=== PATIENT | male | born 1945 | race Caucasian/White ===

== ENCOUNTER 2016-10-13 22:45 | Inpatient (IN) ==
[2016-10-14 00:15] LABS: MANUAL DIFF NEEDED? NO
[2016-10-14 00:16] LABS: URINE CULTURE NEEDED? NO; URINE MICRO REVIEW NEEDED? NO; URINE SOURCE CLEAN CATCH
[2016-10-14 00:25] LABS: BASO% 0.2 % (0.0-0.8); EOS# 0.21 X1000 (0.0-0.7); EOS% 2.4 % (0.0-10.0); HEMOGLOBIN 15.1 g/dL (14.0-18.0); LYMPH# 1.58 X1000 (1.2-3.4); LYMPH% 18.4 % (20.5-51.1); MCHC 33.6 g/dL (33-37); MCV 89.3 FL (81-99); MONO# 0.81 X1000 (0.11-0.59); MONO% 9.4 % (1.7-9.3); MPV 11.3 FL (7.4-10.4); NEUT% 69.6 % (42.2-75.2); PLT 187 X1000 (130-400); RBC 5.04 XMIL (4.7-6.1)
[2016-10-14 00:26] LABS: BILIRUBIN URINE NEGATIVE (NEGATIVE); BLOOD URINE NEGATIVE (NEGATIVE); COLOR YELLOW; GLUCOSE URINE >1000 mg/dL (NEGATIVE); LEUKOCYTES URINE NEGATIVE (NEGATIVE); NITRITE URINE NEGATIVE (NEGATIVE); PROTEIN URINE NEGATIVE (NEGATIVE); SP GRAVITY URINE 1.018; TURBIDITY URINE CLEAR (CLEAR); UROBILINOGEN URINE NORMAL (NORMAL)
[2016-10-14 00:27] LABS: UR EPITHELIAL CELLS <10 /HPF (<10); URINE BACTERIA NEGATIVE /HPF; URINE RBC <10 /HPF (<10); URINE WBC <10 /HPF (<10)
[2016-10-14] MEDS ORDERED: ZOFRAN ONE (01:00)
[2016-10-14] MEDS ORDERED: DILAUDID ONE (01:01)
[2016-10-14 02:58] LABS: ALBUMIN 4.5 g/dL (3.5-5.0); CALCIUM 9.8 mg/dL (8.8-10.2); POTASSIUM 5.2 mmol/L (3.5-5.1); TOTAL BILIRUBIN 0.78 mg/dL (0.20-1.00); TOTAL PROTEIN 7.5 g/dL (6.3-8.3)
[2016-10-14] MEDS ORDERED: DILAUDID IV ONE ×4 (03:04→08:37)
[2016-10-14] MEDS ORDERED: ZOFRAN IV ONE (03:04)
--- NOTE | 2016-10-14 04:26 | PROVIDER DOCUMENTATION ---
This chart was entered by Jessa Lopez Scribe, acting as scribe for Jam Sykes MD. HPI-Abdominal Pain/GI Problem - General Chief Complaint: Abdominal Pain Stated Complaint: NAUSEA/ABD PAIN/DIARRHEA Time Seen by Provider: 10/13/16 23:43 Source: patient Allergies/Adverse Reactions: Patient Allergies Allergy/AdvReac Type Severity Reaction Status Date / Time No Known Allergies Allergy Verified 09/10/15 04:57 Home Medications: Home Medication List Medication Instructions Recorded Confirmed Last Taken Type Aspirin [Aspirin EC] 81 mg PO DAILY 10/13/16 10/13/16 10/13/16 09:00 History Canagliflozin [Invokana] 300 mg PO QAM 10/13/16 10/13/16 Unknown History Carvedilol [Coreg] 6.25 mg PO BID 10/13/16 10/13/16 Unknown History Cetirizine HCl [Zyrtec] 10 mg PO DAILY 10/13/16 10/13/16 Unknown History Dulaglutide [Trulicity] 1 each SUBQ DIRECTED 10/13/16 10/13/16 Unknown History Furosemide [Lasix] 20 mg PO QAM 10/13/16 10/13/16 Unknown History Furosemide [Lasix] 40 mg PO QPM 10/13/16 10/13/16 Unknown History Gemfibrozil 600 mg PO BID 10/13/16 10/13/16 Unknown History Glipizide 10 mg PO BID 10/13/16 10/13/16 Unknown History Losartan Potassium [Cozaar] 100 mg PO QAM 10/13/16 10/13/16 Unknown History Metformin [Glucophage] 1,000 mg PO BID 10/13/16 10/13/16 Unknown History Omeprazole [Prilosec] 1 each PO DAILY 10/13/16 10/13/16 Unknown History Rivaroxaban [Xarelto] 20 mg PO QHS 10/13/16 10/13/16 Unknown History Roflumilast [Daliresp] 1 each INH DIRECTED 10/13/16 10/13/16 Unknown History Rosuvastatin Calcium [Crestor] 40 mg PO QHS 10/13/16 10/13/16 Unknown History Salmeterol Xinafoate Inhaler 1 each INH QHS 10/13/16 10/13/16 Unknown History [Serevent Diskus] Tiotropium [place] Inhaler 1 each PO QHS 10/13/16 10/13/16 Unknown History [Spiriva] - History of Present Illness-ABD Nature of Presenting Problems: 71 Y/O M presents to ED with ABD pain. Pt states onset yesterday but has a hx of ABD complications. Pt has a hx of diverticulitis, colostomy, colostomy reversal.. Pt c/o N with watery D, no V. Abdominal Pain Onset Location: reports: suprapubic Pain Radiation: reports: no radiation Quality of Pain: reports: aching Severity in ED: reports: moderate Onset/Duration: reports: 24 hours ago Timing: reports: still present Activities at Onset: reports: none Associated Symptoms: reports: diarrhea, nausea. denies: vomiting Review of Systems - Adult - REVIEW OF SYSTEMS - ADULT Constitutional: denies: chills, fever Eyes: reports: no symptoms reported Ears, Nose, Mouth & Throat: reports: no symptoms reported Cardiovascular: reports: no symptoms reported Respiratory: reports: no symptoms reported Gastrointestinal: reports: abdominal pain, diarrhea, nausea. denies: vomiting Genitourinary: reports: no symptoms reported Musculoskeletal: reports: no symptoms reported Integumentary: reports: no symptoms reported Neurological: reports: no symptoms reported Psychiatric: reports: no symptoms reported Endocrine: reports: no symptoms reported Hematologic/Lymphatic: reports: no symptoms reported Allergic/Immunologic: reports: no symptoms reported All Other Systems: Reviewed and Negative Past History - Adult - PAST MEDICAL HISTORY-ADULT Review of Records: reports: Old Records Reviewed, Nursing Assessment Review, Medications Reviewed, Social history reviewed & non-contributory. Physical Exam-General - PHYSICAL EXAM-ADULT Initial Vital Signs Reviewed: Yes - CONSTITUTIONAL General Appearance: appears well, alert, no apparent distress - EYES Eyes: PERRL/EOMI, pink conjunctivae - HEAD, EARS, NOSE, MOUTH & THROAT HENMT: normocephalic/atraumatic, moist mucous membranes, normal ENT inspection, TMs normal, pharynx normal - NECK Neck: non-tender, full range of motion, supple, normal inspection - RESPIRATORY Respiratory: chest non-tender, lungs clear, normal breath sounds - CARDIOVASCULAR Cardiovascular: normal peripheral pulses, regular rate, rhythm - GASTROINTESTINAL (ABDOMEN) Abdominal Exam: tenderness - LYMPHATIC Lymphatic: no adenopathy - MUSCULOSKELETAL Back Exam: normal inspection Extremity: normal range of motion - SKIN Integumentary: normal color, normal turgor, warm/dry - NEUROLOGIC Neurologic: program support assistant II-XII nml as tested - PSYCHIATRIC Psych/Mental Status: normal mood/affect, normal thought content, normal thought process, oriented x 3 Progress - PLAN OF CARE/RESULTS Progress/Plan/Lab Results: Vital Signs - 8 hr 10/13/16 23:01 Temperature 97.6 F Pulse Rate 91 H Respiratory Rate 18 Blood Pressure 115/65 O2 Sat by Pulse Oximetry 98 Orders Category Date Time Status NPO Diet 10/13/16 23:03 Active flat [FLAT/UPRIGHT ABD/1 VIEW CHEST] [RAD] Stat Exams 10/13/16 23:04 Taken AMYLASE [CHEM] Stat Lab 10/13/16 23:43 Ordered CBC WITH ELECTRONIC DIFF [HEME] Stat Lab 10/13/16 23:43 Ordered COMPREHENSIVE METABOLIC PANEL [CHEM] Stat Lab 10/13/16 23:43 Ordered LIPASE [CHEM] Stat Lab 10/13/16 23:43 Ordered URINALYSIS W/POSS RFLX CULT-1 [URINALYSIS] Stat Lab 10/13/16 23:46 Ordered Result Diagrams: 10/13/16 00:00 10/13/16 00:00 - CT/MRI 1 CT Study: Abdomen, Pelvis CT Results: small bowel obstruction - CONSULTS/PCP/HOSPITALIST Notification #1 *Consult/PCP/Hospitalist*: Joey(surgeon) will consult and see patient in hospital [id number] Consult Disposition: Admit #2 Consult: Hospitalist to admit patient Time Discussed: 04:23 Departure - Departure Time of Disposition Decision: 04:25 DIAGNOSIS: Abdominal pain, Small bowel obstruction Disposition: ADMITTED INPATIENT 09 Certified Medical Emergency: Emergent Condition: Stable Referrals and Follow-Ups: Ashvin Law MD [Primary Care Provider] - - Critical Care Note This patient required my direct & personal management of CC.: Yes This chart was documented by the indicated scribe, (Jessa Lopez Scribe) and accurately reflects the services I performed and decisions made by me, Jam Sykes MD, as attested by the provider's signature.
--- NOTE | 2016-10-14 05:33 | HISTORY AND PHYSICAL ---
CHIEF COMPLAINT: Abdominal pain. PRIMARY CARE PHYSICIAN: Dr. Law. HISTORY OF PRESENTING ILLNESS: A 71-year-old male with a history of diabetes mellitus type 2, coronary artery disease, hypertension, and COPD, had presented to the emergency department with a 2 day history of having abdominal pain. He states that it was more sharp and he had some nausea symptoms. He previously had similar symptoms like this. He had a CAT scan done which did show a small bowel obstruction. Due to these presenting symptoms, it was thought that he would need hospitalization for further management. At the time of my examination, he denied any headache, vision changes, fevers, chills, chest pain, shortness of breath, hemoptysis, or any weight changes but complained of having nausea and abdominal pain. PAST MEDICAL HISTORY: Includes diabetes mellitus type 2, coronary artery disease, hypertension, hyperlipidemia, COPD. PAST SURGICAL HISTORY: Coronary stent, colon surgery, cholecystectomy. ALLERGIES: No known drug allergies. CURRENT MEDICATIONS: As listed in the MAR. SOCIAL HISTORY: He is a former smoker. He denies any history of alcohol or illicit drug use. FAMILY HISTORY: Positive for coronary artery disease in mother. REVIEW OF SYSTEMS: Twelve point review of systems listed as in the HPI. Other systems negative. PHYSICAL EXAMINATION: GENERAL: Cooperative, friendly male. He is resting comfortably now. VITAL SIGNS: Temperature 97.6 degrees, pulse 91, respirations 18, blood pressure 115/65, he is saturating 98%. HEENT: Atraumatic, normocephalic. Extraocular movements intact. PERRLA. NECK: Supple. CHEST: Clear to auscultation. CARDIOVASCULAR: Regular rate and rhythm. ABDOMEN: Soft. Some mild tenderness. Hypoactive sounds. EXTREMITIES: No edema. NEUROLOGIC: He is awake, alert, oriented x3. : No bladder distention. SKIN: Warm. LABORATORIES AND STUDIES: WBCs 8.61, hemoglobin 15.1, hematocrit 45, platelets are 187,000. Sodium 138, potassium 5.2, chloride 99, CO2 is 21, BUN is 36, creatinine is 1.6, glucose is 134. ASSESSMENT: A 71-year-old male with a history of diabetes mellitus type 2, coronary artery disease, hypertension, and chronic obstructive pulmonary disease who had presented to the emergency department with a several day history of having abdominal pain. He was found to have a small bowel obstruction on imaging. Due to his presenting symptoms, he will need hospitalization for further management. 1. Small bowel obstruction. 2. Diabetes mellitus type 2. 3. Hypertension. 4. Chronic obstructive pulmonary disease. PLAN: 1. We will admit patient to medical floor with telemetry. 2. We will keep patient NPO and give him adequate IV fluids, antiemetics, and adequate pain control. 3. We will consult general surgery. 4. We will monitor blood glucose closely and put patient on sliding scale insulin regimen. 5. We will monitor blood pressure and resume antihypertensive agents. 6. We will put the patient on DuoNebs. 7. We will continue patient on Xarelto for DVT prophylaxis. 8. We will continue to follow and reassess. cc: Matthew Lynn MD
[2016-10-14] MEDS ORDERED: NS 1,000 ML IV SCH (06:12)
[2016-10-14] MEDS ORDERED: DUONEB (A & A) INH SCH (07:30)
--- NOTE | 2016-10-14 07:46 | Diag Imaging Result Document ---
PROCEDURE NAME: CT ABD/PELVIS W/ IV CONT ONLY - 10/14/2016 CT ABDOMEN AND PELVIS WITH INTRAVENOUS CONTRAST: TECHNIQUE: Dose reduction protocol. COMPARISON: 09/16/2015. FINDINGS: The gallbladder has been removed. There are scattered splenic granuloma. The spleen is not enlarged. Normal pancreas and adrenal glands. Tiny hypodense hepatic lesion, believed to be a cyst. There is mild fatty infiltration of the liver. There are multiple bilateral renal cysts measuring up to 4.7 cm on the right and 4.0 cm on the left. No renal stones. No hydronephrosis. Small distal abdominal aortic aneurysm measuring 3.0 cm with prominent atherosclerosis and at least mild narrowing to the take off of the celiac artery , SMA, and each renal artery. There are multiple distended proximal and mid small bowel loops. The distal small bowel loops are not distended. No inflammation about the appendix. No abscess. The urinary bladder is only mildly distended. The prostate is not enlarged. IMPRESSION: 1. Mid to distal small bowel obstruction. 2. Cholecystectomy. 3. Fatty infiltration of the liver. 4. Renal cysts. 5. Small abdominal aortic aneurysm with prominent atherosclerosis. A preliminary report was given at the time of the exam. [facility]
[2016-10-14] MEDS: HUMULIN R SUBQ SCH ×5 (08:10→16:10)
[2016-10-14] MEDS: ALBUTEROL NEB INH SCH ×3 (09:00→20:16)
[2016-10-14] MEDS: ZOFRAN IV PRN ×3 (09:05→20:44)
--- NOTE | 2016-10-14 09:16 | Diag Imaging Result Document ---
PROCEDURE NAME: FLAT/UPRIGHT ABD/1 VIEW CHEST - 10/13/2016 PLAIN RADIOGRAPH OF THE CHEST AND ABDOMEN, 4 VIEWS: COMPARISON: Chest radiograph dated 09/19/2015 and chest and abdominal radiograph dated 09/17/2015. FINDINGS: There is mild gaseous distention of several loops of bowel. This appears to be predominantly colonic. It is fairly similar to the previous study. There is no evidence of large- volume free abdominal gas. Otherwise, the abdomen is grossly stable. The lungs are clear. Cardiac silhouette is unremarkable. IMPRESSION: Nonspecific mild gaseous distention of several loops of bowel.
--- NOTE | 2016-10-14 09:40 | CONSULTATION ---
DATE OF CONSULTATION: 10/14/2016 HISTORY OF PRESENT ILLNESS: This is a 71-year-old male with diabetes, coronary disease, hypertension, and chronic obstructive pulmonary disease, who has had multiple abdominal operation complications associated with diverticulitis, including Mark's reversal with leak, open cholecystectomy with a small bowel injury in the past by Dr. Li. He has had multiple recurrent bowel obstructions, last several which have been treated with bowel rest and no NG tube as he refuses these. States that over the last 24 hours he developed lack of flatus and increased abdominal distention and some colicky pain, nausea, but no vomiting, consistent with his previous episodes of bowel obstruction. He presented to the emergency department where CT scan was obtained that confirmed this. Showed no compromised bowel on his labs or CT. MEDICAL HISTORY: Diabetes, coronary disease with stents placed at least 7 years ago, hypertension, hyperlipidemia, and chronic obstructive pulmonary disease. SURGICAL HISTORY: He has had a Mark's for perforated diverticulitis with abscess and peritonitis. Subsequent colostomy reversal that leak it sounds like. He has had an attempt at a laparoscopic cholecystectomy with small-bowel injury that required repair and conversion to open cholecystectomy. MEDICATIONS: Per the MAR, but he does take some anticoagulant he does not recall. SOCIAL HISTORY: History of smoking. Denies alcohol or drugs. FAMILY HISTORY: Coronary disease. REVIEW OF SYSTEMS: Ten point negative, except for what is mentioned history of present illness. PHYSICAL EXAMINATION: Vital Signs: Temperature is 98 degrees, pulse 71, blood pressure 120/71, O2 saturation 98% on room air. General: He is alert, in no acute distress. HEENT: Has no scleral icterus. No cervical lymphadenopathy or masses. Cardiovascular: Normal rate, regular rhythm. Pulmonary: No increased work of breathing. He is on room air. Abdomen: Multiple scars. I do not feel any hernias. He is distended but nontender. There is no peritonitis. He is slightly tympanic. Integument: Otherwise warm and dry. There is no lower extremity edema. Extremities/Neurological: Muscle mass is normal throughout with normal tone and range of motion grossly. LABS: White count is 8, hematocrit 45, platelets are 187. Sodium is 138, potassium a little high at 5.2. Creatinine is 1.6. Glucose 134. LFTs and lipase are normal. Urinalysis greater than 1000 glucose, but otherwise normal. CT scan shows a bowel obstruction with dilation proximally and some relative decompression distally in the mid-small bowel, a cholecystectomy, fatty infiltration of liver, and renal cyst. He has a small abdominal aortic aneurysm at 3 cm. ASSESSMENT: This is a 71-year-old male with recurrent bowel obstruction related to multiple abdominal operations in the past. He has resolved several of these non- operatively. I have recommended NG tube placement but he refuses this, as his last several have resolved without NG tube placement. Colonoscopies within the last year that have shown polyps per the patient. I do not have these reports. Will admit him to the medicine service. We will continue serial exams and labs, IV hydration, and strict NPO. I have recommended NG tube placement for bowel decompression. Discussed risks of not doing this and he refuses, understanding the risk, but states the last several have resolved without this after a couple days of bowel rest. This is not unreasonable, but will need to monitor him closely. No plans for surgical intervention at this time. We will continue follow along. cc: MD Ashvin Rizvi MD MTDD
[2016-10-14] MEDS: PROTONIX IV SCH (09:50)
[2016-10-14] MEDS: DULCOLAX PR SCH (09:52)
[2016-10-14] MEDS: COREG PO SCH ×2 (10:05→20:44)
[2016-10-14] MEDS: COZAAR PO SCH (10:06)
[2016-10-14] MEDS: DILAUDID IV PRN ×2 (16:09→20:49)
--- NOTE | 2016-10-14 17:12 | PROGRESS NOTE ---
DATE: 10/14/2016 SUBJECTIVE: Patient is stable. Still has bloated abdomen and some abdominal distention. Noted to be SBO per CT scan abdomen and pelvis earlier today. OBJECTIVE: Labs acceptable. CV: RRR. Lungs: CTA. Abdomen: No significant bowel sounds. Moderate abdominal distention and soft. Extremities: No edema. Neuro: Nonfocal. Pain medicine on board. ASSESSMENT: 1. SBO. 2. COPD. 3. Type 2 diabetes mellitus. 4. CAD. PLAN: Continue conservative approach with Dulcolax suppositories being given x1. IVF and bowel rest in place. Dr. Kieran Cook is following with us in case surgical means are required to remedy the situation. In the past he has responded to conservative measures. Symptoms thought likely related to adhesions. cc: Ashvin Law MD
[2016-10-14] MEDS: SPIRIVA INH SCH (20:16)
[2016-10-14] MEDS: SEREVENT DISKUS INH SCH (20:16)
[2016-10-14] MEDS: NS 1,000 ML IV SCH ×2 (20:40)
[2016-10-14] MEDS ORDERED: D50W SYRINGE IV ONE (20:41)
[2016-10-14] MEDS: XARELTO PO SCH (20:44)
[2016-10-15] MEDS: ZOFRAN IV PRN ×4 (00:28→14:59)
[2016-10-15] MEDS: DILAUDID IV PRN ×6 (00:28→20:41)
[2016-10-15] MEDS: HUMULIN R SUBQ SCH ×5 (00:33→21:34)
[2016-10-15] MEDS: ALBUTEROL NEB INH SCH ×4 (03:35→20:17)
[2016-10-15] MEDS: NS 1,000 ML IV SCH ×3 (05:55→13:38)
[2016-10-15 06:56] LABS: MANUAL DIFF NEEDED? NO
[2016-10-15 07:04] LABS: BASO% 0.1 % (0.0-0.8); EOS# 0.25 X1000 (0.0-0.7); HEMATOCRIT 41.8 % (42.0-52.0); HEMOGLOBIN 13.8 g/dL (14.0-18.0); IMM GRAN# 0.02 X1000 (0.0-0.04); IMM GRAN% 0.2 % (0.0-0.5); LYMPH# 1.12 X1000 (1.2-3.4); LYMPH% 13.2 % (20.5-51.1); MCH 29.9 PG (27-31); MCV 90.5 FL (81-99); MONO# 0.67 X1000 (0.11-0.59); MONO% 7.9 % (1.7-9.3); MPV 10.9 FL (7.4-10.4); NEUT% 75.6 % (42.2-75.2); PLT 155 X1000 (130-400); RBC 4.62 XMIL (4.7-6.1)
--- NOTE | 2016-10-15 08:10 | PROGRESS NOTE ---
DATE: 10/15/2016 SUBJECTIVE: No abdominal pain. He started passing gas this morning. No nausea, vomiting overnight. OBJECTIVE: Vital Signs: Temperature is 99, pulse 89, blood pressure 139/80. Oxygen saturation 95% on room air. General: He is alert, in no acute distress. HEENT: No scleral icterus. Cardiovascular: Normal rate, regular rhythm. Pulmonary: He is on room air with no increased work of breathing. Abdomen: Soft, much less distended, nontender. Integument: Warm, dry. No lower extremity edema. LABS: White count is 8, hematocrit 41, platelets are 155. Glucose 85. Abdominal x-ray this morning shows air throughout the colon. No significant small bowel loop dilation. ASSESSMENT AND PLAN: A 71-year-old male with history of recurrent bowel obstruction, multiple abdominal operations. He has resolved this nonoperatively. This morning will give him clear liquids. Plan to advance the diet to soft tomorrow, and maybe home tomorrow. He is on IV fluids. Dr. Law is following to manage his medical issues. cc: MD Ashvin Rizvi MD
[2016-10-15] MEDS: SODIUM CHLORIDE 0.9% INJ SCH (08:16)
[2016-10-15] MEDS: PROTONIX IV SCH (08:16)
[2016-10-15] MEDS: COZAAR PO SCH (08:18)
[2016-10-15] MEDS: COREG PO SCH ×2 (08:18→21:33)
[2016-10-15] MEDS: DULCOLAX PR SCH (08:19)
[2016-10-15 08:30] LABS: CALCIUM 9.4 mg/dL (8.8-10.2); POTASSIUM 4.7 mmol/L (3.5-5.1)
--- NOTE | 2016-10-15 08:48 | Diag Imaging Result Document ---
PROCEDURE NAME: ABDOMEN FLAT/UPRIGHT - 10/15/2016 FLAT AND UPRIGHT RADIOGRAPH OF THE ABDOMEN, 4 VIEWS: COMPARISON: 10/13/2016. FINDINGS: There has been interval improvement of the mildly gas distended loops of bowel seen on the previous study. There is now patchy bowel gas and stool with only very mild distention of a few loops. There is no evidence of large-volume free abdominal gas. There is no definite organomegaly. IMPRESSION: Interval improvement of gaseous distention of bowel.
--- NOTE | 2016-10-15 13:28 | PROGRESS NOTE ---
DATE: 10/15/2016 SUBJECTIVE: Patient overall feeling some better. Less abdominal pain. He was sleeping. A little bit difficult to wake up but not bad. OBJECTIVE: Vital signs: Afebrile, pulse 89, respirations 16, blood pressure 139/80, O2 saturation on room air 94 to 96%. General: Patient is now aroused, awake and alert. Answers questions appropriately. He is smiling. He says his belly is less distended. Cardiovascular: RRR. Lungs: CTA. Abdomen: Soft. Active bowel sounds. Decreased distention is noted. Still mild distention. Extremities: No edema. IMAGING: X-rays done this morning on the abdomen reveal improved small bowel obstruction. LABS: White count 8, hemoglobin 13.8, platelets 155,000. BMP shows 39 BUN, creatinine 1.6, potassium 4.7, sodium 137. ASSESSMENT: 1. Small bowel obstruction. Improving with conservative measures. 2. Chronic obstructive pulmonary disease. 3. Type 2 diabetes mellitus. 4. Coronary artery disease. PLAN: Continue IVF and daily Dulcolax suppositories. We will reduce his Dilaudid dose. Continue sliding scale insulin and COPD medications. He is now up to clear liquids per Dr. Cook, the surgeon. Repeat x-ray in the morning. cc: Ashvin Law MD
[2016-10-15] MEDS: SPIRIVA INH SCH (20:17)
[2016-10-15] MEDS: SEREVENT DISKUS INH SCH (20:18)
[2016-10-15] MEDS: XARELTO PO SCH (20:41)
[2016-10-16] MEDS: DILAUDID IV PRN (00:17)
[2016-10-16] MEDS: ALBUTEROL NEB INH SCH ×4 (03:23→20:08)
[2016-10-16 06:44] LABS: MANUAL DIFF NEEDED? NO
[2016-10-16 06:49] LABS: BASO% 0.2 % (0.0-0.8); EOS# 0.25 X1000 (0.0-0.7); EOS% 5.4 % (0.0-10.0); LYMPH# 1.41 X1000 (1.2-3.4); LYMPH% 30.3 % (20.5-51.1); MCH 30.1 PG (27-31); MCHC 33.3 g/dL (33-37); MCV 90.2 FL (81-99); MONO# 0.53 X1000 (0.11-0.59); MONO% 11.4 % (1.7-9.3); MPV 10.3 FL (7.4-10.4); NEUT% 52.7 % (42.2-75.2); PLT 114 X1000 (130-400); RBC 3.99 XMIL (4.7-6.1)
[2016-10-16 07:13] LABS: CALCIUM 8.9 mg/dL (8.8-10.2)
--- NOTE | 2016-10-16 09:06 | PROGRESS NOTE ---
DATE: 10/16/2016 SUBJECTIVE: Patient overall doing well, is passing gas readily, no stool. No significant abdominal pain. OBJECTIVE: Vital signs: Afebrile. Pulse 69, respirations 18, blood pressure 148/74, O2 sat on room air 95%. CV: RRR. Lungs: CTA. Abdomen: Protuberant, active bowel sounds noted in all 4 quadrants. No pinpoint tenderness. Mild distension. Extremities: No calf tenderness, cord, or edema. LABS: White count 4.66, hemoglobin 12, platelets 114. Sodium 140, potassium 4.0, BUN 31, creatinine 1.3, CO2 of 22, glucose 112. ASSESSMENT: 1. Small bowel obstruction, improving. 2. Chronic obstructive pulmonary disease. 3. Type 2 diabetes mellitus. 4. Coronary artery disease. 5. Leukopenia/thrombocytopenia. PLAN: At this time, continue daily Dulcolax suppositories. Will advance his diet to GI soft diet. Continue to monitor blood sugars and give SSI as required. He has just had a KUB this morning, and will review that. Will ambulate the patient, recheck later today. cc: Ashvin Law MD
[2016-10-16] MEDS: PROTONIX IV SCH (09:44)
[2016-10-16] MEDS: SODIUM CHLORIDE 0.9% INJ SCH (09:44)
[2016-10-16] MEDS: COZAAR PO SCH (09:44)
[2016-10-16] MEDS: COREG PO SCH ×2 (09:45→21:07)
[2016-10-16] MEDS: DULCOLAX PR SCH (09:45)
--- NOTE | 2016-10-16 10:12 | Diag Imaging Result Document ---
PROCEDURE NAME: CASEY ABDOMEN - 10/16/2016 ABDOMEN TWO VIEWS: FINDINGS: No free air beneath the diaphragm. There is a surgical clip in the right upper quadrant likely from cholecystectomy. No bowel obstruction. No organomegaly. Mild degenerative spine changes. IMPRESSION: No definite obstruction on the current exam.
[2016-10-16] MEDS: HUMULIN R SUBQ SCH ×4 (11:43→21:08)
--- NOTE | 2016-10-16 13:43 | PROGRESS NOTE ---
DATE: 10/16/2016 SUBJECTIVE: Feels better. Continues to pass gas. No nausea, vomiting. Tolerating oral intake. OBJECTIVE: Vital signs: No fevers. Pulse 69, blood pressure 148/74. Abdomen: Soft, much less distended, nontender. Integument: Warm ,dry. HEENT: No scleral icterus. Cardiovascular: Normal rate, regular rhythm. LABS: White count down to 4, hematocrit 36, creatinine is 1.3, glucose 112. ASSESSMENT/PLAN: This is a 71-year-old male with multiple abdominal operations who presents with a episode of bowel obstruction that resolved nonoperatively. Will advance the diet to soft today. If he tolerates this be okay for him to go home. He can follow up with me as needed in the future, will not schedule appointment but I have given my contact information. He can call if he has any issues. cc: MD Ashvin Rizvi MD
[2016-10-16] MEDS: NS 1,000 ML IV SCH (14:27)
[2016-10-16] MEDS: PROTONIX PO SCH (14:38)
[2016-10-16] MEDS: SPIRIVA INH SCH (20:08)
[2016-10-16] MEDS: SEREVENT DISKUS INH SCH (20:08)
[2016-10-16] MEDS: XARELTO PO SCH (21:07)
[2016-10-16] MEDS ORDERED: TYLENOL PO PRN (21:21)
[2016-10-17] MEDS: ALBUTEROL NEB INH SCH ×2 (03:41→08:07)
[2016-10-17] MEDS: HUMULIN R SUBQ SCH (06:34)
[2016-10-17 07:03] LABS: MANUAL DIFF NEEDED? NO
[2016-10-17 07:07] LABS: BASO% 0.2 % (0.0-0.8); EOS# 0.31 X1000 (0.0-0.7); EOS% 6.3 % (0.0-10.0); HEMATOCRIT 37.5 % (42.0-52.0); HEMOGLOBIN 12.7 g/dL (14.0-18.0); LYMPH# 1.33 X1000 (1.2-3.4); LYMPH% 27.2 % (20.5-51.1); MCH 30.2 PG (27-31); MCHC 33.9 g/dL (33-37); MCV 89.3 FL (81-99); MONO# 0.52 X1000 (0.11-0.59); MONO% 10.6 % (1.7-9.3); MPV 10.9 FL (7.4-10.4); NEUT% 55.7 % (42.2-75.2); PLT 131 X1000 (130-400)
--- NOTE | 2016-10-17 07:14 | PROGRESS NOTE ---
DATE: 10/17/2016 SUBJECTIVE: Patient doing well. Tolerating a GI soft diet. Having a bowel movement. No nausea, no vomiting. OBJECTIVE: Vital Signs: Patient is currently afebrile. His vital signs have been stable. General: No acute distress. HEENT: Normocephalic atraumatic. Pupils equal, round, reactive to light. Mucous membranes moist. Oropharynx benign. Neck: Supple. Trachea midline. Cardiovascular: Regular rate and rhythm. Lungs: Grossly clear. Abdomen: Soft. Nontender. Positive bowel sounds. LABORATORY: From yesterday reviewed, essentially within normal limits. ASSESSMENT AND PLAN: A 71-year-old, male with a small-bowel obstruction after multiple surgical interventions. Small-bowel obstruction: The patient resolved clinically. From a surgical point of view he could be discharged home. cc: MD Ashvin Osullivan MD
[2016-10-17] MEDS: DULCOLAX PR SCH ×2 (07:30→08:06)
[2016-10-17] MEDS: COZAAR PO SCH ×2 (07:30→08:06)
[2016-10-17] MEDS: PROTONIX PO SCH ×2 (07:31→08:06)
[2016-10-17] MEDS: COREG PO SCH ×2 (07:31→08:06)
[2016-10-17 07:43] VITALS: BP 127/97
[2016-10-17 07:43] LABS: AGAP 14; BUN 22 mg/dL (8-22); CALCIUM 9.4 mg/dL (8.8-10.2); CHLORIDE 106 mmol/L (98-107); COSMO 291; POTASSIUM 4.4 mmol/L (3.5-5.1); SODIUM 143 mmol/L (136-145); TCO2 23 mmol/L (25-35)
--- NOTE | 2016-10-17 09:02 | PROGRESS NOTE ---
DATE: 10/17/2016 SUBJECTIVE: Mr. Cherry is doing better. The patient is passing flatus. He had a bowel movement. No abdominal pain. No nausea or vomiting. His x-ray done yesterday did show resolution of his obstruction. The patient evaluated by surgeon who also cleared him to be discharged from surgical point of view. No typical chest pain, palpitations. No fever or chills. The patient is ambulating well. Patient is not requiring any injectable pain medication. Patient admitted with small bowel obstruction. Known case of NIDDM, coronary artery disease, COPD, recurrent small- bowel obstruction. OBJECTIVE: Vital signs: Noted, which is stable. Lungs: Bilateral good air entry present. CVS: S1 and S2 heard. Abdomen: Soft, globular. Bowel sounds present. Mild distention. Extremities: No cyanosis, clubbing. No acute DVT. SECURITY DEVELOPER: Alert, awake. Able to move all 4 limbs. LAB DATA: Done today, WBC count 4.89, hemoglobin 12.7, hematocrit 37.5, platelet count 131. Electrolytes fairly benign. BUN was 22, creatinine 1.1. Blood sugar was 138. Patient is eager to go home. PLAN: As per PMD recommendation, I am going to discharge patient home. X-ray also showed improvement. CONSIDERATION/ASSESSMENT: 1. Small bowel obstruction. 2. Noninsulin-dependent diabetes mellitus. 3. Coronary artery disease. No chest pain. 4. Chronic obstructive pulmonary disease. Advised patient to stay on full liquid to GI soft diet. Take medicine regularly. Follow up with Dr. Law as scheduled in case of unusual abdominal pain, nausea, vomiting, constipation come to the emergency room. Overall discharge condition satisfactory. cc: MD Ashvin Vizcarra MD
--- NOTE | 2016-11-30 05:16 | DISCHARGE SUMMARY ---
ADMISSION DATE: 10/14/2016 DISCHARGE DATE: 10/17/2016 DIAGNOSES: 1. Small bowel obstruction responsive to conservative measures. 2. Type 2 diabetes mellitus. 3. Coronary artery disease. 4. Hypertension. 5. Chronic obstructive pulmonary disease. 6. Dyslipidemia. 7. Leukopenia/thrombocytopenia mild. 8. 3.0 cm abdominal aortic aneurysm. 9. Fatty liver. 10. Mild dehydration resolved. 11. PAF on chronic Xarelto. CONSULTANTS: Dr. Kieran Cook M.D. General Surgery. PROCEDURES: CT scan of abdomen and pelvis with IV contrast done 10/14/2016 revealing mid to distal small bowel obstruction. Prior cholecystectomy. Fatty liver. Renal cyst. Small AAA with prominent atherosclerosis. REASON FOR ADMISSION AND HOSPITAL COURSE: The patient is a 71-year-old white male followed in my medical practice who presented to the emergency room with a sharp abdominal pain for 2 days prior to admission and nausea. Similar symptoms for what he has had was SBO in the past. CT scan of the abdomen did confirm SBO. The patient was admitted and given IV hydration, given antiemetics. He refused NG-tube but fortunately responded to Dulcolax suppositories and antiemetics. The SBO resolved gradually over the next few days. Dr. Kieran Cook assisted in his care and in surgical consultation. LABORATORY DATA: On admission, white count 8.61, at discharge 4.89. Hemoglobin 15.1 and 12.7, platelets normal. Severo at 114, discharge 131. CMP was notable for a potassium of 5.2 and creatinine 1.6 on admission. Amylase, lipase and LFTs normal by discharge, and hydration discharge creatinine was 1.1 and potassium 4.4. Flat and upright of the abdomens were repeated and showed resolution of the SBO and the patient began to tolerate liquids and then GI soft diet. By 10/17/2016, it was thought he could be discharged home to follow up in my office in a week. DISCHARGE MEDICATIONS: 1. Lasix 60 mg p.o. every morning. 2. Zyrtec 10 mg p.o. daily. 3. Spiriva 1 inhalation daily. 4. Serevent 1 puff daily. 5. Trulicity 1.5 mg subcutaneously 1 time per week. 6. Glipizide 10 mg p.o. b.i.d. 7. Invokana 300 mg p.o. every morning. 8. Crestor 40 mg p.o. at bedtime. 9. Metformin 1000 mg p.o. b.i.d. 10. Xarelto 20 mg p.o. at bedtime. 11. Coreg 6.25 mg p.o. b.i.d. 12. Cozaar 100 mg p.o. daily. 13. Aspirin 81 mg p.o. daily. 14. Omeprazole 20 mg p.o. daily. 15. Daliresp 500 mcg p.o. daily. 16. Lopid 600 mg p.o. b.i.d. cc: Ashvin Law MD
--- NOTE | 2016-12-29 08:25 | CONSULTATION ---
DATE OF CONSULTATION: 12/28/2016 HISTORY OF PRESENT ILLNESS: This is a 71-year-old male, known to me, who is patient of Dr. Schneider, who has a history of chronic recurring small bowel obstruction after multiple abdominal operation, most of which were performed by Dr. Li. He usually resolves these within a short interval after bowel rest. He refused NG tube and for the most part manages these bowel obstructions himself and seems to do okay with this. He states that after a large meal of fresh vegetables, corn, turnip greens, okra he developed acute onset of abdominal distention, colicky pain with severe vomiting. He continued to pass gas through this, but would vomit bilious emesis throughout, prompting his emergency room presentation. He was given fluids, antiemetics, and some pain medicine and he feels much better. He showered this morning. He said he continues to pass gas and his distention is much improved during his brief admission. PAST MEDICAL HISTORY: Diabetes, coronary disease with stents, hypertension, hyperlipidemia, COPD, atrial fibrillation on anticoagulation. PAST SURGICAL HISTORY: He has had a Mark's procedure for perforated diverticulitis complicated by an abscess and peritonitis. He had a subsequent colostomy reversal which apparently leaked. He had laparoscopic converted open cholecystectomy with a small bowel injury. SOCIAL HISTORY: History of smoking but denies any current use, including alcohol or drugs. FAMILY HISTORY: Coronary disease. REVIEW OF SYSTEMS: Ten point otherwise negative except was is mentioned in the HPI. PHYSICAL EXAMINATION: Vital Signs: Temperature is 97.8 degrees, pulse 70, blood pressure 147/74, oxygen saturation is 98% on room air. General: He is alert, no acute distress. Neck: There are no cervical masses. HEENT: No scleral icterus. Cardiovascular: Normal rate. Regular rhythm. Pulmonary: No increased work of breathing. Abdomen: Soft, nontender, nondistended, non- tympanic. Integumentary: Otherwise warm, dry. I do not see any lower extremity edema. LABS: White count when he came in it was 16, down to 8. Hematocrit was 43, down to 42. Platelets of 166,000. Creatinine was 1.4 when he came in, down to 1.3. Glucose 138. CT scan of the abdomen and pelvis shows at least partial mid small bowel obstruction. There appears to be a transition point in the anterior abdomen. I do see any free fluid or free air or evidence of bowel compromise. ASSESSMENT AND PLAN: This is a 71-year-old male with recurrent bowel obstruction related to multiple abdominal operations. I think an exploratory laparotomy would be wrought with complication, be very difficult, most definitely result in worse scar tissue, and unlikely to benefit him from this standpoint. He also seems to be resolving this obstruction. I think this is most likely secondary to a high residual diet that he had this weekend, full of fresh vegetables that have likely caused somewhat of a phytobezoar type picture, but he seems to be getting over this quickly. There was similar story just a couple months ago when he was here. We will continue to treat him nonoperatively. Will hold off on NG tube now which the patient is refusing, but will manage him NPO with IV fluids for now and gradually begin advancing his diet over the next 24 hours. I talked about the plan with Dr. Law. Will continue to follow along. cc: MD Ashvin Rizvi MD
== END 2016-10-17 08:56 | disposition home or self-care (01) ==
LOC: ED 22:45 → EDIPHOLD 10-14 04:59 → SUATTDRO 10-14 04:59 → 3N 10-14 15:31 → DIRADM 10-15 14:03 → EDIPHOLD 10-15 14:04 → 3N 10-15 14:15 → EDIPHOLD 10-15 14:17 → 3N 10-15 14:26
PROVIDERS: ADMIT Family Medicine; ATTEND Family Medicine

== ENCOUNTER 2016-12-27 18:27 | Inpatient (IN) ==
[2016-12-27] MEDS ORDERED: ZOFRAN IV ONE (18:50)
[2016-12-27] MEDS ORDERED: NS 1,000 ML IV ONE (18:50)
--- NOTE | 2016-12-27 19:08 | Diag Imaging Result Doc PS360 ---
EXAM: FLAT/UPRIGHT ABD/1 VIEW CHEST HISTORY: recurrent SBO TECHNIQUE: Three views COMPARISON: 10/16/2016 FINDINGS: The lungs are well expanded. No cardiomegaly. No pneumonia. No free air beneath the diaphragm. There are air distended loops of bowel in the midabdomen. No organomegaly. There is a surgical clip in the right upper quadrant possibly from cholecystectomy. IMPRESSION: Small bowel obstruction. Electronically signed by Donnie Hunter 12/27/2016 7:06 PM
[2016-12-27 19:45] LABS: BASO% 0.2 % (0.0-0.8); EOS# 0.27 X1000 (0.0-0.7); EOS% 1.6 % (0.0-10.0); HEMATOCRIT 43.8 % (42.0-52.0); HEMOGLOBIN 14.7 g/dL (14.0-18.0); IMM GRAN# 0.02 X1000 (0.0-0.04); IMM GRAN% 0.1 % (0.0-0.5); LYMPH# 1.08 X1000 (1.2-3.4); LYMPH% 6.4 % (20.5-51.1); MANUAL DIFF NEEDED? NO; MCH 29.6 PG (27-31); MCHC 33.6 g/dL (33-37); MCV 88.1 FL (81-99); MONO# 0.93 X1000 (0.11-0.59); MONO% 5.5 % (1.7-9.3); MPV 11.5 FL (7.4-10.4); NEUT% 86.2 % (42.2-75.2); PLT 202 X1000 (130-400); RBC 4.97 XMIL (4.7-6.1)
[2016-12-27] MEDS ORDERED: DILAUDID IV ONE ×2 (19:48→23:12)
[2016-12-27 20:08] LABS: ALBUMIN 4.3 g/dL (3.5-5.0); CALCIUM 10.2 mg/dL (8.8-10.2); POTASSIUM 5.1 mmol/L (3.5-5.1); TOTAL BILIRUBIN 0.38 mg/dL (0.20-1.00); TOTAL PROTEIN 7.9 g/dL (6.3-8.3)
[2016-12-27 21:07] LABS: URINE CULTURE NEEDED? NO; URINE MICRO REVIEW NEEDED? NO; URINE SOURCE CLEAN CATCH
[2016-12-27 21:09] LABS: BILIRUBIN URINE NEGATIVE (NEGATIVE); BLOOD URINE NEGATIVE (NEGATIVE); COLOR YELLOW; GLUCOSE URINE >1000 mg/dL (NEGATIVE); LEUKOCYTES URINE NEGATIVE (NEGATIVE); NITRITE URINE NEGATIVE (NEGATIVE); PROTEIN URINE NEGATIVE (NEGATIVE); SP GRAVITY URINE 1.016; TURBIDITY URINE CLEAR (CLEAR); UROBILINOGEN URINE NORMAL (NORMAL)
[2016-12-27 21:10] LABS: UR EPITHELIAL CELLS <10 /HPF (<10); URINE BACTERIA NEGATIVE /HPF; URINE RBC <10 /HPF (<10); URINE WBC <10 /HPF (<10)
[2016-12-27] MEDS ORDERED: ZOFRAN IV PRN (22:05)
[2016-12-27] MEDS ORDERED: MORPHINE IV PRN (22:05)
[2016-12-27] MEDS ORDERED: SODIUM CHLORIDE 0.9% INJ SCH (22:05)
[2016-12-27] MEDS ORDERED: MORPHINE ONE (22:09)
--- NOTE | 2016-12-27 22:12 | Diag Imaging Result Doc PS360 ---
EXAM: ABDOMEN/PELVIS W/O CONTRAST HISTORY: sbo TECHNIQUE: COMPARISON: 10/14/2016 FINDINGS: The gallbladder has been removed. Spleen is not enlarged. There are scattered splenic granuloma. Normal adrenal glands. Normal noncontrasted liver although there may be mild fatty infiltration. There are scattered hypodense renal lesions likely representing cysts. No renal stones. No hydronephrosis. Prominent atherosclerosis. Small abdominal aortic aneurysm measuring 3.1 cm. There are multiple distended small bowel loops filled with air and debris. Debris is also within a nondistended colon. The distal small bowel loops are normal. The urinary bladder is moderately distended and appears normal. The prostate is not enlarged. Normal appendix. IMPRESSION: 1.There is at least a partial mid small bowel obstruction 2.Cholecystectomy 3.Small abdominal aortic aneurysm with prominent atherosclerosis 4.Renal cysts. Electronically signed by Donnie Hunter 12/27/2016 10:09 PM
[2016-12-27] MEDS: PROTONIX IV SCH (23:25)
[2016-12-28] MEDS: NS 1,000 ML IV SCH ×2 (00:27→15:48)
[2016-12-28] MEDS: PROTONIX IV SCH ×2 (00:28→21:18)
[2016-12-28] MEDS: ZOSYN 3.375 GM/NS 3.375 GM/50 ML IVPB IV SCH ×4 (00:28→18:36)
[2016-12-28] MEDS: DILAUDID IV PRN ×6 (02:09→22:30)
--- NOTE | 2016-12-28 04:45 | HISTORY AND PHYSICAL ---
PRIMARY CARE PROVIDER: Dr. Tacho Law. CHIEF COMPLAINT: Abdominal pain with nausea, vomiting. HISTORY OF PRESENT ILLNESS: Mr. Chiu is a 71-year-old male with a past medical history most notable for diabetes mellitus type 2, coronary artery disease, hypertension, hyperlipidemia, COPD, congestive heart failure, atrial fibrillation, and previous colon surgery secondary to bowel perforation, as well as a previous small bowel obstruction. [facility] with complaints of abdominal pain with nausea and vomiting that started at approximately 4 p.m. earlier that day. The patient reports that he has had a small bowel obstruction before and his pain was just like what he had previously. The patient states that he vomited approximately 5-6 times prior to arrival to the ER, and after the arrival though since being given antiemetics, he has not vomited since. He reports that he is having mid lower abdominal pain just inferior to his umbilicus. He states his pain is constant and sharp in nature, though pain medicine and movement does help improve his pain at times. He denies any diarrhea. He does report that his last bowel movement was just earlier in the day prior to him arriving to the ER. States it was normal. He denied any hematochezia or melena. He also denied any hematemesis. He denies any fever or body aches but has reported that he has had chills. He denies any headache, dizziness, lightheadedness, chest pain, shortness of breath or cough. He denies any dysuria or urinary frequency. He also denies any pain, numbness tingling or swelling in extremities. Upon evaluation in the ER, patient did have an abdomen flat and upright with 1 view of chest which showed small bowel obstruction. The patient does have some leukocytosis with a white blood cell count of 16.82. We did do a CT abdomen and pelvis which showed a partial mid small-bowel obstruction. The patient does have some abdominal distention noted, though since being given some antiemetics, he has not vomited since and his pain is controlled at this time. I did discuss with the patient that he may need an NG tube, and the patient expressed that he did not want to have an NG tube placed at this time unless it was absolutely necessary. Given that the patient is not actively vomiting at this time and that his pain has improved, we will hold off on this at this time and await Surgery's evaluation and recommendations. REVIEW OF SYSTEMS: A 12 point review of systems was conducted with the patient. All were negative except for pertinent positives mentioned above HPI. PAST MEDICAL HISTORY: 1. Diabetes mellitus type 2. 2. Coronary artery disease. 3. Hypertension. 4. Hyperlipidemia. 5. COPD. 6. Atrial fibrillation, currently on Xarelto. 7. Congestive heart failure. PAST SURGICAL HISTORY: 1. Coronary stent placement x3. 2. Colon surgery secondary to bowel perforation. 3. Cholecystectomy. SOCIAL HISTORY: The patient is a former smoker. He reports that he smoked 2-3 packs of cigarettes per day for approximately 43 years. He quit smoking 5 years ago. He denies any alcohol or illicit drug use. He currently lives at home with his who was present at the bedside during our examination. FAMILY HISTORY: Positive for coronary artery disease in his mother. ALLERGIES: Patient reports no known allergies, though does state that he would not like to receive any Phenergan if possible. HOME MEDICATIONS: 1. Amlodipine 5 mg p.o. daily. 2. Aspirin 81 mg p.o. daily. 3. Invokana 300 mg p.o. q.a.m. 4. Coreg 6.25 mg p.o. b.i.d. 5. Zyrtec 10 mg p.o. daily. 6. Trulicity 1 each subcutaneous as directed. 7. Lasix as directed. The patient alternates 20 mg and 40 mg on separate days as directed. 8. Gemfibrozil 600 mg p.o. b.i.d. 9. Glipizide 10 mg p.o. b.i.d. 10. Cozaar 100 mg p.o. q.a.m. 11. Metformin 1000 mg p.o. b.i.d. 12. Omeprazole 20 mg p.o. daily. 13. Xarelto 20 mg p.o. at bedtime. 14. Daliresp 500 mcg p.o. daily. 15. Crestor 40 mg p.o. at bedtime. 16. Serevent Diskus 1 puff inhaled daily. 17. Spiriva 1 puff inhaled daily. DIAGNOSTIC DATA/LABORATORY RESULTS: White blood cell count 16.82, hemoglobin 14.7, hematocrit 43.8, platelet count is 202,000. Sodium 140, potassium 5.1, chloride 101, bicarb 23, BUN 33, creatinine 1.4. GFR 50. Glucose is 210, calcium 10.2, liver function tests within normal limits. Urinalysis was obtained via clean catch, was positive for greater than 1000 glucose. Otherwise within normal limits. Abdomen flat and upright with one view of chest showed a small bowel obstruction. Per radiology, CT abdomen and pelvis without contrast showed a partial mid small-bowel obstruction. There is also noted a small abdominal aortic aneurysm with prominent atherosclerosis and a renal cyst. This was per Radiology. PHYSICAL EXAMINATION: VITAL SIGNS: Temperature 97.6 degrees, heart rate 76, respirations 18, blood pressure 128/73, oxygen saturation is 96% on room air. GENERAL: Mr. Chiu is a pleasant, 71-year-old male who is resting comfortably on the ER stretcher. He is in no acute distress. He was awake, alert and able to answer all questions appropriately. HEENT: Head is atraumatic, normocephalic. Pupils are equal, round, reactive to light, were 3 mm bilaterally and brisk. Oral mucosa is moist. NECK: Supple. Trachea midline. CARDIOVASCULAR: Patient has normal S1, S2. No murmurs, gallops, rubs appreciated with a regular rate and rhythm. PULMONARY: Patient has symmetrical chest expansion bilaterally. Lung sounds clear to auscultation bilateral, full kang. ABDOMEN: Soft though is distended. He does have tenderness noted in mid lower abdomen just inferior to his umbilicus, but there is no rebound tenderness noted. Bowel sounds were present in all 4 quadrants and are hyperactive. EXTREMITIES: No cyanosis, clubbing, or edema noted. Pulse, motor and sensory are intact in all extremities. Pedal pulses are 3+ bilaterally. Capillary refill is less than 3. INTEGUMENTARY: The patient's skin is pink, warm, dry, and intact. No lesions or sores noted. NEUROLOGICAL: Patient is alert and oriented x 4. Cranial nerves 2-12 are grossly. ASSESSMENT AND PLAN: 1. Small-bowel obstruction. CT abdomen and pelvis did note a partial mid small- bowel obstruction. We will place the patient NPO. He will be on bowel rest. The patient has expressed that he does not want an NG tube at this time unless absolutely necessary. Pain at this time is controlled and he has not had any further nausea or vomiting. We will hold off on this for now though continue to monitor. The patient did have an elevated white blood cell count 16.82. He has had nausea and vomiting. This could be reactive from his nausea/ vomiting, though the patient denies fever he has reported chills. We did go ahead and cover him with Zosyn 3.375 g IV q.[address] a surgical consult with Dr. Cook per the patient's request and will await his evaluation and further recommendations. 2. Nausea and vomiting. At this time the patient's nausea and vomiting has subsided and he has p.r.n. orders for Zofran as needed. 3. Diabetes mellitus type 2. We have held the patient's oral diabetic medications at this time and have placed him on a sliding scale moderate dose lispro insulin so that we can better control his glucose levels and also since the patient's creatinine is slightly elevated at this time. We will continue to monitor closely. 4. Hypertension. We will continue the patient's home medications for this. 5. History of atrial fibrillation, currently on Xarelto. The patient is in sinus rhythm with occasional PVCs. His rate is controlled in the 80s. We will continue to monitor with telemetry closely. 6. Chronic obstructive pulmonary disease. We will continue the patient's Spiriva and Serevent Diskus. The patient's BUN and creatinine were slightly elevated. He did receive a 1 L normal saline bolus in the ER. We will continue very gentle fluid resuscitation at 75 mL/h. We will recheck a BMP in the morning. We will monitor him closely for any issues with fluid overload. The patient does have a history of congestive heart failure as well. He was placed on the medical floor with telemetry. He will have vital signs q.6 hours. We will do strict intake and output. DVT prophylaxis at this time will be provided with SCDs. The patient is also on Xarelto. Further orders and recommendations pending hospital course, diagnostic studies, and physician evaluation. Dictated by ALLIE Baker for [place] MD cc: MD Ashvin Holden MD [facility]
[2016-12-28] MEDS: HUMALOG SUBQ SCH ×4 (06:20→21:13)
[2016-12-28 06:26] LABS: MANUAL DIFF NEEDED? NO
[2016-12-28 06:30] LABS: BASO% 0.2 % (0.0-0.8); EOS# 0.16 X1000 (0.0-0.7); EOS% 1.9 % (0.0-10.0); HEMATOCRIT 42.5 % (42.0-52.0); LYMPH# 0.93 X1000 (1.2-3.4); LYMPH% 11.2 % (20.5-51.1); MCH 29.5 PG (27-31); MCHC 32.9 g/dL (33-37); MCV 89.7 FL (81-99); MONO# 0.82 X1000 (0.11-0.59); MONO% 9.8 % (1.7-9.3); MPV 11.3 FL (7.4-10.4); NEUT% 76.9 % (42.2-75.2); PLT 166 X1000 (130-400); RBC 4.74 XMIL (4.7-6.1)
[2016-12-28 06:59] LABS: CALCIUM 9.1 mg/dL (8.8-10.2); POTASSIUM 4.7 mmol/L (3.5-5.1)
[2016-12-28] MEDS: COREG PO SCH ×2 (18:16→21:18)
[2016-12-28] MEDS: SEREVENT DISKUS INH SCH (21:00)
[2016-12-28] MEDS: SPIRIVA INH SCH (21:00)
[2016-12-28] MEDS: XARELTO PO SCH (21:18)
[2016-12-29] MEDS: ZOSYN 3.375 GM/NS 3.375 GM/50 ML IVPB IV SCH ×5 (00:08→22:00)
[2016-12-29] MEDS: DILAUDID IV PRN ×7 (01:40→21:59)
[2016-12-29] MEDS: NS 1,000 ML IV SCH ×2 (04:56→18:42)
[2016-12-29] MEDS: HUMALOG SUBQ SCH ×4 (06:18→22:05)
--- NOTE | 2016-12-29 07:56 | Diag Imaging Result Doc PS360 ---
EXAM: KUB ABDOMEN HISTORY: sbo TECHNIQUE: KUB COMMENT: There is solid stool in the rectosigmoid. There are distended gas-filled small bowel loops in the upper abdomen. The configuration of the bowel loops is similar to that on 12/27/2016. IMPRESSION: Partial small bowel obstruction versus ileus. Constipation. Electronically signed by Clarence Melgar 12/29/2016 7:54 AM
[2016-12-29] MEDS: COREG PO SCH ×2 (08:25→22:09)
[2016-12-29] MEDS: DULCOLAX PR SCH (09:25)
--- NOTE | 2016-12-29 16:04 | PROGRESS NOTE ---
DATE: 12/29/2016 SUBJECTIVE: Feels well. Continues to pass gas. No nausea, vomiting, occasional lower abdominal colicky type pain, that is very intermittent. PHYSICAL EXAM: No fevers, no tachycardia. Blood pressure 124/67. Abdomen is soft, non tender. Mildly distended, but not really tympanic. Integument is warm, dry. Cardiovascular normal rate, regular rhythm. 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 He has resolved this quickly with non operative management. Dr. Law has given him suppository. I agree with this. I think it will be okay to give him clear liquids today, soft diet in the morning. If he tolerates that, go home. Will continue to follow along in the meantime. cc: MD Ashvin Rizvi MD
[2016-12-29] MEDS: SEREVENT DISKUS INH SCH ×2 (20:03)
[2016-12-29] MEDS: SPIRIVA INH SCH (20:04)
--- NOTE | 2016-12-29 21:34 | PROGRESS NOTE ---
DATE: 12/29/2016 SUBJECTIVE: Patient continues to pass gas. Having some more lower abdominal pain today than he did yesterday. OBJECTIVE: Vital signs: Afebrile. Vital signs stable. CV: RR. Lungs: CTA. Abdomen: Soft, active bowel sounds. Minimal distention. Extremities: No calf tenderness, cords or edema. DATA: KUB still shows SBO. ASSESSMENT: 1. Small-bowel obstruction recurrent likely secondary to adhesions. 2. Type 2 diabetes mellitus. 3. Hypertension. 4. Paroxysmal atrial fibrillation on Xarelto. 5. Chronic obstructive pulmonary disease. PLAN: Continue IV hydration. Will give him a Dulcolax suppository see if that will help improve peristalsis. Will continue to support the patient in regard SBO. He has not required surgical treatment in the past. We are optimistic he will clear conservatively. cc: Ashvin Law MD
[2016-12-29] MEDS: XARELTO PO SCH (22:00)
[2016-12-29] MEDS: PROTONIX IV SCH (22:05)
[2016-12-30] MEDS: ZOSYN 3.375 GM/NS 3.375 GM/50 ML IVPB IV SCH ×3 (01:18→10:30)
[2016-12-30] MEDS: DILAUDID IV PRN ×2 (01:21→04:46)
[2016-12-30] MEDS: NS 1,000 ML IV SCH ×3 (04:48→11:52)
[2016-12-30] MEDS: HUMALOG SUBQ SCH ×2 (06:37→12:01)
[2016-12-30 08:24] VITALS: BP 130/66
--- NOTE | 2016-12-30 10:01 | Diag Imaging Result Doc PS360 ---
EXAM: KUB ABDOMEN HISTORY: sbo TECHNIQUE: KUB COMMENT: There is solid stool in the rectosigmoid colon. There is gas elsewhere in the colon without evidence of significant dilatation. The stomach is not distended. There is still some gas distended small bowel loops in the midabdomen however this has diminished since the previous study of 12/29/2016. IMPRESSION: Improved small bowel obstruction. Mild constipation. Electronically signed by Clarence Melgar 12/30/2016 9:58 AM
[2016-12-30] MEDS: DULCOLAX PR SCH (10:22)
[2016-12-30] MEDS: COREG PO SCH (10:22)
--- NOTE | 2016-12-30 11:57 | PROGRESS NOTE ---
DATE: 12/30/2016 SUBJECTIVE: Patient has had 3 small bowel movements and is passing gas with no significant abdominal pain. No nausea or vomiting. He wants to advance his diet. He is on clear liquids. He is tolerating them well at this point. Complains of some left lateral epicondyle pain he has been having over the past few days. Nonexertional. OBJECTIVE: Afebrile, pulse 66, respirations 21, blood pressure 130/66, O2 saturation 99%.CV: RRR. Lungs: CTA. Abdomen: Soft. Active bowel sounds. No pinpoint tenderness. Extremities: No edema. There is tenderness of the left lateral epicondyle. ASSESSMENT: 1. SBO seems to be improving clinically. 2. Type 2 diabetes mellitus. 3. Hypertension. 4. PAF on Xarelto. 5. Chronic obstructive pulmonary disease. 6. Left lateral epicondylitis. PLAN: Try tennis elbow strap to the lateral when he gets out of the hospital. Avoid NSAIDs due to his GI difficulties currently. Consider steroid injection and recheck in 10 days when he follows up. We will check repeat KUB. Advance him to a diabetic diet and if he does well will discharge him home later at lunch or supper this evening. cc: Ashvin Lwa MD
--- NOTE | 2016-12-30 14:32 | PROGRESS NOTE ---
DATE: 12/30/2016 SUBJECTIVE: Feels well. He is tolerating a soft diet this morning and passing gas. No abdominal pain. No nausea, vomiting. OBJECTIVE: No fevers. No tachycardia. Blood pressure 130/66, oxygen saturation 99% on room air.General: He is alert. Cardiovascular: Normal rate, regular rhythm. Abdomen: Soft, mildly protuberant but nondistended, non tympanic, with no tenderness. X-RAY: Shows improving with small bowel dilation. He had a bowel movement with a suppository yesterday. He does still have some air in his colon noted on his x-ray. ASSESSMENT AND PLAN: This is a 71-year-old male with recurrent low-grade bowel obstruction. I think this one is most likely related to a high residual diet with following a large meal of fresh vegetables and he has recovered rapidly without even NG tube management. We will advance the diet to soft today. I think he is okay to go home from this standpoint. I have discussed a soft GI low residual diet for the next couple months. Will continue to monitor him. cc: MD Ashvin Rizvi MD
--- NOTE | 2017-01-13 19:59 | PROVIDER DOCUMENTATION ---
This chart was entered by Oracio Conklin Scribe, acting as scribe for Hamilton Ponce MD. HPI-Abdominal Pain/GI Problem - General Chief Complaint: Abdominal Pain Stated Complaint: NAUSEA, ABD PAIN, VOMITING,"THINKING A BOWEL OBST" Time Seen by Provider: 12/27/16 18:35 Source: patient, family Allergies/Adverse Reactions: Patient Allergies Allergy/AdvReac Type Severity Reaction Status Date / Time No Known Allergies Allergy Verified 09/10/15 04:57 Home Medications: Home Medication List Medication Instructions Recorded Confirmed Last Taken Type Aspirin [Aspirin EC] 81 mg PO DAILY 10/13/16 12/27/16 12/27/16 09:00 History Canagliflozin [Invokana] 300 mg PO QAM 10/13/16 12/27/16 12/27/16 09:00 History Carvedilol [Coreg] 6.25 mg PO BID 10/13/16 12/27/16 12/27/16 09:00 History Cetirizine HCl [Zyrtec] 10 mg PO DAILY 10/13/16 12/27/16 12/26/16 20:00 History Dulaglutide [Trulicity] 1 each SUBQ DIRECTED 10/13/16 12/27/16 12/27/16 09: 00 History Furosemide [Lasix] 20 mg PO QAM 10/13/16 12/27/16 12/25/16 09:00 History Furosemide [Lasix] 40 mg PO QAM 10/13/16 12/28/16 12/27/16 09:00 History Gemfibrozil 600 mg PO BID 10/13/16 12/27/16 12/27/16 09:00 History Glipizide 10 mg PO BID 10/13/16 12/27/16 12/27/16 09:00 History Losartan Potassium [Cozaar] 100 mg PO QAM 10/13/16 12/27/16 12/27/16 09:00 History Metformin [Glucophage] 1,000 mg PO BID 10/13/16 12/27/16 12/27/16 09:00 History Omeprazole [Prilosec] 1 each PO DAILY 10/13/16 12/27/16 12/26/16 20:00 History Rivaroxaban [Xarelto] 20 mg PO QHS 10/13/16 12/27/1612/26/17 20:00 History Roflumilast [Daliresp] 1 each PO DIRECTED 10/13/16 12/27/16 12/26/16 20:00 History Rosuvastatin Calcium [Crestor] 40 mg PO QHS 10/13/16 12/27/16 12/26/16 20:00 History Salmeterol Xinafoate Inhaler 1 each INH QHS 10/13/16 12/27/16 12/26/16 20:00 History [Serevent Diskus] Tiotropium [place] Inhaler 1 each PO QHS 10/13/16 12/27/16 12/26/16 20:00 History [Spiriva] Amlodipine Besylate 5 mg PO DAILY 12/27/16 12/27/16 12/27/16 09:00 History Amlodipine Besylate [Norvasc] 5 mg PO DAILY 12/27/16 12/27/16 12/27/16 09:00 History Bisacodyl [Dulcolax] 10 mg [place] DAILY #3 supp 12/30/16 Unknown Rx Polyethylene Glycol 3350 [Miralax] 17 gm PO DAILY #30 powd.pack 12/30/16 Unknown Rx - History of Present Illness-ABD Nature of Presenting Problems: Pt is a 71 yowm who presents to ER with CC of epigastric abdominal pain with emesis that started yesterday. Pt reports hx of small bowel obstruction. Pt reports that he has been drinking fluids and not eating, hoping that his pain would resolve on its own. No further complaints at this time. Abdominal Pain Onset Location: reports: epigastric Pain Radiation: reports: no radiation Quality of Pain: reports: aching, cramping, sharp Severity in ED: reports: moderate, severe Onset/Duration: reports: 24 hours ago Timing: reports: still present Associated Symptoms: reports: loss of appetite, nausea, vomiting. denies: anxiety, arm pain, back/neck pain, chest pain, constipation, diaphoresis, diarrhea, fever/chills, muscle aches, shortness of breath, syncope, weakness, trouble walking Last BM: unsure Emesis Description: reports: other (food particles) Review of Systems - Adult - REVIEW OF SYSTEMS - ADULT Constitutional: denies: chills, fever, fatique, night sweats, weight gain, weight loss Eyes: reports: no symptoms reported Ears, Nose, Mouth & Throat: reports: no symptoms reported Cardiovascular: reports: no symptoms reported Respiratory: reports: no symptoms reported Gastrointestinal: reports: abdominal pain (epigastric), nausea, poor appetite, vomiting. denies: hematemesis, constipation, diarrhea, difficulty swallowing, frequent heartburn, rectal bleeding Genitourinary: reports: no symptoms reported Musculoskeletal: reports: no symptoms reported Integumentary: reports: no symptoms reported Neurological: reports: no symptoms reported Psychiatric: reports: no symptoms reported Endocrine: reports: no symptoms reported Hematologic/Lymphatic: reports: no symptoms reported Allergic/Immunologic: reports: no symptoms reported All Other Systems: Reviewed and Negative Past History - Adult - PAST MEDICAL HISTORY-ADULT Review of Records: reports: Nursing Assessment Review, Medications Reviewed Respiratory: reports: COPD - PRIOR SURGERIES/PROCEDURES Surgical/Procedure History: reports: cholecystectomy, cardiac stent (3), hernia repair, bowel surgery (Small bowel obstruction) - IMMUNIZATION STATUS Childhood Immunizations: See Nurse Assessment Flu Vaccine: See Nurse Assessment - SOCIAL HISTORY Smoking: quit greater than 1 year, cigarettes Physical Exam-General - PHYSICAL EXAM-ADULT Initial Vital Signs Reviewed: Yes - CONSTITUTIONAL General Appearance: appears well, alert, moderate distress, severe distress - NECK Neck: non-tender, full range of motion, other (skin tinting) - RESPIRATORY Respiratory: chest non-tender, lungs clear, normal breath sounds, no pleuratic chest pain, no respiratory distress, no accessory muscle use. negative: respiratory distress, decreased breath sounds, accessory muscle use, wheezing - CARDIOVASCULAR Cardiovascular: normal peripheral pulses, bradycardia. negative: regular rate, rhythm, tachycardia, irregularly irregular - GASTROINTESTINAL (ABDOMEN) Abdominal Exam: normal bowel sounds, soft, no organomegaly, no pulsatile mass, distended (mildly), tenderness (epigastric). negative: non tender - PSYCHIATRIC Psych/Mental Status: normal mood/affect, normal thought content, normal thought process, oriented x 3, anxious (mildly) Progress - PLAN OF CARE/RESULTS Progress/Plan/Lab Results: Vital Signs - 8 hr 12/27/16 18:32 12/27/16 18:47 Temperature 97.8 F Pulse Rate 68 Respiratory Rate 20 Blood Pressure 121/67 O2 Sat by Pulse Oximetry 98 Orders Category Date Time Status FLAT/UPRIGHT ABD/1 VIEW CHEST [RAD] Stat Exams 12/27/16 18:48 Completed CBC WITH ELECTRONIC DIFF [HEME] Stat Lab 12/27/16 18:47 Uncollected COMPREHENSIVE METABOLIC PANEL [CHEM] Stat Lab 12/27/16 18:47 Uncollected UA NIMS W/REFLEX CULT [URINALYSIS] Stat Lab 12/27/16 18:47 Uncollected 0.9% Sodium Chloride Inj [Ns] 1,000 ml Med 12/27/16 18:50 Active IV 999 mls/hr Ondansetron [Zofran] Med 12/27/16 18:50 Discontinued 8 mg IV NOW ONE Pt refuses NG tube Result Diagrams: 12/28/16 06:12 12/28/16 06:12 - EKG 1 Time of EKG reading by physician:: 19:22 EKG Read and Signed by:: Hamilton Ponce EKG Interpretation (*Must complete 3 of following elements*): Abnormal ( Nonspecific ST abnormality) Rate: 75 Rhythm: Sinsu rhythm with occasional PVC - XRAY 1 XRAY: Bilateral XRAY Study: Chest Impression: See EMR Report XRAY Interpretation: No acute abnormality - Dr. Ponce 2 XRAY: Bilateral XRAY Study: Abdomen Impression: See EMR Report XRAY Interpretation: Small bowel obstruction - Dr. Hunter (Radiologist) - CONSULTS/PCP/HOSPITALIST Notification #1 *Consult/PCP/Hospitalist*: Dr. Acosta (Hospitlaist) Time Discussed: 20:58 Consult Disposition: Admit Departure - Departure Date of Disposition Decision: 12/27/16 Time of Disposition Decision: 20:58 DIAGNOSIS: Small bowel obstruction Disposition: ADMITTED INPATIENT 09 Certified Medical Emergency: Emergent Condition: Stable - Critical Care Note This patient required my direct & personal management of CC.: No Attestation - Physician/ OFELIA Attestation The physician spent face to face time with patient:: Yes Advanced Practice Provider documentation review:: Supervising physician onsite and consulted in the evaluation and care of this patient. The physician did have a face to face encounter with the patient. This chart was documented by the indicated scribe, (Oracio Conklin Scribe) and accurately reflects the services I performed and decisions made by me, Hamilton Ponce MD, as attested by the provider's signature.
--- NOTE | 2017-01-19 07:59 | DISCHARGE SUMMARY ---
ADMISSION DATE: 12/27/2016 DISCHARGE DATE: 12/30/2016 DIAGNOSES: 1. Small bowel obstruction resolved with conservative treatment. 2. Hypertension. 3. Chronic obstructive pulmonary disease. 4. Paroxysmal atrial fibrillation on chronic Xarelto. 5. Type 2 diabetes mellitus. 6. Hypertension. 7. Left lateral epicondylitis. 8. Small abdominal aortic aneurysm. 9. Renal cysts. Consultants Dr. Kieran Cook M.D., General Surgery. PROCEDURES: 1. Abdominal x-ray showed small bowel obstruction on admission. 2. CT scan abdomen and pelvis on admission without contrast reveal at least partial mid small bowel obstruction, prior cholecystectomy, small abdominal aortic aneurysm with prominent atherosclerosis and renal cysts. REASON FOR ADMISSION AND HOSPITAL COURSE: The patient is a 71-year-old, white male, who has had prior abdominal surgeries and recurrent SBOs which have always responded to conservative treatment. The patient came in with development of nausea and vomiting and was found with x-ray to have a small bowel obstruction confirmed by CT scan. He refused NGT placement but received some Dulcolax suppositories and bowel rest. He was treated with IV fluids and Dr. Cook followed with us, and fortunately his SBO resolved with conservative measures and he was able to start eating some by discharge and ambulating without difficulty. Blood sugars remained in check. LAB DATA: Showed white count 16.8 on admission. It dropped to 8.33 the next day after admission. Hemoglobin was 14, platelets 166,000. Blood sugars remained in the 80s to low 200s during the hospitalization. Sodium was 144, potassium 4.7, chloride 102, CO2 24, BUN 32, creatinine 1.3, calcium 9.2. Liver function tests were normal. Urinalysis is normal. At discharge he was eating and ambulating well, having no abdominal pain. His x-rays showed improvement and he was passing gas and stool. DISCHARGE MEDICATIONS: 1. Dulcolax 1 MD daily. 2. MiraLAX 17 g in 8 ounces of water daily. 3. Zyrtec 10 mg p.o. daily. 4. Spiriva 1 inhalation daily. 5. Serevent 1 puff at bedtime. 6. Trulicity 1.5 mg subcutaneous daily. 7. Glipizide 10 mg p.o. b.i.d. 8. Invokana 300 mg p.o. q.a.m. 9. Crestor 40 mg p.o. at bedtime . 10. Metformin 1000 mg p.o. b.i.d. 11. Xarelto 20 mg p.o. daily. 12. Coreg 6.25 mg p.o. b.i.d. 13. Cozaar 100 mg p.o. daily. 14. Aspirin 81 mg p.o. daily. 15. Prilosec 20 mg p.o. daily. 16. Lasix 40 mg p.o. q.a.m. 17. Continue 500 mcg p.o. daily. 18. Lopid 600 mg p.o. b.i.d. 19. Norvasc at 5 mg p.o. daily. cc: Ashvin Law MD
== END 2016-12-30 14:15 | disposition home or self-care (01) ==
LOC: ED 18:27 → SUATTDRO 22:20 → 3N 22:20
PROVIDERS: ADMIT Family Medicine; ATTEND Family Medicine

== ENCOUNTER 2019-02-13 12:58 | Inpatient (IN) ==
[2019-02-13] MEDS ORDERED: NS 1,000 ML IV ONE ×2 (13:19→20:36)
[2019-02-13] MEDS ORDERED: MORPHINE IV ONE ×2 (13:19→18:20)
[2019-02-13] MEDS ORDERED: ZOFRAN IV ONE (13:19)
[2019-02-13 13:47] LABS: BASO# 0.03 X1000 (0.0-0.2); BASO% 0.3 % (0.0-0.8); EOS# 0.25 X1000 (0.0-0.7); EOS% 2.8 % (0.0-10.0); HEMATOCRIT 43.3 % (42.0-52.0); HEMOGLOBIN 13.8 g/dL (14.0-18.0); LYMPH# 1.23 X1000 (1.2-3.4); LYMPH% 13.7 % (20.5-51.1); MCH 26.6 PG (27-31); MCHC 31.9 g/dL (33-37); MCV 83.4 FL (81-99); MONO# 0.58 X1000 (0.11-0.59); MONO% 6.4 % (1.7-9.3); NEUT# 6.92 X1000 (1.4-6.5); NEUT% 76.8 % (42.2-75.2); PLT 180 X1000 (130-400); RBC 5.19 XMIL (4.7-6.1); RDW 15.2 % (11.5-14.5); WBC 9.01 X1000 (4.8-10.8)
[2019-02-13 14:31] LABS: ALB/GLOB RATIO 1.4; ALBUMIN 4.8 g/dL (3.5-5.0); CALCIUM 10.1 mg/dL (8.8-10.2); CREATININE 1.3 mg/dL (0.7-1.2); TOTAL BILIRUBIN 0.43 mg/dL (0.20-1.00); TOTAL PROTEIN 8.3 g/dL (6.3-8.3)
[2019-02-13 14:36] LABS: POTASSIUM 5.8 mmol/L (3.5-5.1)
[2019-02-13] MEDS ORDERED: NS 500 ML IV ONE (14:50)
--- NOTE | 2019-02-13 17:21 | Diag Imaging Result Doc PS360 ---
EXAM: CT ABD/PELVIS W/IV CONT ONLY INDICATION: SBO TECHNIQUE: This exam was performed using automated exposure control, adjustment of mA or kV according to patient size, and/or use of iterative reconstruction technique. COMPARISON: 12/27/2016 FINDINGS: There has been a prior cholecystectomy. There are a couple of tiny hypodense foci involving the liver, nonspecific but likely represent tiny cysts. The spleen, pancreas, and adrenal glands are unremarkable. There are several stable renal cysts bilaterally. The kidneys are unremarkable, otherwise. The urinary bladder is largely nondistended and is essentially unremarkable, otherwise. There are multiple distended loops of small bowel containing feculent material and air-fluid levels indicating small bowel obstruction. The transition point appears to be at the mid abdomen. The distal small bowel is collapsed. The remainder of the GI tract is essentially unremarkable. There is mild mesenteric stranding in the mid the dilated loops of small bowel. No free abdominal gas or free fluid is identified. IMPRESSION: 1.High-grade small bowel obstruction as described. 2.Other incidental/nonacute findings detailed above. Electronically signed by Ludwin Pacheco 02/13/2019 5:19 PM
--- NOTE | 2019-02-13 18:06 | PROVIDER DOCUMENTATION ---
This chart was entered by Darrian Jerome Scribe, acting as scribe for Rony Ledesma MD. HPI-Abdominal Pain/GI Problem - General Chief Complaint: Abdominal Pain Stated Complaint: "BOWEL BLOCKAGE" Time Seen by Provider: 02/13/19 13:07 Source: patient, family Allergies/Adverse Reactions: Patient Allergies Allergy/AdvReac Type Severity Reaction Status Date / Time No Known Allergies Allergy Verified 02/13/19 13:10 Home Medications: Home Medication List Medication Instructions Recorded Confirmed Last Taken Type Aspirin [Aspirin EC] 81 mg PO DAILY 10/13/16 04/26/18 04/25/18 08:00 History Canagliflozin [Invokana] 300 mg PO QAM 10/13/16 04/26/18 04/25/18 08:00 History Carvedilol [Coreg] 6.25 mg PO BID 10/13/16 04/26/18 04/25/18 20:00 History Cetirizine HCl [Zyrtec] 10 mg PO DAILY 10/13/16 04/26/18 04/25/18 08:00 History Dulaglutide [Trulicity] 1 each SUBQ DIRECTED 10/13/16 04/26/18 04/11/17 08:00 History Furosemide [Lasix] 20 mg PO QAM 10/13/16 04/26/18 04/24/18 08:00 History Furosemide [Lasix] 40 mg PO QAM 10/13/16 04/26/18 04/25/18 08:00 History Gemfibrozil 600 mg PO BID 10/13/16 04/26/18 04/25/18 20:00 History Losartan Potassium [Cozaar] 100 mg PO QAM 10/13/16 04/26/18 04/25/18 08:00 History Metformin [Glucophage] 1,000 mg PO BID 10/13/16 04/26/18 04/25/18 20:00 History Omeprazole [Prilosec] 1 each PO DAILY 10/13/16 04/26/18 04/25/18 08:00 History Rivaroxaban [Xarelto] 20 mg PO QHS 10/13/16 04/26/18 04/25/18 20:00 History Roflumilast [Daliresp] 1 each PO DIRECTED 05/07/3104/26/18 04/25/18 08:00 History Rosuvastatin Calcium [Crestor] 40 mg PO QHS 10/13/16 04/26/18 04/25/18 20:00 History Salmeterol Xinafoate Inhaler 1 each INH QHS 10/13/16 04/26/18 04/25/18 20:00 History [Serevent Diskus] Tiotropium [place] Inhaler 1 each PO QHS 10/13/16 04/26/18 04/25/18 20:00 History [Spiriva] Amlodipine Besylate 5 mg PO DAILY 12/27/16 04/26/18 04/25/18 08:00 History Glucagon,Human Recombinant 1 mg IJ PRN PRN #1 kit 04/17/17 04/26/18 Unknown Rx [Glucagon Emergency Kit] Psyllium [Metamucil Powder Packet] 4 each PO DAILY 04/17/17 04/26/18 04/25/18 08:00 History Glipizide [Glipizide ER] 5 mg PO BID #20 tab.er.24 05/02/18 Unknown Rx Polyethylene Glycol 3350 [Miralax] 17 gm PO DAILY #30 powd.pack 05/02/18 Unknown Rx - History of Present Illness-ABD Nature of Presenting Problems: Pt is a 73 yom who presents to the ED with a CC of abdominal pain. Pt reports he began having abdominal pain this morning and describes his pain as a sharp pain. Pt reports a hx of diverticulitis and a low intestinal bowel blockage. Pt r eports his last BM was this morning at 0700 and reports it was normal. Pt reports a hx of COPD, diabetes, and states he is a former smoker. Pt's reports the pt has a GI appointment next week. Upon examination the pt had epigastric tenderness and decreased bowel sounds. Pt denies having a fever, headache, chest pain, or SOB. Abdominal Pain Onset Location: reports: epigastric Quality of Pain: reports: sharp Severity in ED: reports: mild Onset/Duration: reports: 1-3 hours ago Timing: reports: still present Associated Symptoms: reports: constipation, nausea, vomiting Last BM: this morning Bruising or Bleeding Gums?: No Similar Symptoms Previously?: Yes Recently seen or treated by another doctor?: Yes Review of Systems - Adult - REVIEW OF SYSTEMS - ADULT Constitutional: reports: see HPI Eyes: reports: no symptoms reported Ears, Nose, Mouth & Throat: reports: no symptoms reported Cardiovascular: reports: no symptoms reported Respiratory: reports: no symptoms reported Gastrointestinal: reports: see HPI, abdominal pain, nausea, vomiting Genitourinary: reports: no symptoms reported Musculoskeletal: reports: no symptoms reported Integumentary: reports: no symptoms reported Neurological: reports: no symptoms reported Psychiatric: reports: no symptoms reported Endocrine: reports: no symptoms reported Hematologic/Lymphatic: reports: no symptoms reported Allergic/Immunologic: reports: no symptoms reported All Other Systems: Reviewed and Negative Past History - Adult - PAST MEDICAL HISTORY-ADULT Review of Records: reports: Medications Reviewed Major Childhood Illnesses: reports: denies history Cardiovascular: reports: denies history Respiratory: reports: COPD Gastrointestinal: reports: obstruction, other (diverticulitis) Musculoskeletal: reports: denies history Neurological: reports: denies history Psychiatric: reports: denies history Endocrine/Immune: reports: denies history - PRIOR SURGERIES/PROCEDURES Surgical/Procedure History: reports: cholecystectomy, cardiac stent (3), hernia repair, bowel surgery (Small bowel obstruction) - IMMUNIZATION STATUS Childhood Immunizations: See Nurse Assessment Flu Vaccine: See Nurse Assessment - SOCIAL HISTORY Smoking: non-smoker, quit greater than 1 year Substance Use: none/never, denies Physical Exam-General - CONSTITUTIONAL General Appearance: alert, mild distress - EYES Eyes: PERRL/EOMI, pink conjunctivae - HEAD, EARS, NOSE, MOUTH & THROAT HENMT: moist mucous membranes - NECK Neck: non-tender, full range of motion - RESPIRATORY Respiratory: chest non-tender, lungs clear, normal breath sounds, no pleuratic chest pain, no respiratory distress, no accessory muscle use - CARDIOVASCULAR Cardiovascular: normal peripheral pulses, regular rate, rhythm, no edema, no gallop, no JVD - GASTROINTESTINAL (ABDOMEN) Abdominal Exam: tenderness (Epigastric), other (Decreased bowel sounds) - MUSCULOSKELETAL Extremity: normal range of motion, non-tender - SKIN Integumentary: normal color, warm/dry - NEUROLOGIC Neurologic: grossly normal, no motor/sensory deficits - PSYCHIATRIC Psych/Mental Status: normal mood/affect, normal thought content, normal thought process, oriented x 3 Progress - PLAN OF CARE/RESULTS Progress/Plan/Lab Results: Vital Signs - 8 hr 02/13/19 13:03 Temperature 97.3 F L Pulse Rate 61 Respiratory Rate 16 Blood Pressure 123/74 O2 Sat by Pulse Oximetry 98 Result Diagrams: 02/13/19 13:25 02/13/19 13:25 - CT/MRI 1 CT Study: Abdomen, Pelvis Impression: Abnormal (EXAM: CT ABD/PELVIS W/IV CONT ONLY INDICATION: SBO TECHNIQUE: This exam was performed using automated exposure control, adjustment of mA or kV according to patient size, and/or use of iterative reconstruction technique. COMPARISON: 12/27/2016 FINDINGS: There has been a prior cholecystectomy. There are a couple of tiny hypodense foci involving the liver, nonspecific but likely represent tiny cysts. The spleen, pancreas, and adrenal glands are unremarkable. There are several stable renal cysts bilaterally. The kidneys are unremarkable, otherwise. The urinary bladder is largely nondistended and is essentially unremarkable, otherwise. There are multiple distended loops of small bowel containing feculent material and air-fluid levels indicating small bowel obstruction. The transition point appears to be at the mid abdomen. The distal small bowel is collapsed. The remainder of the GI tract is essentially unremarkable. There is mild mesenteric stranding in the mid the dilated loops of small bowel. No free abdominal gas or free fluid is identified. IMPRESSION: 1.High-grade small bowel obstruction as described. 2.Other incidental/nonacute findings detailed above. Electronically signed by Ludwin Pacheco 02/13/2019 5:19 PM 02/13/19 1719 Interpreting Physician: Ludwin Pacheco MD Dictated Date/Time: 02/13/19 171 cc: Rony Ledesma MD; Ashvin Law MD) - CONSULTS/PCP/HOSPITALIST Notification #1 *Consult/PCP/Hospitalist*: Dr. Metcalf Time Discussed: 18:00 Reason/Comments: Made aware of pt and accepts admission Consult Disposition: Admit Departure - Departure Date of Disposition Decision: 02/13/19 Time of Disposition Decision: 18:05 DIAGNOSIS: SBO (small bowel obstruction) Disposition: ADMITTED INPATIENT 09 Certified Medical Emergency: Emergent Condition: Stable Referrals and Follow-Ups: Ashvin Law MD [Primary Care Provider] - - Critical Care Note This patient required my direct & personal management of CC.: No Attestation - Physician/ OFELIA Attestation Patient care was provided by Advanced Practice Provider:: No The physician spent face to face time with patient:: Yes Advanced Practice Provider documentation review:: Supervising physician onsite and consulted in the evaluation and care of this patient. The physician did have a face to face encounter with the patient. This chart was documented by the indicated scribe, (Darrian Jerome, [place]) and accurately reflects the services I performed and decisions made by me, Rony Leedsma MD, as attested by the provider's signature.
--- NOTE | 2019-02-13 19:39 | HISTORY AND PHYSICAL ---
HISTORY OF PRESENT ILLNESS: A 73-year-old, white gentleman, a patient of Dr. Law, came to hospital for evaluation of abdominal pain, nausea, and vomiting. The patient claimed he had history of small-bowel obstruction in the past, and he was feeling the same way. The pain started this morning. The patient vomited 3 times. There was no hematemesis or fresh blood in the vomitus. The pain in his abdomen was cramping in nature. He did have some bloating and abdominal distention. The patient did have one bowel movement in the emergency room which was normal. There was no blood or melenic stool. The patient evaluated by ER physician. The patient had CT scan of the abdomen and pelvis done, which revealed high-grade small-bowel obstruction. The patient had diverticulitis and diverticular abscess and also cholecystectomy. The patient told to have significant scar tissue causing [place]'s and obstruction. The patient did have multiple hospitalizations for the same. He denied any typical chest pain, palpitation, orthopnea or PND. No unusual cough, expectoration, or hemoptysis. The patient does have urinary frequency, urgency, and at times hesitancy. Known case of BPH. No gross hematuria. Unquantified weight loss which the patient claimed voluntary. The patient is scheduled to have upper and lower GI endoscopy on February 22 for anemia. Arthritic pain in the knee. The patient does have neuropathic pain in the feet secondary to his diabetes. No heat or cold intolerance. No focal weakness. No further history available at this time. ALLERGIES: No known drug allergy. PAST MEDICAL HISTORY: Significant for diabetes mellitus. Coronary artery disease status post stent placement. Hypertension. Hyperlipidemia. History of diverticulitis and diverticular abscess requiring surgery. COPD. Mild ischemic cardiomyopathy. Frequent small bowel obstructions. Abdominal aortic aneurysm. Paroxysmal atrial fibrillation. PAST SURGICAL HISTORY: Patient had a colostomy and reversal due to diverticulitis and complication. Testicular abscess drained in 1996. Incarcerated hernia. Cholecystectomy. Perforation of the colon. SOCIAL HISTORY: The patient is . He quit smoking about 7 years ago. Denied alcohol or substance abuse. Fairly independent in activities of daily living. FAMILY HISTORY: Significant for coronary artery disease in mother. Strong family history of coronary artery disease in the family. Diabetes mellitus in grandmother and brother. Grandfather with pancreatic cancer. Colon cancer in grandmother and stroke in his aunt. REVIEW OF SYSTEMS: As per HPI. Otherwise unobtainable. CURRENT MEDICATIONS: Includes the patient is on Novolin 70/30, Norvasc, aspirin, Coreg, Zyrtec, Lasix, Lopid, glucagon, Avapro, multivitamin, Prilosec, Metamucil, Xarelto, Daliresp, Crestor, Serevent discus, Flomax, and Spiriva. PHYSICAL EXAMINATION: GENERAL: Elderly white gentleman lying in the bed in mild distress. VITAL SIGNS: Blood pressure 123/74, pulse 61, respirations 16, temperature 97.3 degrees. SKIN: Normal turgor. No rash or petechiae. HEENT: Head atraumatic, normocephalic. [place] conjunctivae. Anicteric sclerae. Extraocular muscle movement normal. Fundus cannot be penetrated. Good oral hygiene. No tonsillopharyngeal congestion or exudate. Ears and nose benign. NECK: Supple. No JVD, thyromegaly or lymphadenopathy. CHEST: Bilateral good air entry present. No rales. CARDIOVASCULAR: S1 and S2 heard with a 2/6 systolic murmur at the apex. ABDOMEN: Soft. Mild distention. Tenderness in the mid abdomen. No guarding or rigidity. Bowel sounds hypoactive. Patient does have multiple scars of previous surgeries. RECTAL: Exam deferred. EXTREMITIES: No cyanosis, clubbing. No acute DVT. Peripheral pulsation intact. SEAM TAPER MACHINE: Alert, awake. Able to move all 4 limbs. Answering questions fairly well. No acute vascular compromise. DIAGNOSTIC DATA: The patient's CT scan results reviewed. LABORATORY DATA: WBC count 9.01, hemoglobin 13.8, hematocrit 43.3, platelet count 180,000. His potassium was 5.8, BUN 40, creatinine 1.3. ASSESSMENT: The patient admitted with small-bowel obstruction. We will keep patient n.p.o. Offered him NG tube. Patient was reluctant and refusing. Importance of NG tube and risk of not having it done explained to the patient. The patient understood but so far declining. His other problem includes diabetes mellitus, hypertension, paroxysmal atrial fibrillation, coronary artery disease, mild hyperkalemia, acute kidney injury, hyperlipidemia. PLAN: Admit the patient. IV fluid. GI and DVT prophylaxis. Surgical consultation. Dr. Law will follow patient from tomorrow. Overall plan discussed at length with the patient and , and they are in agreement. cc: Zeus Quigley MD
--- NOTE | 2019-02-13 19:49 | GENERAL SURGERY CONSULTATION ---
DATE: 02/13/2019 ADMITTING DIAGNOSIS: Small-bowel obstruction. REQUESTING PHYSICIAN: Dr. Ledesma in the Emergency Department. REASON FOR CONSULTATION: Bowel obstruction. HISTORY OF PRESENT ILLNESS: A 73-year-old gentleman who has got a history of bowel obstruction presenting with abdominal pain starting this morning described as sharp pain. He says it is similar to his previous episodes of small bowel obstruction. He mostly reported epigastric pain. He was seen in emergency department, had a CT scan that showed a bowel obstruction. I was asked to weigh an opinion. He is currently being admitted by Dr. Quigley for Dr. Law. He is currently feeling a little bit better right now. PAST MEDICAL HISTORY: Includes 1. Coronary artery disease. 2. Hypertension. 3. Hypercholesterolemia. 4. History of diverticulosis. 5. Type 2 diabetes. 6. COPD. 7. Mild ischemic cardiomyopathy. 8. Frequent small-bowel obstruction. 9. History of AAA measuring 3.4 cm. 10. Proximal atrial fibrillation. PAST SURGICAL HISTORY: 1. Includes previous colectomy with colostomy secondary to diverticulitis. 2. Incisional hernia repair. 3. Open cholecystectomy. 4. Testicular abscess and drainage. 5. Adhesiolysis. 6. History of perforated colon. HOME MEDICATIONS: Reviewed. The patient has extensive list. Of note he is on Xarelto. ALLERGIES: None. FAMILY HISTORY: Reviewed patient, positive for coronary artery disease, [place]. SOCIAL HISTORY: . Former smoker. REVIEW OF SYSTEMS: A full 14 systems reviewed and negative as specified in HPI. PHYSICAL EXAMINATION: Vital Signs: Patient is currently afebrile. His vital signs are stable. General: No acute distress. Alert, interactive male looks stated age. HEENT: Normocephalic, atraumatic. Pupils equal, round, reactive to light. Mucous membranes moist. Oropharynx benign. Neck: Supple. Trachea midline. Cardiovascular: Regular rate and rhythm. Lungs: Grossly clear. Abdomen: Distended. Multiple surgical scars noted. No real tenderness to palpation on examination right now. No peritoneal signs. Extremities: Moves all extremities. Neurologic: Grossly intact. Skin: No signs of jaundice. Vascular: All extremities perfused. LABORATORY: White blood count is normal, hematocrit is normal, platelet count is normal. Potassium is 5.8, creatinine is 1.3. CT scan independently reviewed and radiology report reviewed looks like the bowel obstruction. ASSESSMENT AND PLAN: A 73-year-old with recurrent small-bowel obstruction. 1. Recurrent small bowel obstruction. This time like to manage him nonoperatively with conservative management. Will keep him NPO, may consider small bowel series in the near future given the fact he has had multiple bowel obstructions and it looks like he has fecalization in small bowel which may suggest a chronic stricture but will do that once he seems to improve his status overall. 2. Multiple medical comorbidities currently being managed by the hospitalist service. cc: Narendra Bey MD
[2019-02-13] MEDS ORDERED: ZOFRAN PO PRN (20:36)
[2019-02-13] MEDS: PROTONIX IV SCH (22:19)
[2019-02-13] MEDS: MORPHINE IV PRN (22:19)
[2019-02-13] MEDS: SODIUM CHLORIDE 0.9% INJ SCH (22:19)
[2019-02-14] MEDS: MORPHINE IV PRN ×2 (00:58→03:32)
[2019-02-14 06:29] LABS: BASO# 0.02 X1000 (0.0-0.2); BASO% 0.2 % (0.0-0.8); EOS# 0.16 X1000 (0.0-0.7); EOS% 1.7 % (0.0-10.0); HEMATOCRIT 40.8 % (42.0-52.0); HEMOGLOBIN 12.8 g/dL (14.0-18.0); IMM GRAN# 0.02 X1000 (0.0-0.04); IMM GRAN% 0.2 % (0.0-0.5); LYMPH# 0.79 X1000 (1.2-3.4); LYMPH% 8.5 % (20.5-51.1); MCH 26.7 PG (27-31); MCHC 31.4 g/dL (33-37); MCV 85.2 FL (81-99); MONO# 0.65 X1000 (0.11-0.59); MPV 11.6 FL (7.4-10.4); NEUT% 82.4 % (42.2-75.2); PLT 160 X1000 (130-400); RBC 4.79 XMIL (4.7-6.1); RDW 15.3 % (11.5-14.5); WBC 9.34 X1000 (4.8-10.8)
--- NOTE | 2019-02-14 06:34 | GENERAL SURGERY PROGRESS NOTE ---
DATE: 02/14/2019 SUBJECTIVE: Patient had a rough night with abdominal pain. OBJECTIVE: Vital Signs: Patient is currently afebrile. His vital signs are stable. General: No acute distress. HEENT: Normocephalic, atraumatic. Pupils equal, round, reactive to light. Mucous membranes moist. Oropharynx benign. Neck: Supple. Trachea midline. Cardiovascular: Regular rate and rhythm. Lungs: Grossly clear. Abdomen: Soft. No real tenderness but distended right now. Incisions noted. Extremities: Moves all extremities. Neurologic: Grossly intact. Skin: No signs of jaundice. Vascular: All extremities perfused. LABORATORY: Pending for this morning. IMAGING: Abdominal film pending for this morning. ASSESSMENT AND PLAN: A 73-year-old with recurrent partial small-bowel obstruction. Recurrent partial small bowel obstruction. At this time, we will continue to try to do nonoperative management. Ideally, the patient will allow us to place an NG tube, but he has refused previously. We will continue to monitor him and await return of bowel function. We will probably consider small bowel follow-through in the near future to see if there actually is a stricture because it looks like there potentially could be. Will change around his nausea medicine and his pain medicine. cc: MD Nelson Osullivan MD
[2019-02-14] MEDS: DILAUDID IV PRN ×3 (06:42→21:46)
[2019-02-14] MEDS: ZOFRAN IV PRN ×2 (06:42→13:54)
[2019-02-14 06:49] LABS: ALB/GLOB RATIO 1.4; ALBUMIN 4.2 g/dL (3.5-5.0); CALCIUM 9.2 mg/dL (8.8-10.2); CREATININE 1.3 mg/dL (0.7-1.2); MAGNESIUM 1.6 mg/dL (1.5-2.7); POTASSIUM 4.8 mmol/L (3.5-5.1); TOTAL BILIRUBIN 0.33 mg/dL (0.20-1.00); TOTAL PROTEIN 7.2 g/dL (6.3-8.3)
--- NOTE | 2019-02-14 08:30 | Diag Imaging Result Doc PS360 ---
EXAM: ABDOMEN FLAT/UPRIGHT 02/14/2019 HISTORY: sbo TECHNIQUE: Flat and upright abdomen three views COMMENT: There is stool in the rectosigmoid colon. The stomach is slightly distended with gas. There is a loop of apparent small bowel which is markedly distended in the left abdomen. This is worse than on 05/01/2018. IMPRESSION: Small bowel obstruction. Electronically signed by Clarence Melgar 02/14/2019 8:28 AM
--- NOTE | 2019-02-14 09:12 | PROGRESS NOTE ---
DATE: 02/14/2019 SUBJECTIVE: The patient had significant pain overnight, improved with Dilaudid, not responsive to morphine. He has had no flatus. OBJECTIVE: Vital signs: Afebrile, pulse 77, respirations 21, blood pressure 149/71, O2 saturation on room air 93%. Cardiovascular: Regular rate and rhythm with rare ectopy. Lungs: Clear. Abdomen: Very protuberant. Moderate distention. No bowel sounds. Tympanitic. Extremities: No calf tenderness, cords or edema. Neurologic: Nonfocal. LABORATORY DATA: White count 9.3, hemoglobin 12.8, platelets 160,000. Sodium 141, potassium 4.8, chloride 106, CO2 22, BUN 37, creatinine 1.3, glucose 223, calcium 9.2. LFTs normal. IMAGING: Flat and upright of the abdomen this morning reveals no change. There is stool in the rectosigmoid colon. The stomach is slightly distended with gas. A loop of small bowel markedly distended in the left abdomen. ASSESSMENT: 1. Small-bowel obstruction, recurrent. 2. Insulin-dependent diabetes mellitus. 3. Coronary artery disease. 4. Hypertension. 5. Hyperlipidemia. 6. Remote history of diverticulitis. 7. Chronic obstructive pulmonary disease. 8. Ischemic cardiomyopathy, mild. 9. Abdominal aortic aneurysm. 10. Paroxysmal atrial fibrillation. PLAN: Resume low-dose IV fluids. Continue bowel rest. The patient has been held on his home medications of Xarelto. We will monitor his heart rate. He is off his Coreg presently and we will give him medications for blood pressure as required IV. Otherwise, keep him n.p.o. He is declining NG tube again as he has done in the past. Surgery is following the patient. Keep him at bowel rest. cc: MD Nelson Kaur MD
[2019-02-14] MEDS: PROTONIX IV SCH (10:19)
[2019-02-14] MEDS: POTASSIUM CHLORIDE 10 MEQ in NS 1,000 ML IV SCH (10:19)
[2019-02-14] MEDS: HUMULIN R SUBQ SCH ×3 (11:36→21:55)
[2019-02-14] MEDS ORDERED: SODIUM CHLORIDE 0.9% INJ PRN (15:26)
[2019-02-14] MEDS: PHENERGAN IV PRN ×2 (15:41→21:46)
--- NOTE | 2019-02-14 19:25 | Diag Imaging Result Doc PS360 ---
CHEST/ABD TUBE PLACEMENT - 02/14/2019 6:43 PM INDICATION: ng tube placement COMPARISON: 7:32 AM FINDINGS: There is a new nasogastric tube in good position in the fundus of the stomach. IMPRESSION: Nasogastric tube in good position in the stomach. Electronically signed by Earnest Montero 02/14/2019 7:23 PM
[2019-02-15] MEDS: DILAUDID IV PRN ×2 (01:03→04:08)
[2019-02-15] MEDS: POTASSIUM CHLORIDE 10 MEQ in NS 1,000 ML IV SCH ×2 (06:49→08:50)
[2019-02-15] MEDS: HUMULIN R SUBQ SCH ×4 (07:12→21:41)
--- NOTE | 2019-02-15 07:23 | GENERAL SURGERY PROGRESS NOTE ---
DATE: 02/15/2019 SUBJECTIVE: Patient agreed to have an NG tube placed. They have a significant amount of output, at least 3 canisters now. He is feeling better. He has passed a little bit of gas. OBJECTIVE: Vital Signs: Patient is currently afebrile. His vital signs stable. General: No acute distress. HEENT: Normocephalic, atraumatic. Pupils equal, round, reactive to light. Mucous membranes moist. Oropharynx benign. Neck: Supple. Trachea midline. Cardiovascular: Regular rate and rhythm. Lungs: Grossly clear. Abdomen: Soft. Decreased distention. No tenderness at this time. Extremities: Moves all extremities. Neurologic: Grossly intact. Skin: No signs of jaundice. Vascular: All extremities perfused. LABORATORY: None this morning as of yet. ASSESSMENT AND PLAN: A 73-year-old gentleman with recurrent small-bowel obstruction. Recurrent small-bowel obstruction. At this time, he is showing some improvement. He did get an NG tube placed and I think this is going to help a lot. Would like to keep the NG tube in place for at least another 24 hours to see if we can continue to decompress him, but otherwise continue to monitor him closely. cc: MD Nelson Osullivan MD
[2019-02-15] MEDS: SODIUM CHLORIDE 0.9% INJ SCH (08:50)
[2019-02-15] MEDS: PROTONIX IV SCH (08:50)
[2019-02-15] MEDS: LOVENOX SUBQ SCH (08:51)
--- NOTE | 2019-02-15 20:04 | PROGRESS NOTE ---
DATE: 02/15/2019 SUBJECTIVE: Patient had more vomiting yesterday evening and did allow the NG tube placement, which was noted to be in good position by x-ray. He has tolerated that well and has had about 3 canisters full of output from the NG tube. He notes he has had some flatus and abdomen seems a little softer. He is sitting up in the chair. OBJECTIVE: Vital Signs: Temperature max 101.4 degrees. Temperature current 98 degrees. Pulse 64, respirations 20, blood pressure 124/60, O2 saturation room air 96%. NG tube in place. CV: Regular rate and rhythm. Lungs: Clear. Abdomen: Protuberant. Moderate distention. Mildly active bowel sounds. Extremities: No edema. Neurologic: Nonfocal. LABORATORY DATA: Reviewed from yesterday. ASSESSMENT: 1. Small bowel obstruction, recurring. 2. Insulin dependent diabetes mellitus. 3. Coronary artery disease. 4. Hypertension. 5. Hyperlipidemia. 6. Remote history of diverticulitis. 7. Chronic obstructive pulmonary disease. 8. Mild ischemic cardiomyopathy. 9. Abdominal aortic aneurysm. 10. Paroxysmal atrial fibrillation. PLAN: 1. We are holding his Xarelto and oral medications. 2. Continue the nasogastric tube. 3. Continue low dose intravenous fluids. Blood pressures and heart rate are good at this point. 4. We will continue prophylactic doses of Lovenox. 5. Repeat labs in the morning. Flat and upright of the abdomen seems to have seen some improvement since nasogastric tube placement. 6. If he spikes a fever, would consider antibiotic addition. For now, hold that. cc: MD Nelson Kaur MD
[2019-02-15] MEDS: PHENERGAN IV PRN (21:39)
[2019-02-16] MEDS: DILAUDID IV PRN (01:38)
[2019-02-16] MEDS: POTASSIUM CHLORIDE 10 MEQ in NS 1,000 ML IV SCH (06:37)
[2019-02-16] MEDS: HUMULIN R SUBQ SCH ×4 (06:37→21:36)
--- NOTE | 2019-02-16 07:03 | GENERAL SURGERY PROGRESS NOTE ---
DATE: 02/16/2019 SUBJECTIVE: Patient accidentally had his NG tube dislodged today, but he is passing gas. He is feeling better. OBJECTIVE: Vital Signs: Patient is currently afebrile. His vital signs are stable. General: No acute distress. HEENT: Normocephalic, atraumatic. Pupils equal, round, reactive to light. Mucous membranes moist. Oropharynx benign. Neck: Supple. Trachea midline. Cardiovascular: Regular rate and rhythm. Lungs: Grossly clear. Abdomen: Soft. Less distended, nontender. Bowel sounds auscultated. Extremities: Moves all extremities. Neurologic: Grossly intact. Skin: No signs of jaundice. Vascular: All extremities perfused. LABORATORY: None this morning as of yet. ASSESSMENT AND PLAN: A 73-year-old gentleman with resolving partial small bowel obstruction. Resolving partial small bowel obstruction. At this time, will start him on clear liquid diet. If he continues to improve, may consider small bowel series to see if there is actually a stricture causing chronic obstruction, but in the meantime will just continue current treatment. cc: MD Nelson Osullivan MD
[2019-02-16 07:45] LABS: BASO# 0.02 X1000 (0.0-0.2); BASO% 0.4 % (0.0-0.8); EOS# 0.23 X1000 (0.0-0.7); EOS% 4.8 % (0.0-10.0); HEMATOCRIT 37.8 % (42.0-52.0); HEMOGLOBIN 11.8 g/dL (14.0-18.0); LYMPH# 0.74 X1000 (1.2-3.4); LYMPH% 15.3 % (20.5-51.1); MCH 26.8 PG (27-31); MCHC 31.2 g/dL (33-37); MCV 85.9 FL (81-99); MONO% 14.5 % (1.7-9.3); MPV 11.5 FL (7.4-10.4); NEUT# 3.14 X1000 (1.4-6.5); PLT 138 X1000 (130-400); RDW 14.9 % (11.5-14.5); WBC 4.83 X1000 (4.8-10.8)
[2019-02-16 08:09] LABS: CREATININE 1.3 mg/dL (0.7-1.2); POTASSIUM 4.4 mmol/L (3.5-5.1)
--- NOTE | 2019-02-16 08:40 | Diag Imaging Result Doc PS360 ---
EXAM: ABDOMEN FLAT/UPRIGHT INDICATION: sbo TECHNIQUE: 3 views COMPARISON: 02/14/2019 FINDINGS: The NG tube has been removed during the interval. There is less distention of the stomach as compared to the previous study. The gas distended loop of bowel on the left side of the abdomen is again identified but is less distended. No large volume free abdominal gas is appreciated. IMPRESSION: Some interval improvement of gaseous distention of small bowel on the left side of the abdomen. Electronically signed by Ludwin Pacheco 02/16/2019 8:37 AM
[2019-02-16] MEDS: LOVENOX SUBQ SCH (09:31)
[2019-02-16] MEDS: PROTONIX IV SCH (09:31)
[2019-02-16] MEDS: SODIUM CHLORIDE 0.9% INJ SCH (09:31)
[2019-02-16] MEDS: PHENERGAN IV PRN (21:36)
--- NOTE | 2019-02-16 21:45 | PROGRESS NOTE ---
DATE: 02/16/2019 SUBJECTIVE: The patient is sitting up in a chair today. He is feeling better. He accidentally pulled out the NG tube earlier this morning, and Dr. Bey is okay with him leaving that out. He has had no nausea now. He has passed flatus, but he has had no bowel movement. Abdominal pain has improved. OBJECTIVE: Afebrile. Pulse 63, respirations 20, blood pressure 144/74, O2 saturation on room air 100%. CV: RRR. Lungs clear. Abdomen: Moderate distention but somewhat less than previous and it is softer. Active bowel sounds are noted.Extremities: No calf tenderness, cords or edema. Neurologic: Nonfocal. Cranial nerves intact. LABORATORY DATA: White count 4.8, hemoglobin 11.8, platelets 138,000. Sodium 142, potassium 4.4, chloride 104, CO2 is 24, BUN 41, creatinine 1.3, calcium 9.0. DIAGNOSTIC DATA: Flat and upright of the abdomen reveals improvement in gaseous distention of the small bowel on the left side of the abdomen. PLAN: He has been advanced to a clear liquid diet per Dr. Bey. Continue supportive care and leave the NG tube out. Reassess tomorrow. cc: MD Nelson Kaur MD
[2019-02-17] MEDS: HUMULIN R SUBQ SCH ×2 (06:14→11:34)
--- NOTE | 2019-02-17 09:10 | Diag Imaging Result Doc PS360 ---
ABDOMEN FLAT/UPRIGHT - 02/17/2019 INDICATION: sbo COMPARISON: 02/16/2019 FINDINGS: There are several scattered abnormally gas-distended loops of small bowel, slightly more extensive than on the prior exam. No significant colon or rectal gas. No free air. IMPRESSION: Slight worsening small bowel gas pattern suggesting small bowel obstruction. Electronically signed by Earnest Montero 02/17/2019 9:07 AM
[2019-02-17] MEDS: LOVENOX SUBQ SCH (09:50)
[2019-02-17 11:30] VITALS: BP 154/65
--- NOTE | 2019-02-17 13:31 | GENERAL SURGERY PROGRESS NOTE ---
DATE: 02/17/2019 SUBJECTIVE: Patient tolerated his clear liquids. He is having bowel movements. He seems to be doing okay. OBJECTIVE: Vital Signs: Patient is currently afebrile. His vital signs stable. General Exam: No acute distress. HEENT: Normocephalic, atraumatic. Pupils equal, round, reactive to light. Mucous membranes moist. Oropharynx benign. Neck: Supple. Trachea midline. Cardiovascular: Regular rate and rhythm. Lungs: Grossly clear. Abdomen: Soft, less distended, nontender. Extremities: Moves all extremities. Neurologic: Grossly intact. Skin: No signs of jaundice. Vascular: All extremities perfused. LABORATORY: None this morning as of yet. ASSESSMENT AND PLAN: A 73-year-old with resolving recurrence partial small bowel obstruction. Resolving partial small bowel obstruction. At this time, we will advance him to a full liquid diet. He seems to be doing okay. I would recommend likely getting a small-bowel follow-through as an outpatient to see if there is any actual stricture, but otherwise if he seems to do okay, I am okay with discharge later today but will defer to his primary care physician. cc: MD Nelson Osullivan MD
--- NOTE | 2019-02-17 19:59 | PROGRESS NOTE ---
DATE: 02/17/2019 SUBJECTIVE: Patient has done well during the day. He has had about 4 slightly loose bowel movements during the night. He has had no nausea or vomiting. No abdominal pain, feeling much better. He has been passing gas. He has been tolerating the regular diet he had for lunch. OBJECTIVE: Vital Signs: Afebrile. Vital signs stable. O2 saturation 98% room air. Cardiovascular: Regular rate and rhythm. Lungs: Clear. Abdomen: Less distended. Active bowel sounds. Extremities: No calf tenderness, cords or edema. Neurologic: Cranial nerves intact. IMAGING STUDIES: Flat and upright of the abdomen continues to show some evidence of small bowel obstruction. Read by radiologist as possibly being slightly worse than yesterday, which is converse to what we would think from his clinical picture. ASSESSMENT: 1. Small bowel obstruction, much improved, especially clinically. 2. Insulin-dependent diabetes mellitus. 3. Coronary artery disease. 4. Hypertension. 5. Hyperlipidemia. 6. Remote history of diverticulitis. 7. Chronic obstructive pulmonary disease. 8. Mild ischemic cardiomyopathy. 9. Abdominal aortic aneurysm. 10. Paroxysmal atrial fibrillation. PLAN: I spoke with Dr. Bey in great detail and he is in agreement. He thinks the patient can be discharged home to follow up in my office in 5 to 6 days. We will plan upper GI with small-bowel follow-through at that time. He has EGD and colonoscopy also scheduled with Dr. Edwards in the next two weeks. He will resume his home medications and he knows to come back to the ER should he worsen again. cc: MD Nelson Kaur MD
--- NOTE | 2019-03-21 09:12 | DISCHARGE SUMMARY ---
ADMISSION DATE: 02/13/2019 DISCHARGE DATE: 02/17/2019 DIAGNOSES: 1. Small bowel obstruction improving conservatively with NG tube and bowel rest. 2. Insulin-dependent diabetes mellitus. 3. Coronary artery disease. 4. Hypertension. 5. Hyperlipidemia. 6. Remote history of diverticulitis. 7. Chronic obstructive pulmonary disease. 8. Mild ischemic cardiomyopathy. 9. AAA. 10. Paroxysmal atrial fibrillation. PHOTO PRODUCER: 1. Dr. Narendra Bey. 2. General surgery. PROCEDURES: 1. CT scan abdomen and pelvis done on admission 02/13/2019 revealing high-grade small bowel obstruction. Abdominal x-ray done 02/14/2019 3 revealed small bowel obstruction. NG tube placement with confirmation of good position in the stomach on 02/14/2019. 2. Flat and upright of the abdomen done 02/16/2019 showed interval improvement in gaseous distention of small bowel. Flat and upright abdomen done 02/17/2019 revealing slight worsening small-bowel gas pattern suggesting small bowel obstruction. REASON FOR ADMISSION AND HOSPITAL COURSE: The patient is a 73-year-old white male followed in my medical practice. He has had small-bowel obstruction several occasions over the last few years. He has had multiple abdominal surgeries primarily related to diverticulitis remotely. Patient came in with small bowel obstruction. He was kept at bowel rest. NG tube was ultimately placed on 02/14 after patient initially refused it. He was covered with antibiotics intraorally off. He did not require antibiotics. He was kept off his Xarelto but placed on prophylactic doses of Lovenox for DVT prophylaxis. Dr. Bey saw the patient and recommended certain conservative measures. The patient defervesced over the next few days and by 02/17/2019 although his x-rays were showing some improvement he clinically was doing remarkably well, was eating and stooling well. By that time, it was felt he could be discharged home. He will need small bowel follow- through as an outpatient when he sees me in a week. He will follow up with Dr. Bey as well. DISCHARGE MEDICATIONS: 1. Lasix 20 mg p.o. b.i.d. 2. Zyrtec 10 mg p.o. daily. 3. Spiriva [place]-Hal[place] 1 puff daily. 4. Serevent Diskus 1 inhalation b.i.d. 5. Crestor 40 mg p.o. at bedtime. 6. Xarelto 20 mg p.o. at bedtime. 7. Coreg 6.25 mg p.o. b.i.d. 8. Aspirin 81 mg daily p.o.. 9. Omeprazole 20 mg p.o. daily. 10. Daliresp 500 mg p.o. daily. 11. Lopid 600 mg p.o. b.i.d. 12. Norvasc 5 mg p.o. daily. 13. Metamucil b.i.d. 14. Novolin 70/30 insulin 48 units subcutaneous q.a.m., 28 units subcutaneous q.p.m. 15. Avapro 300 mg p.o. daily. 16. Multivitamin 1 p.o. daily. 17. Flomax 0.4 mg p.o. at bedtime. LABS: During the hospitalization showed white count that was normal. Hemoglobin 11.8 at discharge, 13.8 on admission. Platelets normal. CMP was unremarkable except on admission. Potassium was high at 5.8 by discharge it was 4.4. Creatinine stable at 1.3. cc: MD Nelson Kaur MD Matthew L. Figh, MD
== END 2019-02-17 16:53 | disposition home or self-care (01) | DRG 390 ==
LOC: ED 12:58 → 3N 20:07
PROVIDERS: ADMIT Internal Medicine; ATTEND Family Medicine

== ENCOUNTER 2019-07-15 17:32 | Inpatient (IN) ==
[2019-07-15] MEDS ORDERED: NS 1,000 ML IV ONE ×2 (18:19→20:14)
[2019-07-15] MEDS ORDERED: ZOFRAN IV ONE (18:19)
[2019-07-15] MEDS ORDERED: DILAUDID IV ONE (18:19)
--- NOTE | 2019-07-15 18:28 | PROVIDER DOCUMENTATION ---
This chart was entered by Azra Rosario Scribe, acting as scribe for Freddie Musa MD. HPI-Abdominal Pain/GI Problem - General Source: patient - History of Present Illness-ABD Nature of Presenting Problems: pt is a 73 yr old male presenting with complaint of diffuse abdominal pain, bloating, nausea/vomiting and watery diarrhea. pt reports hx of small bowel obstruction x 5/6 with multiple abdominal surgeries including colostomy and reversal and ruptured diverticulum. pt admits concern for another obstruction. on exam pt refused a NG tube. Abdominal Pain Onset Location: reports: generalized abdomen Pain Radiation: reports: no radiation Quality of Pain: reports: fullness, pressure Severity in ED: reports: moderate Onset/Duration: reports: this morning Timing: reports: getting worse Activities at Onset: reports: light activity Exposure to sick contacts?: No Modifying Factors: improves with: nothing Associated Symptoms: reports: diarrhea (watery), nausea, vomiting. denies: chest pain, fever/chills, genitourinary problems, shortness of breath Last BM: this evening Dark Stools Present?: reports: none noticed Rectal Bleeding: reports: none # of Diarrhea Episodes: 3 Rectal Pain: reports: none # of Vomiting Episodes: 6 Emesis Description: reports: clear Bruising or Bleeding Gums?: No Similar Symptoms Previously?: Yes Recently seen or treated by another doctor?: No <Freddie Musa - Last Filed: 07/15/19 18:27> - History of Present Illness-ABD Nature of Presenting Problems: Patient is a 73 year old white male with history of divertulitis requiring surgery with subsequent recurrent bowel obstructions who presents with diffuse abdominal pain, abdominal distention, nausea, and vomting since 0930 today. Patient has received 5 abdominal/pelvic CTs in past year. patient seen initially by Dr. Musa who ordered Dilaudid and CT of abdomen with contrast. CT canceled . patient has elevated creatinine at this time. <Roc Garza - Last Filed: 07/15/19 19:52> - General Chief Complaint: N/V/D Stated Complaint: VOMITING,DIARRHEA Time Seen by Provider: 07/15/19 18:00 Allergies/Adverse Reactions: Patient Allergies Allergy/AdvReac Type Severity Reaction Status Date / Time No Known Allergies Allergy Verified 07/15/19 18:48 Home Medications: Home Medication List Medication Instructions Recorded Confirmed Last Taken Type Aspirin [Aspirin EC] 81 mg PO DAILY 10/13/16 07/15/19 07/15/19 History Carvedilol [Coreg] 6.25 mg PO BID 10/13/16 07/15/19 07/15/19 History Furosemide [Lasix] 20 mg PO BID 10/13/16 07/15/19 07/15/19 History Gemfibrozil 600 mg PO BID 10/13/16 07/15/19 07/15/19 History Rivaroxaban [Xarelto] 20 mg PO QHS 10/13/16 07/15/19 07/14/19 History Tiotropium [place] Inhaler 1 puff INH QHS 10/13/16 07/15/19 07/14/19 History [Spiriva] Irbesartan 300 mg PO QA 02/13/19 07/15/19 07/15/19 History Tamsulosin HCl 0.4 mg PO QHS 02/13/19 07/15/19 07/14/19 History Psyllium Husk [Metamucil] 0.4 gm PO BID 03/01/19 07/15/19 07/15/19 History Amlodipine Besylate [Norvasc] 5 mg PO DAILY 07/15/19 07/15/19 07/15/19 History Cetirizine HCl [Zyrtec] 10 mg PO DAILY 07/15/19 07/15/19 07/15/19 History Insulin NPH Hum/Reg Insulin Hm 48 units SQ HS 07/15/19 07/15/19 07/14/19 History [Novolin 70-30 100 Unit/ml Vial] Methocarbamol [Robaxin-750] 750 mg PO DAILY 07/15/19 07/15/19 07/15/19 History Multivitamin [Multivitamins] 1 ea PO DAILY 07/15/19 07/15/19 07/15/19 History Omeprazole [Prilosec] 20 mg PO DAILY 07/15/19 07/15/19 07/15/19 History Roflumilast [Daliresp] 500 mcg PO HS 07/15/19 07/15/19 07/14/19 History Rosuvastatin Calcium [Crestor] 40 mg PO HS 07/15/19 07/15/19 07/14/19 History Review of Systems - Adult - REVIEW OF SYSTEMS - ADULT Constitutional: denies: chills, fever Eyes: reports: no symptoms reported Ears, Nose, Mouth & Throat: reports: no symptoms reported Cardiovascular: denies: chest pain, palpitations, syncope Respiratory: denies: dyspnea on exertion, shortness of breath Gastrointestinal: reports: abdominal pain, diarrhea (watery stool), nausea, vomiting, other (flatulence) Genitourinary: reports: no symptoms reported Musculoskeletal: reports: no symptoms reported Integumentary: reports: no symptoms reported Neurological: denies: dizziness/vertigo, headache/migraines Psychiatric: reports: no symptoms reported Endocrine: reports: no symptoms reported Hematologic/Lymphatic: reports: no symptoms reported Allergic/Immunologic: reports: no symptoms reported All Other Systems: Reviewed and Negative <Freddie Musa - Last Filed: 07/15/19 18:27> Past History - Adult - PAST MEDICAL HISTORY-ADULT Review of Records: reports: Old Records Reviewed, Nursing Assessment Review, Medications Reviewed, Social history reviewed & non-contributory. Major Childhood Illnesses: reports: denies history Cardiovascular: reports: denies history Respiratory: reports: COPD Gastrointestinal: reports: obstruction (multiple small bowel obstructions(5-6)), other (diverticulitis) Obstetrical/Gynecological: reports: denies history Genitourinary: reports: denies history Musculoskeletal: reports: denies history Neurological: reports: denies history Psychiatric: reports: denies history Endocrine/Immune: reports: denies history Other Conditions: reports: denies history - PRIOR SURGERIES/PROCEDURES Surgical/Procedure History: reports: cholecystectomy, cardiac stent (3), hernia repair, bowel surgery (Small bowel obstruction) - IMMUNIZATION STATUS Childhood Immunizations: See Nurse Assessment Flu Vaccine: See Nurse Assessment - FAMILY HISTORY Family History: reviewed, not pertinent - SOCIAL HISTORY Smoking: quit greater than 1 year Substance Use: denies Living Situation: family <Freddie Musa - Last Filed: 07/15/19 18:27> Physical Exam-General - PHYSICAL EXAM-ADULT Initial Vital Signs Reviewed: Yes - CONSTITUTIONAL General Appearance: appears well, alert, no apparent distress, obese - EYES Eyes: PERRL/EOMI - HEAD, EARS, NOSE, MOUTH & THROAT HENMT: normocephalic/atraumatic, other (dry oral mucosa) - NECK Neck: non-tender, full range of motion, supple, normal inspection - RESPIRATORY Respiratory: chest non-tender, lungs clear, normal breath sounds, no respiratory distress, no accessory muscle use - CARDIOVASCULAR Cardiovascular: normal peripheral pulses, regular rate, rhythm, no edema - GASTROINTESTINAL (ABDOMEN) Abdominal Exam: abnormal bowel sounds (hypoactive), distended, tenderness (generalized tenderness), other - LYMPHATIC Lymphatic: no adenopathy - MUSCULOSKELETAL Back Exam: normal inspection, no CVA tenderness, no vertebral tenderness Extremity: normal range of motion, non-tender, normal gait, normal inspection - SKIN Integumentary: normal color, normal turgor, warm/dry - NEUROLOGIC Neurologic: grossly normal, no motor/sensory deficits - PSYCHIATRIC Psych/Mental Status: normal mood/affect <Freddie Musa - Last Filed: 07/15/19 18:27> Progress - PLAN OF CARE/RESULTS Progress/Plan/Lab Results: Vital Signs - 8 hr 07/15/19 17:44 07/15/19 17:56 Temperature 96 F L Pulse Rate 60 Respiratory Rate 20 Blood Pressure 111/59 O2 Sat by Pulse Oximetry 95 - CHANGE OF SHIFT REPORT (ED Provider) 1 Report Given and Care Transferred to:: Dr Garza Time of Transfer: 19:00 Items Pending: Labs, XRAY Results, CT/MRI Results <Freddie Musa - Last Filed: 07/15/19 18:27> - PLAN OF CARE/RESULTS Progress/Plan/Lab Results: Vital Signs - 8 hr 07/15/19 17:44 07/15/19 17:56 Temperature 96 F L Pulse Rate 60 Respiratory Rate 20 Blood Pressure 111/59 O2 Sat by Pulse Oximetry 95 Laboratory Results - last 24 hr 07/15/19 07/15/19 07/15/19 18:00 18:00 18:00 WBC 13.90 H RBC 5.47 Hgb 14.6 Hct 45.9 MCV 83.9 MCH 26.7 L MCHC 31.8 L RDW Std Deviation 14.7 H Plt Count 270 MPV 12.0 H Immature Gran % (Auto) 0.1 Neut % (Auto) 81.9 H Lymph % (Auto) 8.8 L Knox % (Auto) 8.0 Eos % (Auto) 0.8 Baso % (Auto) 0.4 Immature Gran # (Auto) 0.02 Neut # (Auto) 11.38 H Lymph # (Auto) 1.23 Knox # (Auto) 1.11 H Eos # (Auto) 0.11 Baso # (Auto) 0.05 Sodium 137 Potassium 5.5 H Chloride 95 L Carbon Dioxide 25 Anion Gap 17 BUN 47 H Creatinine 2.5 H Estimated GFR/1.73 m2 26 BUN/Creatinine Ratio 19 Glucose 261 H Calculated Osmolality 295 Calcium 10.8 H Total Bilirubin 0.47 AST 18 ALT 14 Alkaline Phosphatase 91 Total Protein 8.6 H Albumin 4.5 Globulin 4.1 Albumin/Globulin Ratio 1.1 Amylase Lipase 36 Plasma Lactate 2.4 H 07/15/19 18:00 WBC RBC Hgb Hct MCV MCH MCHC RDW Std Deviation Plt Count MPV Immature Gran % (Auto) Neut % (Auto) Lymph % (Auto) Knox % (Auto) Eos % (Auto) Baso % (Auto) Immature Gran # (Auto) Neut # (Auto) Lymph # (Auto) Knox # (Auto) Eos # (Auto) Baso # (Auto) Sodium Potassium Chloride Carbon Dioxide Anion Gap BUN Creatinine Estimated GFR/1.73 m2 BUN/Creatinine Ratio Glucose Calculated Osmolality Calcium Total Bilirubin AST ALT Alkaline Phosphatase Total Protein Albumin Globulin Albumin/Globulin Ratio Amylase 76 Lipase Plasma Lactate Orders Category Date Time Status Saline Loc DIRECTED Care 07/15/19 18:13 Active NPO Diet 07/15/19 18:13 Active ABDOMEN FLAT/UPRIGHT [RAD] Stat Exams 07/15/19 19:24 Ordered AMYLASE [CHEM] Stat Lab 07/15/19 18:00 Completed BLOOD CULTURE [BLDCUL] Stat Lab 07/15/19 18:00 Results CBC WITH ELECTRONIC DIFF [HEME] Stat Lab 07/15/19 18:00 Completed COMPREHENSIVE METABOLIC PANEL [CHEM] Stat Lab 07/15/19 18:00 Completed LACTATE, PLASMA [CHEM] Stat Lab 07/15/19 18:00 Completed LIPASE [CHEM] Stat Lab 07/15/19 18:00 Completed URINALYSIS W/POSS RFLX CULT [URINALYSIS] Stat Lab 07/15/19 18:13 Uncollected 0.9% Sodium Chloride Inj [Ns] 1,000 ml Med 07/15/19 18:19 Discontinued IV 999 mls/hr Hydromorphone [Dilaudid] Med 07/15/19 18:19 Discontinued 0.5 mg IV NOW ONE Ondansetron [Zofran] Med 07/15/19 18:19 Discontinued 4 mg IV NOW ONE EKG [EKG] Stat Ther 07/15/19 18:42 Ordered Result Diagrams: 07/15/19 18:00 07/15/19 18:00 - XRAY 1 XRAY Study: Abdomen, Pelvis XRAY Interpretation: small bowel obstruction - CONSULTS/PCP/HOSPITALIST Notification #1 *Consult/PCP/Hospitalist*: Dr. Lynn, hospitalist Time Discussed: 19:50 Consult Disposition: Admit <Roc Garza - Last Filed: 07/15/19 19:52> Departure <Freddie Musa - Last Filed: 07/15/19 18:27> - Departure Date of Disposition Decision: 07/15/19 Time of Disposition Decision: 19:51 Certified Medical Emergency: Emergent - Critical Care Note This patient required my direct & personal management of CC.: No <Roc Garza - Last Filed: 07/15/19 19:52> - Departure DIAGNOSIS: Small bowel obstruction Disposition: ADMITTED INPATIENT 09 Condition: Stable Referrals and Follow-Ups: Ashvin Law MD [Primary Care Provider] - Attestation - Physician/ OFELIA Attestation Patient care was provided by Advanced Practice Provider:: No The physician spent face to face time with patient:: Yes Advanced Practice Provider documentation review:: Supervising physician onsite and consulted in the evaluation and care of this patient. The physician did have a face to face encounter with the patient. <Roc Garza - Last Filed: 07/15/19 19:52> This chart was documented by the indicated scribe, (Azra Rosario Scribe) and accurately reflects the services I performed and decisions made by me, Freddie Musa MD, as attested by the provider's signature.
[2019-07-15 18:31] LABS: BASO# 0.05 X1000 (0.0-0.2); BASO% 0.4 % (0.0-0.8); EOS# 0.11 X1000 (0.0-0.7); EOS% 0.8 % (0.0-10.0); HEMATOCRIT 45.9 % (42.0-52.0); HEMOGLOBIN 14.6 g/dL (14.0-18.0); IMM GRAN# 0.02 X1000 (0.0-0.04); IMM GRAN% 0.1 % (0.0-0.5); LYMPH# 1.23 X1000 (1.2-3.4); LYMPH% 8.8 % (20.5-51.1); MCH 26.7 PG (27-31); MCHC 31.8 g/dL (33-37); MCV 83.9 FL (81-99); MONO# 1.11 X1000 (0.11-0.59); NEUT# 11.38 X1000 (1.4-6.5); NEUT% 81.9 % (42.2-75.2); PLT 270 X1000 (130-400); RBC 5.47 XMIL (4.7-6.1); RDW 14.7 % (11.5-14.5)
[2019-07-15 18:57] LABS: ALB/GLOB RATIO 1.1; ALBUMIN 4.5 g/dL (3.5-5.0); CALCIUM 10.8 mg/dL (8.8-10.2); CREATININE 2.5 mg/dL (0.7-1.2); POTASSIUM 5.5 mmol/L (3.5-5.1); TOTAL BILIRUBIN 0.47 mg/dL (0.20-1.00); TOTAL PROTEIN 8.6 g/dL (6.3-8.3)
--- NOTE | 2019-07-15 19:43 | Diag Imaging Result Doc PS360 ---
EXAM: ABDOMEN FLAT/UPRIGHT INDICATION: abdominal pain TECHNIQUE: 4 views COMPARISON: 02/17/2019 FINDINGS: There are several gas-distended loops of small bowel throughout the abdomen with air-fluid levels on the upright projection that is suspicious for small bowel obstruction. It is actually fairly similar to the previous radiograph and February 2019. No large volume free abdominal gas is appreciated. IMPRESSION: Multiple gas-distended loops of small bowel suspicious for small bowel obstruction. Electronically signed by Ludwin Pacheco 07/15/2019 7:41 PM
[2019-07-15] MEDS ORDERED: DILAUDID IV PRN (20:14)
[2019-07-15] MEDS: HUMALOG SUBQ SCH (21:00)
[2019-07-15 21:16] LABS: CHOLESTEROL 163 mg/dL (0-200); HDL 41 mg/dL (35-55); LDL 96 mg/dL; TRIGLYCERIDES 129 mg/dL (39-160); VLDL 26 mg/dL
[2019-07-15 21:17] LABS: HEMOGLOBIN A1C 8.5 % (4.8-6.0)
--- NOTE | 2019-07-15 21:40 | HISTORY AND PHYSICAL ---
CHIEF COMPLAINT: Abdominal pain, nausea and vomiting. HISTORY OF PRESENT ILLNESS: This is a very pleasant 73-year-old male who has a past medical history of multiple small bowel obstructions. He sees Dr. Ashvin Law outpatient. He began having nausea, vomiting, abdominal bloating and pain this morning. Said that this feels the same as when he has had small bowel obstructions in the past. He has had a history of colostomy with colostomy reversal related to diverticulitis and complications so he has had multiple abdominal surgeries related to the perforation of his colon. I believe that he said this does make the 7th small bowel obstruction. He has not had to have surgical intervention related to that at this time. X-ray does show a small bowel obstruction. His labs show that he is volume depleted. He will be admitted for further evaluation and treatment. 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 PREVIOUS SURGICAL HISTORY: Colostomy and reversal due to diverticulitis and complication, testicular abscess drained in 1996, incarcerated hernia, cholecystectomy and perforation of the colon. SOCIAL HISTORY: . Quit smoking around 8 years ago. Has a remote history of alcohol use. No illicit drugs. FAMILY HISTORY: Positive for coronary artery disease in mother and brothers. They have a strong family history of coronary artery disease. Diabetes mellitus in grandmother and brother. Grandfather I believe had pancreatic cancer. Colon cancer in a grandmother and stroke in his aunt. ALLERGIES: No known drug allergies. HOME MEDICATIONS: Norvasc 5 mg p.o. daily, aspirin 81 mg p.o. daily, carvedilol 6.25 mg p.o. b.i.d., Zyrtec 10 mg p.o. daily, furosemide 20 mg p.o. b.i.d., gemfibrozil 600 mg p.o. b.i.d., Novolin 70/30 of 48 units subcutaneous at bedtime, irbesartan 300 mg p.o. q.a.m., methocarbamol 750 mg p.o. daily, multivitamin 1 p.o. daily, omeprazole 20 mg p.o. daily, Metamucil 0.4 mg p.o. b.i.d., Xarelto 20 mg p.o. at bedtime, Daliresp 500 mcg p.o. at bedtime, Crestor 40 mg p.o. at bedtime, Flomax 0.4 mg p.o. at bedtime, Spiriva 1 puff inhalation at bedtime. REVIEW OF SYSTEMS: Fourteen-point review of systems conducted with the patient. Pertinent positives listed above in the HPI. All other systems reviewed and found to be negative. PHYSICAL EXAMINATION: VITAL SIGNS: Temperature 97.6, pulse 60, respirations 20, blood pressure 111/59, oxygen saturation 98% on room air. GENERAL: Pleasant 73-year-old male lying in the ER stretcher accompanied by his . She is very supportive. He is in no acute distress. HEENT: Head is atraumatic, normocephalic. Pupils equal, round, reactive to light. Extraocular eye movement is intact. Sclera is anicteric. Conjunctiva is pink. Oral mucosa is dry. NECK: Supple. No JVD. No thyromegaly. Trachea is midline. No cervical lymphadenopathy. CARDIAC: S1, S2 appreciated. Irregularly irregular. No murmurs, gallops or rubs. LUNGS: Clear to auscultation bilaterally. No rhonchi, wheezes or rales. Symmetric rise and fall with respirations. ABDOMEN: Somewhat tight and distended. Diffusely tender to palpation. Bowel sounds hypoactive all 4 quadrants. No pulsatile mass. No organomegaly. EXTREMITIES: No clubbing, cyanosis or edema. Two-plus pedal pulses bilaterally. GENITOURINARY: No bladder distention. Patient voids. Otherwise deferred. NEUROLOGICAL: Alert and oriented times 3. Cranial nerves 2 through 12 grossly intact. LABORATORY DATA: WBC 13.90. Hemoglobin 14.6. Hematocrit 45.9. Platelet count 270. Sodium 137. Potassium 5.5. Chloride 95. Carbon dioxide 25. BUN 47. Creatinine 2.5. Glucose 261. Plasma lactate 2.4. Abdominal x-ray shows multiple gas-distended loops of the small bowel suspicious of small bowel obstruction. ASSESSMENT: 1. Small bowel obstruction. 2. Hypertension. 3. Hyperlipidemia. 4. Diabetes mellitus type 2, now insulin dependent. 5. Acute kidney injury on chronic kidney disease. PLAN: Place patient on the medical floor. He will be followed by his primary care doctor tomorrow, Dr. Ashvin Law. Consult Surgery. Hopeful that this can be resolved without surgical intervention. We will continue pain medication and fluids on the floor. We will continue fluids. Recheck laboratory data. Continue home inhalers. We will hold all p.o. medications until tomorrow. We will defer to primary care when appropriate to restart home medications. He is normotensive to hypotensive at this time. Will not need his antihypertensives. Sliding scale insulin with fingerstick blood sugars. Patient is mildly hyperkalemic. We will recheck after hydration and treat accordingly. Further recommendations per patient clinical course. Dictated by ALLIE Zavaleta for Matthew Lynn MD I have performed a face to face diagnostic evaluation. Labs/Xrays- reviewed. Exam- Chest - clear, CV- regular, Abd- diffuse tenderness. A/P- SBO- Admit, NPO, pain control. Surgery consult. Dr. Lynn cc: ALLIE Zavaleta MD [facility]
[2019-07-15 21:44] LABS: URINE SOURCE CLEAN CATCH
[2019-07-15 21:47] LABS: BILIRUBIN URINE SMALL (NEGATIVE); BLOOD URINE MODERATE (NEGATIVE); COLOR YELLOW; GLUCOSE URINE TRACE mg/dL (NEGATIVE); KETONE URINE NEGATIVE (NEGATIVE); LEUKOCYTES URINE MODERATE (NEGATIVE); NITRITE URINE NEGATIVE (NEGATIVE); PH URINE 5.5; PROTEIN URINE 200 mg/dL (NEGATIVE); SP GRAVITY URINE 1.026; TURBIDITY URINE TURBID (CLEAR); UROBILINOGEN URINE 2 mg/dL (NORMAL)
[2019-07-15 21:50] LABS: UR EPITHELIAL CELLS >10 /HPF (<10); URINE BACTERIA NEGATIVE /HPF; URINE RBC 20-40 /HPF (<10)
[2019-07-15 21:57] LABS: URINE YEAST PRESENT
[2019-07-15] MEDS ORDERED: ROCEPHIN 1 GM in NS 50 ML IV ONE (22:25)
[2019-07-15] MEDS: DALIRESP PO SCH (23:18)
[2019-07-15] MEDS: SPIRIVA INH SCH (23:19)
[2019-07-15] MEDS: ZOFRAN IV PRN (23:31)
[2019-07-16] MEDS: DILAUDID IV PRN ×5 (01:54→21:34)
[2019-07-16] MEDS: ZOFRAN IV PRN (05:16)
--- NOTE | 2019-07-16 05:55 | EKG Report ---
Test Performed on : 07/15/2019 7:13:45 PM Test Reason : ABNORMAL RHYTHM Blood Pressure : / mmHG Vent. Rate : 058 BPM Atrial Rate : 058 BPM P-R Int : 150 ms QRS Dur : 144 ms QT Int : 462 ms P-R-T Axes : 004 031 106 degrees QTc Int : 453 ms Sinus bradycardia. Left bundle branch block Abnormal ECG When compared with ECG of 27-DEC-2016 19:22, premature ventricular complexes. are no longer present Left bundle branch block is now present Unconfirmed Result
[2019-07-16] MEDS: HUMALOG SUBQ SCH ×4 (06:23→21:08)
--- NOTE | 2019-07-16 07:41 | GENERAL SURGERY CONSULTATION ---
DATE: 07/16/2019 CHIEF COMPLAINT: Abdominal distention, nausea, vomiting. HISTORY: This is a pleasant 73-year-old white male who yesterday developed abdominal pain, abdominal distention, nausea, vomiting. He has had recent upper respiratory infection with cough. He has a history of colon resection back in the 90s with a colostomy. He has had incarcerated hernia repair in the distant past by Dr. Li. He had another cecal perforation in the early 1999s. He has had multiple episodes of partial small bowel obstruction since that time and very similar to what he is experiencing now. He has been able to always resolve his SBO with conservative therapy. PAST MEDICAL HISTORY: His past history is also pertinent for insulin-dependent diabetes, ischemic heart disease status post stent placement, hypertension, hyperlipidemia, COPD, small aortic aneurysm, chronic atrial fibrillation with anticoagulation. PAST SURGICAL HISTORY: Previous surgery includes colectomy, colostomy and colostomy reversal, hernia repair, cholecystectomy, testicular abscess. MEDICATIONS: Listed. He is on Xarelto. ALLERGIES: He has no known drug allergies. SOCIAL HISTORY: He is . He does not smoke. Remote history of alcohol use. No illicit medications. FAMILY HISTORY: Pertinent for coronary artery disease. REVIEW OF SYSTEMS: Pertinent for recent cough and upper respiratory infection. Also, his abdominal distention, nausea, vomiting. Otherwise, the other subsystem reviews are negative. PHYSICAL EXAMINATION: Vital Signs: He is afebrile. Heart rate 80, blood pressure 111/51. Neck: No cervical adenopathy. Lungs: Sound clear. Heart: Regular rate and rhythm. Abdomen: Distended, tympanitic, but nontender to palpation. Abdomen is quiet. No hernia palpated. Extremities: No peripheral edema. Neurologic: He is awake and alert. LABORATORY DATA: White count yesterday was 13,900, hemoglobin 14.6. Potassium 5.2, BUN 47, creatinine 2.5. X-ray showed a distended small bowel. ASSESSMENT: Small bowel obstruction with intravascular volume depletion. PLAN: Would be to hydrate him, rest his bowel in hopes that his obstruction will resolve with conservative therapy. We will follow along. cc: MD Ashvin Avelar MD
[2019-07-16 10:06] LABS: CALCIUM 9.4 mg/dL (8.8-10.2); CREATININE 2.5 mg/dL (0.7-1.2); POTASSIUM 5.1 mmol/L (3.5-5.1)
--- NOTE | 2019-07-16 10:39 | PROGRESS NOTE ---
DATE: 07/16/2019 SUBJECTIVE: The patient was just admitted today for a small bowel obstruction. I do want to continue his antibiotics. He has had this before but he has also been sick with a cough that has been persistent. He has taken Augmentin for about 10 days now. Was scheduled to see Dr. Law again on Wednesday when he developed a small bowel obstruction. The patient smoked for over 45 years, quit about 8 years ago with his tobacco but has never had a CT scan for evaluation of his lungs, which is recommended by the [place] Preventive Services Task Force recommendations. OBJECTIVE: Blood pressure 157/90, respirations 16, pulse 86, temperature 98.5 degrees Fahrenheit. HEENT: Normocephalic. EOMs intact. PERRLA. Throat clear. Lungs have rales in the bases bilaterally. Heart: Regular rate and rhythm without murmurs, gallops, or friction rubs. Abdomen: Distended with high-pitched sounds. X-ray showed multiple gas distended loops of small bowel, suspicious for small bowel obstruction. Neurologic Examination: Intact grossly. Patient is coughing a good bit. He says that he has not had symptoms of influenza but his cough has persisted. There may be some COPD with this because of his smoking history. ASSESSMENT: 1. Small bowel obstruction. 2. At least bronchitis. 3. Greater than 45 pack years smoking history and has not been stopped for 15 years yet. PLAN: We will continue Rocephin and the patient will have an NG tube. I will go ahead and do a CT scan of his chest, abdomen, and pelvis. Surgery is already involved. cc: MD Ashvin Cantu Jr, MD
--- NOTE | 2019-07-16 11:47 | Diag Imaging Result Doc PS360 ---
EXAM: CT THORAX/ABD/PELVIS W/O CON INDICATION: sbo, persistent cough, >45 pk yrs smoking TECHNIQUE: This exam was performed using automated exposure control, adjustment of mA or kV according to patient size, and/or use of iterative reconstruction technique. COMPARISON: CT abdomen and pelvis dated 02/13/2019 FINDINGS: CHEST: There is a catheter via granuloma near the right lung apex. There is platelike atelectasis involving the lingula and anterior aspect of the left lower lobe at the base. There is minimal atelectasis at the right lung base. The lungs are grossly clear, otherwise. There is no pleural fluid collection and no pneumothorax. There is a calcified mediastinal lymph node indicating prior granulomatous disease. There is no significant mediastinal or hilar lymphadenopathy, otherwise. There is no cardiomegaly. There is extensive coronary artery calcification. There is no evidence of acute osseous abnormality. ABDOMEN/PELVIS: There has been a prior cholecystectomy. The liver, spleen, pancreas, and adrenal glands are unremarkable. There are multiple stable renal cysts bilaterally. The kidneys are unremarkable, otherwise. The urinary bladder appears normal. There are multiple distended loops of small bowel containing gas and fluid throughout the abdomen suspicious for small bowel obstruction. I cannot identify an obvious transition point. However, the distal small bowel is largely decompressed. There is a normal amount stool in the colon. The colon is nondistended. No bowel wall thickening or free abdominal gas is identified. The stomach is unremarkable. There is no evidence of acute osseous abnormality. IMPRESSION: 1.Platelike atelectasis involving the lingula and anterior aspect of the left lower lobe at the base and trace atelectasis on the right. 2.Multiple distended loops of small bowel suspicious for obstruction as described. Electronically signed by Ludwin Pacheco 07/16/2019 11:44 AM
[2019-07-16] MEDS: ZITHROMAX 500 MG/NS 500 MG/250 ML IVPB IV SCH (11:56)
[2019-07-16] MEDS: NS 1,000 ML IV SCH ×2 (11:58→21:03)
--- NOTE | 2019-07-16 14:09 | Diag Imaging Result Doc PS360 ---
EXAM: CHEST-PORTABLE INDICATION: ng tube placement TECHNIQUE: One view COMPARISON: 02/14/2019 FINDINGS: There is a newly placed NG tube. The tip projects a few centimeters below the diaphragm and is assumed to be in the lumen of the stomach in the expected position. There are distended loops of small bowel in the upper abdomen related to known bowel obstruction seen on CT. The lungs are overexposed due to focus on the NG tube. IMPRESSION: Newly placed NG tube identified in the expected position. Electronically signed by Ludwin Pacheco 07/16/2019 2:06 PM
[2019-07-16] MEDS: SPIRIVA INH SCH (19:16)
[2019-07-16] MEDS: ROCEPHIN 1 GM in NS 50 ML IV SCH (21:03)
[2019-07-16] MEDS: DALIRESP PO SCH (21:03)
[2019-07-17] MEDS: DILAUDID IV PRN ×6 (00:54→21:30)
[2019-07-17] MEDS: SPIRIVA INH SCH ×2 (03:13→23:01)
[2019-07-17] MEDS: HUMALOG SUBQ SCH ×3 (06:17→16:02)
[2019-07-17] MEDS: ROCEPHIN 1 GM in NS 50 ML IV SCH ×2 (08:17→21:28)
--- NOTE | 2019-07-17 10:52 | Diag Imaging Result Doc PS360 ---
EXAM: FLAT/UPRIGHT ABD/1 VIEW CHEST 07/17/2019 HISTORY: sbo TECHNIQUE: One upright abdomen with PA chest COMMENT: There is an NG tube with its tip in the stomach. There is some apparent atelectasis in the left lung base which was also present on 07/16/2019. There is a small bowel loop on the left side of the abdomen which is markedly distended with gas. This was also present on the previous study. There is gas and stool present in the colon including the rectum. No evidence of organomegaly or mass is present. The stomach is not distended. IMPRESSION: Partial small bowel obstruction. Left lower lobe atelectasis. Electronically signed by Clarence Melgar 07/17/2019 10:50 AM
[2019-07-17] MEDS: ZITHROMAX 500 MG/NS 500 MG/250 ML IVPB IV SCH (10:58)
--- NOTE | 2019-07-17 11:32 | GENERAL SURGERY PROGRESS NOTE ---
DATE: 07/17/2019 Mr. Chiu says he feels better. He said his belly feels better. He has passed a little flatus. He is afebrile, heart rate 78, blood pressure 130/70. Intake was recorded as 1034, output 1200. He had 300 mL out his NG tube. It was bilious in nature. His x-ray shows more air in the colon. His BUN has gone from 47 to 62. His creatinine is still at 2.5. ASSESSMENT: Improvement in his partial small bowel obstruction. I think he may need some more intravenous fluids to perfuse his kidneys better and hopefully reduce his BUN and creatinine. PLAN: We will continue with NG suction for now. cc: MD Ashvin Avelar MD
[2019-07-17] MEDS ORDERED: NS NEB INH SCH (13:00)
--- NOTE | 2019-07-17 13:38 | PROGRESS NOTE ---
DATE: 07/17/2019 SUBJECTIVE: The patient is having some cough. Denies shortness of breath. Did have mild flatulence earlier. No bowel movement. NG tube remains in place. OBJECTIVE: Vital Signs: Afebrile, pulse 77, respirations 18, blood pressure 150/84, O2 saturation on room air 97%. Cardiovascular: Regular rate, bradycardia. Lungs: Coarse breath sounds, cannot rule out rare wheeze. Abdomen: Very protuberant. Hypoactive bowel sounds in moderate distention. Extremities: No calf tenderness, cords or edema. Neurologic: Cranial nerves 2-12 are intact. Nonfocal. LABORATORY DATA: Reviewed from yesterday revealing potassium 5.1, BUN 62, creatinine 2.5. Urinalysis showed some pyuria which is asymptomatic. Clean-catch urine culture so far no growth. Blood cultures times 2 at 48 hours. IMAGING: Flat and upright of the abdomen with 1 view of the chest this morning reveals left lower lobe atelectasis, partial small bowel obstruction. ASSESSMENT: 1. Partial small bowel obstruction. 2. Bronchitis with left lower lobe atelectasis. 3. Chronic obstructive pulmonary disease. 4. Dehydration/prerenal azotemia. 5. Insulin-dependent diabetes mellitus. 6. Coronary artery disease. 7. Hypertension. 8. Hyperlipidemia. 9. Remote history of diverticulitis. 10. Mild ischemic cardiomyopathy. 11. Abdominal aortic aneurysm. 12. Paroxysmal atrial fibrillation, currently off his Xarelto with the NG tube in place. PLAN: Continue NG tube as per Dr. Collins. He is on IV Rocephin. We will follow his urine culture due to the pyuria. Repeat BMP in the morning. He is receiving IV fluids per Dr. Collins. His antihypertensives are being held currently as is his Lasix. Continue oxygen as required. Add Xopenex nebulizer treatments. Continue Rocephin. Continue Spiriva. cc: Ashvin Law MD
[2019-07-17] MEDS: NS 1,000 ML IV SCH ×2 (13:41→21:28)
[2019-07-17] MEDS: XOPENEX NEB INH SCH ×2 (16:01→23:02)
[2019-07-17] MEDS: DALIRESP PO SCH (21:29)
[2019-07-18] MEDS: DILAUDID IV PRN ×3 (00:41→22:27)
[2019-07-18] MEDS: HUMALOG SUBQ SCH ×5 (01:58→22:23)
[2019-07-18] MEDS: NS 1,000 ML IV SCH (04:34)
--- NOTE | 2019-07-18 07:23 | EKG Report ---
Test Performed on : 07/18/2019 06:14:20 AM Test Reason : abnormal telemetry strip Blood Pressure : / mmHG Vent. Rate : 075 BPM Atrial Rate : 075 BPM P-R Int : 128 ms QRS Dur : 162 ms QT Int : 428 ms P-R-T Axes : 119 -03 107 degrees QTc Int : 477 ms Sinus rhythm. with frequent and consecutive premature ventricular complexes. Left bundle branch block Abnormal ECG When compared with ECG of 15-JUL-2019 19:13, (Unconfirmed) premature ventricular complexes. are now present Confirmed by Isaac Mcmillan MD ([id number]) on 07/19/2019 12:14:46 PM
--- NOTE | 2019-07-18 07:31 | Diag Imaging Result Doc PS360 ---
EXAM: FLAT/UPRIGHT ABD/1 VIEW CHEST INDICATION: sbo TECHNIQUE: 4 views COMPARISON: 07/17/2019 FINDINGS: There are persistent gas distended loops of small bowel mainly on the left side of the abdomen. The degree of distention appears to have slightly improved. No large volume free abdominal gas is appreciated. The abdomen is stable, otherwise. There has been interval removal of the NG tube. Left basilar atelectasis is stable. No new consolidation is identified. Cardiac silhouette is stable. IMPRESSION: 1.Slight improvement of gaseous distention of small bowel. 2.Stable chest. Electronically signed by Ludwin Pacheco 07/18/2019 7:29 AM
[2019-07-18] MEDS: XOPENEX NEB INH SCH ×3 (08:15→23:04)
[2019-07-18 08:33] LABS: CALCIUM 8.9 mg/dL (8.8-10.2); CREATININE 1.2 mg/dL (0.7-1.2); POTASSIUM 4.6 mmol/L (3.5-5.1)
[2019-07-18] MEDS: ROCEPHIN 1 GM in NS 50 ML IV SCH ×2 (09:06→22:04)
[2019-07-18] MEDS: ZITHROMAX 500 MG/NS 500 MG/250 ML IVPB IV SCH (11:30)
--- NOTE | 2019-07-18 13:44 | PROGRESS NOTE ---
DATE: 07/18/2019 SUBJECTIVE: The patient accidentally pulled out his NG tube. He has had flatus x3 and 2 small bowel movements. He is feeling better overall. OBJECTIVE: Afebrile, pulse 76, respirations 16, blood pressure 155/75, O2 saturation on room air is 95%. CV: RRR. Lungs: Clear to auscultation. No wheezes. Abdomen: Protuberant. Mild distention. More active bowel sounds today are noted. Extremities: No calf tenderness, cords, or edema. Neurologic: Nonfocal. Cranial nerves intact. BMP is normalizing with BUN down to 29, creatinine 1.2, potassium 4.6. Urine culture is growing out some yeast. Blood cultures are negative. Flat and upright of the abdomen, and 1 view of the chest today shows some improvement in gaseous distention of small bowel, stable chest. ASSESSMENT: 1. Partial small bowel obstruction. 2. Bronchitis with left lower lobe atelectasis, improving. 3. Chronic obstructive pulmonary disease. 4. Prerenal azotemia, improved with hydration per Dr. Collins. 5. Insulin-dependent diabetes mellitus. 6. Coronary artery disease. 7. Hypertension. 8. Hyperlipidemia. 9. Remote history of diverticulitis. 10. Mild ischemic cardiomyopathy. 11. Abdominal aortic aneurysm. 12. Paroxysmal atrial fibrillation, currently off of his Xarelto. PLAN: He remains on IV Rocephin. He is on Spiriva and Xopenex nebulizer treatments. He is conservatively improving with his SBO. If he continues on his present course, might be able to be discharged tomorrow if he continues to improve. cc: Ashvin Law MD
[2019-07-18] MEDS ORDERED: NS 1,000 ML IV SCH (14:46)
--- NOTE | 2019-07-18 15:03 | GENERAL SURGERY PROGRESS NOTE ---
DATE: 07/18/2019 SUBJECTIVE: Mr. Chiu is doing better. His NG tube is out. He has passed flatus. His bowels have moved a couple of times. He says his abdomen feels back to normal. His BUN has now fallen down to 29, creatinine down to 1.2, so we are getting back to his usual baseline BUN and creatinine. PLAN: Plan is to start him on clear liquids, and will reduce his IV rate since his BUN and creatinine are better. cc: MD Ashvin Avelar MD
[2019-07-18] MEDS: DALIRESP PO SCH (22:04)
[2019-07-18] MEDS: SPIRIVA INH SCH (23:04)
[2019-07-19] MEDS: HUMALOG SUBQ SCH ×3 (06:11→15:53)
[2019-07-19] MEDS ORDERED: LASIX IV ONE (06:55)
[2019-07-19] MEDS ORDERED: KLOR-CON PO ONE (06:56)
[2019-07-19] MEDS: ROCEPHIN 1 GM in NS 50 ML IV SCH (08:43)
[2019-07-19] MEDS: XOPENEX NEB INH SCH ×2 (09:18→14:53)
[2019-07-19] MEDS: ZITHROMAX 500 MG/NS 500 MG/250 ML IVPB IV SCH (12:07)
[2019-07-19] MEDS ORDERED: SALINE LOCK IV FLUID XX ONE (13:29)
[2019-07-19 15:18] VITALS: BP 152/67
--- NOTE | 2019-07-19 17:36 | GENERAL SURGERY PROGRESS NOTE ---
DATE: 07/19/2019 Mr. Chiu says he is doing fine. He has had flatus and had a bowel movement. He wants to go home and that is certainly okay with me. He will return if he has problems. cc: MD Ashvin Avelar MD
--- NOTE | 2019-07-19 19:25 | PROGRESS NOTE ---
DATE: 07/19/2019 SUBJECTIVE: The patient is doing better today. He is sitting up in a chair. He had a little swelling in his arm from his IV and maybe a little swelling in his legs. He has been off his Lasix so received some IV Lasix this morning, and that has cleared. He has been diuresing well. He is tolerating clear liquids, and he has had 4 small bowel movements and been passing flatus and feels much better. OBJECTIVE: Vital Signs: T-max 99.5 degrees. Vital signs stable. CV: Regular rate and rhythm. Lungs: Clear. Trace lower extremity edema. No calf tenderness or cords. Abdomen: Protuberant. Active bowel sounds. No major distention. O2 saturation on room air 92%. ASSESSMENT: 1. Partial small bowel obstruction, resolved with conservative treatment. 2. Bronchitis with left lower lobe atelectasis, improved. 3. Chronic obstructive pulmonary disease. 4. Prerenal azotemia, resolved with hydration. 5. Insulin-dependent diabetes mellitus. 6. Coronary artery disease. 7. Hypertension. 8. Hyperlipidemia. 9. Remote history of diverticulitis. 10. Mild ischemic cardiomyopathy. 11. Abdominal aortic aneurysm, being monitored. 12. Paroxysmal atrial fibrillation. PLAN: The patient has received Rocephin during the hospitalization. We will discharge him home back on his home medications. I am not going to leave him on any antibiotics at this point. If he has further cough, he will let me know. He will follow up my office in 1 week. If he has recurrent bowel difficulties, he will get back in here to the ER. He will resume his home medications including his Xarelto. cc: Ashvin Law MD
--- NOTE | 2019-08-06 16:47 | DISCHARGE SUMMARY ---
ADMISSION DATE: 07/16/2019 DISCHARGE DATE: 07/19/2019 DIAGNOSES: 1. Partial small bowel obstructive, resolved with conservative treatment. 2. Bronchitis with left lower lobe atelectasis, improving. 3. Chronic obstructive pulmonary disease. 4. Prerenal azotemia, resolved with hydration. 5. Insulin-dependent diabetes mellitus. 6. Coronary artery disease. 7. Hypertension. 8. Hyperlipidemia. 9. Remote history of diverticulitis. 10. Mild ischemic cardiomyopathy. 11. Abdominal aortic aneurysm, being monitored by Surgery. 12. Paroxysmal atrial fibrillation. PROCEDURES: 1. Flat and upright of the abdomen done on admission on 07/15 revealing multiple gas distended loops of small bowel suspicious for small bowel obstruction. 2. CT thorax, abdomen, and pelvis without contrast revealed plate-like atelectasis involving the lingula and anterior aspect of the left lower lobe at the base and trace atelectasis on the right. Multiple distended loops of small bowel suspicious for obstruction. 3. Chest x-ray done 07/16/2019 revealed newly placed NG tube in the expected position. 4. On 07/17/2019 flat and upright of the abdomen with 1 view of the chest revealing partial small bowel obstruction, left lower lobe atelectasis. 5. Flat and upright of the abdomen with one view of the chest 07/18/2019 revealing slight improvement of gaseous distention of the small bowel with stable chest. CONSULTANTS: Dr. Merrill Collins, general surgery. REASON FOR ADMISSION AND HOSPITAL COURSE: The patient is a 73-year-old white male followed in my medical practice. He has had frequent small bowel obstructions in the past, thought to be related to adhesions related to prior colostomy and colostomy reversal and multiple abdominal surgeries related to perforation of colon associated with diverticulitis. The patient came in with abdominal pain, nausea, vomiting, and was volume depleted. He was hydrated well. He had some bronchitis prior to admission and was started on Rocephin for that, and he was mildly hyperkalemic on admission, but that resolved with hydration. Dr. Collins saw the patient in consultation, and NG tube was ultimately placed after findings were noted of small bowel obstruction per CT abdomen and pelvis. The patient was maintained on DuoNeb, and by 07/18 the patient had improved. He accidentally pulled out his NG tube. He had some flatus and 2 small bowel movements and was overall starting to feel better. He remained on the IV Rocephin, and he was on Xopenex nebulizer treatments at that point and Spiriva and began to feel better. By 07/19, the patient was sitting up in a chair, and he had a little swelling in his arm related to IV fluids, and he was given some Lasix that seemed to clear that situation. He has been passing flatus and tolerating clear liquids and had 4 small bowel movements. It was felt that he could be discharged home to follow up with me within 1 week. DISCHARGE MEDICATIONS: 1. Lasix 20 mg p.o. b.i.d. 2. Spiriva 1 puff daily. 3. Xarelto 20 mg p.o. at bedtime. 4. Coreg 6.25 mg p.o. b.i.d. 5. Aspirin 81 mg p.o. daily. 6. Lopid 600 mg p.o. b.i.d. 7. Avapro 300 mg p.o. daily. 8. Flomax 0.4 mg p.o. at bedtime. 9. Metamucil 0.4 g p.o. b.i.d. 10. Zyrtec 10 mg p.o. daily. 11. Novolin 70/30 insulin 48 units subcu at bedtime and I believe 28 units subcu q.a.m.; although that was left off of his list, he would need to take it. 12. Robaxin 750 mg p.o. daily. 13. Multivitamin 1 p.o. daily. 14. Prilosec 20 mg p.o. daily. 15. Daliresp 500 mcg p.o. at bedtime. 16. Crestor 40 mg p.o. at bedtime. 17. Norvasc 5 mg p.o. daily. cc: Ashvin Law MD
== END 2019-07-19 18:30 | disposition home or self-care (01) | DRG 389 ==
LOC: ED 17:32 → 4N 07-16 00:37 → SUATTDRO 07-16 00:37
PROVIDERS: ADMIT Family Medicine; ATTEND Family Medicine

== ENCOUNTER 2019-08-24 23:59 | Inpatient (IN) ==
[2019-08-25 00:46] LABS: BASO# 0.02 X1000 (0.0-0.2); BASO% 0.3 % (0.0-0.8); EOS# 0.13 X1000 (0.0-0.7); EOS% 1.6 % (0.0-10.0); HEMATOCRIT 36.5 % (42.0-52.0); HEMOGLOBIN 11.4 g/dL (14.0-18.0); IMM GRAN# 0.02 X1000 (0.0-0.04); IMM GRAN% 0.3 % (0.0-0.5); LYMPH# 1.35 X1000 (1.2-3.4); LYMPH% 17.1 % (20.5-51.1); MCH 26.3 PG (27-31); MCHC 31.2 g/dL (33-37); MCV 84.1 FL (81-99); MONO# 0.79 X1000 (0.11-0.59); MPV 10.9 FL (7.4-10.4); NEUT# 5.58 X1000 (1.4-6.5); NEUT% 70.7 % (42.2-75.2); PLT 176 X1000 (130-400); RBC 4.34 XMIL (4.7-6.1); WBC 7.89 X1000 (4.8-10.8)
[2019-08-25] MEDS ORDERED: DILAUDID IV ONE ×2 (00:58→04:52)
[2019-08-25] MEDS ORDERED: ZOFRAN IV ONE (00:58)
[2019-08-25 01:12] LABS: ALB/GLOB RATIO 1.6; ALBUMIN 4.1 g/dL (3.5-5.0); CALCIUM 9.3 mg/dL (8.8-10.2); CREATININE 1.2 mg/dL (0.7-1.2); POTASSIUM 4.5 mmol/L (3.5-5.1); TOTAL BILIRUBIN 0.35 mg/dL (0.20-1.00); TOTAL PROTEIN 6.7 g/dL (6.3-8.3)
[2019-08-25 01:41] LABS: URINE SOURCE CLEAN CATCH
[2019-08-25 02:07] LABS: BILIRUBIN URINE NEGATIVE (NEGATIVE); BLOOD URINE TRACE (NEGATIVE); COLOR YELLOW; GLUCOSE URINE NEGATIVE (NEGATIVE); KETONE URINE NEGATIVE (NEGATIVE); LEUKOCYTES URINE NEGATIVE (NEGATIVE); NITRITE URINE NEGATIVE (NEGATIVE); PROTEIN URINE 70 mg/dL (NEGATIVE); SP GRAVITY URINE 1.017; TURBIDITY URINE CLEAR (CLEAR); UR EPITHELIAL CELLS <10 /HPF (<10); URINE BACTERIA NEGATIVE /HPF; URINE RBC <10 /HPF (<10); URINE WBC <10 /HPF (<10); UROBILINOGEN URINE NORMAL (NORMAL)
--- NOTE | 2019-08-25 04:50 | PROVIDER DOCUMENTATION ---
This chart was entered by Azra Rosario Scribe, acting as scribe for Jose Adams MD. HPI-Abdominal Pain/GI Problem - General Chief Complaint: Abdominal Pain Stated Complaint: abd pain/possible sbo Time Seen by Provider: 08/25/19 00:18 Source: patient Allergies/Adverse Reactions: Patient Allergies Allergy/AdvReac Type Severity Reaction Status Date / Time No Known Allergies Allergy Verified 08/17/19 12:58 Home Medications: Home Medication List Medication Instructions Recorded Confirmed Last Taken Type Aspirin [Aspirin EC] 81 mg PO DAILY 10/13/16 08/25/19 07/15/19 History Carvedilol [Coreg] 6.25 mg PO BID 10/13/16 08/25/19 07/15/19 History Furosemide [Lasix] 20 mg PO EVERY OTHER DAY 10/13/16 08/25/19 07/15/19 History Gemfibrozil 600 mg PO BID 10/13/16 08/25/19 07/15/19 History Rivaroxaban [Xarelto] 20 mg PO QHS 10/13/16 08/25/19 07/14/19 History Tiotropium [place] Inhaler 1 puff INH QHS 10/13/16 08/17/19 07/14/19 History [Spiriva] Tamsulosin HCl 0.4 mg PO QHS 02/13/19 08/17/19 07/14/19 History Psyllium Husk [Metamucil] 0.4 gm PO BID 03/01/19 08/25/19 07/15/19 History Amlodipine Besylate [Norvasc] 10 mg PO DAILY 07/15/19 08/25/19 07/15/19 History Cetirizine HCl [Zyrtec] 10 mg PO DAILY 07/15/19 08/25/19 07/15/19 History Insulin NPH Hum/Reg Insulin Hm 32 units SQ HS 07/15/19 08/25/19 07/14/19 History [Novolin 70-30 100 Unit/ml Vial] Multivitamin [Multivitamins] 1 ea PO DAILY 07/15/19 08/25/19 07/15/19 History Omeprazole [Prilosec] 20 mg PO DAILY 07/15/19 08/25/19 07/15/19 History Roflumilast [Daliresp] 500 mcg PO HS 07/15/19 08/17/19 07/14/19 History Rosuvastatin Calcium [Crestor] 40 mg PO HS 07/15/19 08/17/19 07/14/19 History - History of Present Illness-ABD Nature of Presenting Problems: pt is a 73 yr old male presenting with severe abdominal pain and watery diarrhea x 4 days. pt admits hospital admission 1 week ago, was discharged home 5 days ago after a brain bleed. pt reports pain and diarrhea 1 day after returning home. pt admits hx of small bowel obstruction, last was 07/2019, pt is followed by Dr Najera for same. pt denies fever/chills. admits nausea, no vomiting, pt last diarrhea stool was early AM, none since and pain is increasing Abdominal Pain Onset Location: reports: generalized abdomen Pain Radiation: reports: no radiation Quality of Pain: reports: cramping, fullness, pressure, sharp Severity in ED: reports: severe Onset/Duration: reports: 4 days ago Timing: reports: changing over time, getting worse Activities at Onset: reports: rest Exposure to sick contacts?: Yes Modifying Factors: improves with: nothing Associated Symptoms: reports: constipation, diarrhea, loss of appetite, nausea. denies: fever/chills, vomiting Last BM: 24 hours ago Dark Stools Present?: reports: none noticed Rectal Bleeding: reports: none Rectal Pain: reports: none Emesis Description: reports: none Bruising or Bleeding Gums?: No Similar Symptoms Previously?: Yes Recently seen or treated by another doctor?: Yes Review of Systems - Adult - REVIEW OF SYSTEMS - ADULT Constitutional: denies: chills, fever Eyes: reports: no symptoms reported Ears, Nose, Mouth & Throat: reports: no symptoms reported Cardiovascular: reports: no symptoms reported Respiratory: reports: no symptoms reported Gastrointestinal: reports: abdominal pain, constipation, diarrhea (watery), nausea, poor appetite. denies: rectal bleeding, vomiting Genitourinary: denies: dysuria, frequency, flank pain Musculoskeletal: denies: back pain, joint pain Integumentary: reports: no symptoms reported Neurological: denies: dizziness/vertigo, headache/migraines Psychiatric: reports: no symptoms reported Endocrine: reports: no symptoms reported Hematologic/Lymphatic: reports: no symptoms reported Allergic/Immunologic: reports: no symptoms reported All Other Systems: Reviewed and Negative Past History - Adult - PAST MEDICAL HISTORY-ADULT Review of Records: reports: Old Records Reviewed, Nursing Assessment Review, Medications Reviewed, Social history reviewed & non-contributory. Major Childhood Illnesses: reports: denies history Cardiovascular: reports: denies history Respiratory: reports: COPD Gastrointestinal: reports: obstruction, other (diverticulitis) Obstetrical/Gynecological: reports: denies history Genitourinary: reports: denies history Musculoskeletal: reports: denies history Neurological: reports: denies history Psychiatric: reports: denies history Endocrine/Immune: reports: denies history Other Conditions: reports: denies history - PRIOR SURGERIES/PROCEDURES Surgical/Procedure History: reports: cholecystectomy, cardiac stent (3), hernia repair, bowel surgery (Small bowel obstruction) - IMMUNIZATION STATUS Childhood Immunizations: See Nurse Assessment Flu Vaccine: See Nurse Assessment - FAMILY HISTORY Family History: reviewed, not pertinent - SOCIAL HISTORY Smoking: denies Substance Use: denies Living Situation: family Physical Exam-General - PHYSICAL EXAM-ADULT Initial Vital Signs Reviewed: Yes - CONSTITUTIONAL General Appearance: alert, mild distress, obese - EYES Eyes: PERRL/EOMI - HEAD, EARS, NOSE, MOUTH & THROAT HENMT: normocephalic/atraumatic, moist mucous membranes, normal ENT inspection - NECK Neck: non-tender, full range of motion, supple, normal inspection - RESPIRATORY Respiratory: chest non-tender, lungs clear, normal breath sounds - CARDIOVASCULAR Cardiovascular: normal peripheral pulses, regular rate, rhythm, no edema - GASTROINTESTINAL (ABDOMEN) Abdominal Exam: abnormal bowel sounds (increased tympanic RUQ), distended, other (multiple abdominal surgical scars) - LYMPHATIC Lymphatic: no adenopathy - MUSCULOSKELETAL Back Exam: normal inspection Extremity: normal range of motion, non-tender, normal gait, normal inspection - SKIN Integumentary: normal color, normal turgor, warm/dry - NEUROLOGIC Neurologic: grossly normal, no motor/sensory deficits - PSYCHIATRIC Psych/Mental Status: normal mood/affect Progress - PLAN OF CARE/RESULTS Progress/Plan/Lab Results: Vital Signs - 8 hr 08/25/19 00:17 Temperature 98.9 F Pulse Rate 86 Respiratory Rate 20 O2 Sat by Pulse Oximetry 97 Laboratory Results - last 24 hr 08/25/19 00:29 WBC 7.89 RBC 4.34 L Hgb 11.4 L Hct 36.5 L MCV 84.1 MCH 26.3 L MCHC 31.2 L RDW Std Deviation 15.0 H Plt Count 176 MPV 10.9 H Immature Gran % (Auto) 0.3 Neut % (Auto) 70.7 Lymph % (Auto) 17.1 L [place] % (Auto) 10.0 H Eos % (Auto) 1.6 Baso % (Auto) 0.3 Immature Gran # (Auto) 0.02 Neut # (Auto) 5.58 Lymph # (Auto) 1.35 [place] # (Auto) 0.79 H Eos # (Auto) 0.13 Baso # (Auto) 0.02 Orders Category Date Time Status CT ABD/PELVIS W/IV CONT ONLY [CT] Stat Exams 08/25/19 00:18 Ordered CBC WITH ELECTRONIC DIFF [HEME] Stat Lab 08/25/19 00:29 Completed COMPREHENSIVE METABOLIC PANEL [CHEM] Stat Lab 08/25/19 00:29 Received URINALYSIS W/POSS RFLX CULT [URINALYSIS] Stat Lab 08/25/19 00:18 Uncollected Result Diagrams: 08/25/19 00:29 08/25/19 00:29 - CONSULTS/PCP/HOSPITALIST Notification #1 *Consult/PCP/Hospitalist*: Dr Bey Time Discussed: 04:00 Consult Disposition: Will see in ED, Admit #2 Consult: Dr Lynn Time Discussed: 04:00 Consult Disposition: Will see in ED, Admit Departure - Departure Date of Disposition Decision: 08/25/19 Time of Disposition Decision: 04:48 DIAGNOSIS: Small bowel obstruction, Abdominal pain Disposition: ADMITTED INPATIENT 09 Certified Medical Emergency: Emergent Condition: Fair - Critical Care Note This patient required my direct & personal management of CC.: No Attestation - Physician/ OFELIA Attestation Patient care was provided by Advanced Practice Provider:: No The physician spent face to face time with patient:: Yes Advanced Practice Provider documentation review:: Supervising physician onsite and consulted in the evaluation and care of this patient. The physician did have a face to face encounter with the patient. This chart was documented by the indicated scribe, (Azra Rosario, [employer]) and accurately reflects the services I performed and decisions made by me, Jose Adams MD, as attested by the provider's signature.
[2019-08-25] MEDS ORDERED: ZOFRAN IV PRN (05:07)
--- NOTE | 2019-08-25 05:39 | HISTORY AND PHYSICAL ---
PRIMARY CARE PROVIDER: Dr. Law. CHIEF COMPLAINT: Abdominal pain and nausea. HISTORY OF PRESENTING ILLNESS: A 73-year-old male with history of multiple small-bowel obstructions, diabetes mellitus type 2, hypertension, atrial fibrillation, and recent intracranial bleed, who is currently off of Xarelto. He had presented to the emergency department with complaint of abdominal pain for the past several days. He states that he did not have any bowel movements, and he was nauseated. The patient was seen in the ED. He had imaging done which did show the possibility of small bowel obstruction. His case was discussed with General Surgery who recommended admission for further management. At the time of my examination, patient denied any headache, fever, chills, hemoptysis, melena or weight changes, but complained of abdominal pain and nausea. PAST MEDICAL HISTORY: Includes diabetes mellitus type 2, hypertension, chronic atrial fibrillation, intracranial bleed, coronary artery disease, VT, COPD, hyperlipidemia, and history of small bowel obstructions. PAST SURGICAL HISTORY: Abdominal surgery, hernia repair, cholecystectomy, and coronary stent. ALLERGIES: No known drug allergies. CURRENT MEDICATIONS: 1. Amlodipine 10 mg p.o. daily. 2. Aspirin 81 mg p.o. daily. 3. Carvedilol 6.25 mg p.o. b.i.d. 4. Lasix 20 mg every other day. 5. Gemfibrozil 600 mg p.o. b.i.d. 6. Novolin 70/30 32 units subcutaneous at bedtime. 7. Omeprazole 20 mg p.o. daily. 8. Xarelto 20 mg p.o. at bedtime. 9. Crestor 40 mg p.o. at bedtime. 10. Tamsulosin 0.4 mg p.o. at bedtime. SOCIAL HISTORY: He is a former smoker. No history of alcohol or illicit drug use. FAMILY HISTORY: Positive for coronary artery disease in mother. REVIEW OF SYSTEMS: A 14 point Review of Systems as listed in HPI. Other systems negative. PHYSICAL EXAMINATION: GENERAL: Cooperative, friendly male. He is resting more comfortably now. VITAL SIGNS: Temperature 98.9 degrees, pulse 86, respirations 20, and blood pressure 150/90. HEENT: Atraumatic and normocephalic. Extraocular movements intact. PERRLA. NECK: No masses. CHEST: Clear to auscultation. CARDIOVASCULAR: Irregular. ABDOMEN: The abdomen is firm with diffuse tenderness. EXTREMITIES: Trace edema. NEUROLOGIC: He is awake, alert, and oriented x3. : No bladder distention. SKIN: Warm. LABORATORIES AND STUDIES: WBC 7.89, hemoglobin 11.4, hematocrit 36.5, and platelets 176,000. Sodium 135, potassium 4.5, chloride 102, CO2 is 20, BUN is 22, creatinine is 1.2, and glucose is 177. ASSESSMENT: A 73-year-old male with a history of diabetes mellitus type 2, hypertension, chronic atrial fibrillation, and recent intracranial bleed, who had presented to emergency department with complaint of abdominal pain and nausea. He was seen in the ED. He had imaging done which did show a small bowel obstruction. Subsequently, he will require admission for further management. 1. Suspected small-bowel obstruction. 2. Recent intracranial bleed, currently off of Xarelto. 3. Diabetes mellitus type 2. 4. Chronic atrial fibrillation. 5. Hypertension. PLAN: 1. We will admit patient to medical-surgical floor. 2. We will keep patient NPO. Continue with antiemetics and pain control. 3. We will have patient stay off of Xarelto. 4. General Surgery was already consulted. 5. Monitor blood glucose. Place patient on sliding scale insulin regimen. 6. Continue to monitor patient on telemetry. 7. Monitor blood pressure. Resume antihypertensive agent. 8. We will put patient on DVT prophylaxis with SCD's. 9. We will continue to follow and reassess, make further recommendation based on patient's clinical course. cc: MD Ashvin Melton MD
--- NOTE | 2019-08-25 05:56 | HISTORY AND PHYSICAL ---
PRIMARY CARE PROVIDER: Dr. Law. CHIEF COMPLAINT: Abdominal pain and nausea. HISTORY OF PRESENTING ILLNESS: A 73-year-old male with a history of diabetes mellitus type 2, hypertension, multiple small bowel obstructions, and recent intracranial bleed who is off Xarelto. He had presented to the emergency department with several days history of having abdominal pain. The patient states that he was nauseated during this time, and did not feel well. He was seen in the ED. He had imaging done which did show a small bowel obstruction. His case was discussed with General Surgery who recommended admission for further treatment. At the time of my examination, patient denied any headache, fever, chills, chest pain, shortness of breath, hemoptysis, or weight changes, but complained of abdominal pain and nausea. PAST MEDICAL HISTORY: Include diabetes mellitus type 2, hypertension, atrial fibrillation, intracranial bleed, coronary artery disease, SD, COPD, hyperlipidemia, and multiple small bowel obstructions. PAST SURGICAL HISTORY: Abdominal surgery, hernia repair, cholecystectomy, and coronary stent. ALLERGIES: No known drug allergies. CURRENT MEDICATIONS: 1. Amlodipine 10 mg p.o. daily. 2. Aspirin 81 mg p.o. daily. 3. Carvedilol 6.25 mg p.o. b.i.d. 4. Lasix 20 mg every other day. 5. Gemfibrozil 600 mg p.o. b.i.d. 6. Novolin 70/30 32 units subcutaneous at bedtime. 7. Omeprazole 20 mg p.o. daily. 8. Xarelto 20 mg p.o. at bedtime. 9. Tamsulosin 0.4 mg p.o. at bedtime. SOCIAL HISTORY: He is a former smoker. No history of alcohol or illicit drug use. FAMILY HISTORY: Positive for coronary disease in his mother. REVIEW OF SYSTEMS: Fourteen point review of systems as listed in HPI. Other systems negative. PHYSICAL EXAMINATION: GENERAL: Cooperative friendly male. He is resting more comfortably now. VITAL SIGNS: Temperature 98.9 degrees, pulse 86, respirations 20, and blood pressure 150/90. HEENT: Atraumatic, normocephalic. Extraocular movements intact. PERRLA. NECK: Supple. CHEST: Clear to auscultation. CARDIOVASCULAR: Irregular. ABDOMEN: Firm. Diffuse tenderness. EXTREMITIES: No edema. NEUROLOGIC: He is awake, alert, and oriented x3. : No bladder distention. SKIN: Warm. LABORATORIES AND STUDIES: Sodium 135, potassium 4.5, chloride 102, CO2 20, BUN is 22, and creatinine is 1.2. WBC 7.89, hemoglobin 11.4, hematocrit 36.5, and platelets 176,000. ASSESSMENT: A 73-year-old male with a history of multiple small-bowel obstructions in the past, recent intracranial bleed, currently off Xarelto, atrial fibrillation, hypertension, and diabetes mellitus type 2, who had presented to the emergency department with several days history of having abdominal pain. He was seen in the ED. He had imaging done which did raise the suspicion of small bowel obstruction. Subsequently, he will require admission for further management. 1. Small bowel obstruction. 2. Recent intracranial bleed off Xarelto now. 3. Diabetes mellitus type 2. 4. Chronic atrial fibrillation. 5. Hypertension. PLAN: 1. We will admit patient to medical-surgical floor. 2. We will keep patient NPO, pain control, and antiemetics as needed. 3. General Surgery was already consulted. 4. The patient to remain off Xarelto for now. 5. We will monitor blood glucose, and place patient on sliding scale insulin regimen. 6. Continue to monitor patient on telemetry. 7. Monitor blood pressure. Resume antihypertensive agent. 8. We will put patient on DVT prophylaxis with SCD's. 9. We will continue to follow, reassess, and make further recommendation based on patient's clinical course. cc: MD Ashvin Melton MD
[2019-08-25] MEDS: NS 1,000 ML IV SCH ×2 (06:02→18:26)
--- NOTE | 2019-08-25 06:07 | GENERAL SURGERY CONSULTATION ---
DATE: 08/25/2019 REQUESTING PHYSICIAN: ER. REASON FOR CONSULTATION: Bowel obstruction. HISTORY OF PRESENT ILLNESS: A 73-year-old gentleman who has a history of multiple abdominal surgeries who was even in the hospital last month for a bowel obstruction presenting now with nausea and vomiting. He was seen in the ER, and had a CT scan that showed enteritis. Between his last admissions, he did have a brain bleed and was treated at [facility]. I have been asked to weigh an opinion on his bowel obstruction. He is feeling a little bit better. He is not sick enough to the stomach that he wants an NG tube. PAST MEDICAL HISTORY: Diabetes mellitus type 2. Coronary artery disease. Hypertension. Hyperlipidemia. Diverticulitis. Diverticulosis. COPD. Mild ischemic cardiomyopathy. Frequent bowel obstruction. AAA. Proximal atrial fibrillation on chronic anticoagulation. Recent brain bleed. PAST SURGICAL HISTORY: Includes colostomy and reversal. Testicular abscess. Incarcerated hernia. Cholecystectomy. Perforation of the colon. SOCIAL HISTORY: Former smoker. FAMILY HISTORY: Positive for coronary artery disease. ALLERGIES: None known. HOME MEDICATIONS: Reviewed. REVIEW OF SYSTEMS: A full 14 systems reviewed, and negative except as specified in HPI. PHYSICAL EXAMINATION: Vital Signs: Patient is currently afebrile. His vital signs are stable. General: No acute distress. HEENT: Normocephalic, atraumatic. Pupils equal, round, and reactive to light. Mucous membranes moist. Oropharynx benign. Neck: Supple. Trachea midline. Cardiovascular: Regular rate and rhythm. Lungs: Grossly clear. Abdomen: Soft. Distended. Nontender. Extremities: Moves all extremities. Neurologic: Grossly intact. Skin: No signs of jaundice. Vascular: All extremities perfused. LABORATORY: Reviewed. Hematocrit 36, white count 7, and platelet count 176,000. Remainder of labs reviewed. CT scan independently reviewed and Radiology report reviewed. ASSESSMENT AND PLAN: A 73-year-old gentleman with bowel obstruction enteritis. Bowel obstruction enteritis. At this time, we will admit to the hospitalist versus Dr. Law and we will resuscitate him. We will continue to monitor him. He may need a small bowel series, but we will continue to see how he does. Hopefully, we can avoid an operation. cc: MD Ashvin Osullivan MD
--- NOTE | 2019-08-25 08:10 | Diag Imaging Result Doc PS360 ---
EXAM: CT ABD/PELVIS W/IV CONT ONLY 08/25/2019 HISTORY: abdo pain TECHNIQUE: This exam was performed using automated exposure control, adjustment of mA or kV according to patient size, and/or use of iterative reconstruction technique. COMMENT: The current examination is compared with the previous study of 07/16/2019. Atelectatic changes in the lingula and right lower lobe are stable or improved since the previous study. There is minimal platelike atelectasis in the posterior costophrenic sulcus of the left lower lobe. There are calcifications in the abdominal aorta and its branches with noncalcified plaque formation as well posteriorly. There is dilatation of the infrarenal abdominal aorta to a maximum AP diameter which in of 3.4 cm. This has not changed significantly since the previous study. There are multiple cysts in both kidneys. There are numerous granulomata in the spleen. The adrenal glands are not enlarged. The pancreas is normal in appearance. There has been cholecystectomy. There is a tiny cyst in the anterior right hepatic lobe on image 41. There is stool and gas in the colon without evidence of dilatation. There is some dilatation of small bowel loops primarily in the mid jejunum. There is fecalization of contents in the distal small bowel. There is no clearly identifiable transitional zone. The degree of dilatation of the small bowel is somewhat improved since the previous study. There is more gas and stool in the ascending colon than on the previous examination. The appendix is normal in appearance. Pelvis: There is some gas and stool in the rectosigmoid colon without evidence of dilatation. The urinary bladder is not distended. There is no evidence of free fluid or significant adenopathy. The regional skeleton is intact. IMPRESSION: Slightly improved dilatation of small bowel. This may represent enteritis. No clearly defined point of obstruction is present. Other nonacute findings as described above. Electronically signed by Clarence Melgar 08/25/2019 8:08 AM
[2019-08-25] MEDS: DILAUDID IV PRN ×4 (10:39→22:32)
[2019-08-25] MEDS ORDERED: DUONEB (A & A) INH PRN (13:15)
[2019-08-25] MEDS: HUMULIN R SUBQ SCH ×2 (18:16→20:54)
[2019-08-25] MEDS: COREG PO SCH (20:13)
[2019-08-25] MEDS: LOPID PO SCH (20:13)
[2019-08-25] MEDS: SEREVENT DISKUS INH SCH (20:37)
[2019-08-25] MEDS: SPIRIVA INH SCH (21:58)
[2019-08-26] MEDS: DILAUDID IV PRN ×6 (02:20→23:07)
[2019-08-26] MEDS: HUMULIN R SUBQ SCH ×4 (06:56→20:26)
[2019-08-26 07:58] LABS: BASO# 0.02 X1000 (0.0-0.2); BASO% 0.3 % (0.0-0.8); EOS# 0.15 X1000 (0.0-0.7); EOS% 2.6 % (0.0-10.0); HEMATOCRIT 34.7 % (42.0-52.0); HEMOGLOBIN 10.7 g/dL (14.0-18.0); LYMPH# 1.31 X1000 (1.2-3.4); LYMPH% 22.3 % (20.5-51.1); MCH 26.3 PG (27-31); MCHC 30.8 g/dL (33-37); MCV 85.3 FL (81-99); MONO# 0.57 X1000 (0.11-0.59); MONO% 9.7 % (1.7-9.3); MPV 11.1 FL (7.4-10.4); NEUT# 3.83 X1000 (1.4-6.5); NEUT% 65.1 % (42.2-75.2); PLT 160 X1000 (130-400); RBC 4.07 XMIL (4.7-6.1); RDW 14.8 % (11.5-14.5); WBC 5.88 X1000 (4.8-10.8)
[2019-08-26 08:18] LABS: CALCIUM 9.3 mg/dL (8.8-10.2); CREATININE 1.3 mg/dL (0.7-1.2); POTASSIUM 4.7 mmol/L (3.5-5.1)
[2019-08-26] MEDS: SEREVENT DISKUS INH SCH (08:45)
[2019-08-26] MEDS: SPIRIVA INH SCH (08:50)
[2019-08-26] MEDS: ALBUTEROL NEB INH SCH ×3 (08:51→22:07)
[2019-08-26] MEDS: ZYRTEC PO SCH (10:12)
[2019-08-26] MEDS: NORVASC PO SCH (10:12)
[2019-08-26] MEDS: PRILOSEC PO SCH (10:12)
[2019-08-26] MEDS: LOPID PO SCH ×2 (10:12→20:27)
[2019-08-26] MEDS: COREG PO SCH ×2 (10:12→20:27)
--- NOTE | 2019-08-26 11:22 | PROGRESS NOTE ---
DATE: 08/26/2019 VITAL SIGNS: Stable with temperature 98.1 degrees, heart rate 64, respiration 18, blood pressure 172/81, a little improved from yesterday. Oxygen saturation 98% on room air. He has been passing some gas and was seen this morning by Dr. Andrade, who started some clear liquids. A CBC this morning revealed hemoglobin 10.7, hematocrit 34.7, white blood count 5800 with 65% neutrophils. Sodium was 136, potassium 4.7, BUN 19, creatinine 1.3, glucose 138. The patient is feeling better. There is history of recent head bleed on Xarelto, which has been discontinued. His Xarelto was for atrial fibrillation. He continues to have irregular heart rate and atrial fibrillation. He sees a call center analyst in [place], who will manage treatment of his atrial fibrillation. If he tolerates clear liquids today and x-ray is improved, discharge tomorrow afternoon will be considered if he tolerates solid food. Flat and upright abdominal films will be done tomorrow morning. cc: MD Ashvin Finch MD
--- NOTE | 2019-08-26 12:07 | GENERAL SURGERY PROGRESS NOTE ---
DATE: 08/26/2019 SUBJECTIVE: The patient reports to be feeling better. No nausea or vomiting. He does have some abdominal discomfort and distention. He has passed a lot of gas. OBJECTIVE: He is afebrile. Vital signs are stable.General: He is awake, alert, oriented x3. GI: Soft, obese. Hypoactive bowel sounds. Minimal tenderness. LABORATORY: CBC and metabolic profile reviewed and unremarkable. ASSESSMENT AND PLAN: A 73-year-old male with GI dysfunction. Differential is small bowel obstruction versus gastroenteritis. He appears to be improving. We will start him on a clear liquid diet and observe his tolerance. cc: MD Ashvin Rodriguez MD
[2019-08-27] MEDS: DILAUDID IV PRN ×7 (01:38→21:40)
[2019-08-27] MEDS: ALBUTEROL NEB INH SCH ×4 (03:58→23:32)
[2019-08-27] MEDS: HUMULIN R SUBQ SCH ×4 (06:01→21:39)
[2019-08-27] MEDS: NORVASC PO SCH (08:41)
[2019-08-27] MEDS: ZYRTEC PO SCH (08:41)
[2019-08-27] MEDS: PRILOSEC PO SCH (08:41)
[2019-08-27] MEDS: LOPID PO SCH ×2 (08:41→21:39)
[2019-08-27] MEDS: COREG PO SCH ×2 (08:41→21:39)
--- NOTE | 2019-08-27 08:43 | Diag Imaging Result Doc PS360 ---
EXAM: ABDOMEN FLAT/UPRIGHT INDICATION: pain TECHNIQUE: 2 views COMPARISON: 07/18/2019 FINDINGS: There is patchy stool seen throughout the colon. There is a short loop of small bowel in the left upper quadrant containing gas and mild distention. It is not as significant as the previous study, however. There is no evidence of organomegaly. IMPRESSION: Nonspecific mild gaseous distention of a loop of small bowel on the left that is not as significant as the previous study. Electronically signed by Ludwin Pacheco 08/27/2019 8:40 AM
[2019-08-27] MEDS ORDERED: LASIX PO SCH (09:00)
--- NOTE | 2019-08-27 11:09 | PROGRESS NOTE ---
DATE: 08/27/2019 Vital signs stable with temperature 98 degrees, heart rate 66, respirations 17, blood pressure 154/89, O2 saturation 97 on room air. He is tolerating the liquids and ambulating fairly well. He continues to pass gas. Flat and upright abdominal films show improvement with less gas. PLAN: Increase diet to soft GI. If he tolerates this well by tomorrow, discharge will be considered. cc: MD Ashvin Finch MD
--- NOTE | 2019-08-27 17:31 | GENERAL SURGERY PROGRESS NOTE ---
DATE: 08/27/2019 SUBJECTIVE: The patient is doing well. He denies abdominal pain, nausea, vomiting, or fever. He is tolerating his diet and having flatus. OBJECTIVE: He is afebrile. Vital signs are stable.General: He is awake, alert, oriented x3. No acute distress. Gastrointestinal: Soft, nontender, nondistended. IMAGING: His abdominal x-ray showed nonspecific mild gaseous distention of a loop of small bowel that is not as significant as the previous study. ASSESSMENT AND PLAN: A 73-year-old male with small bowel obstruction versus enteritis. It is much improved. His diet has been advanced. There are no acute surgical plans at this time. cc: MD Ashvin Rodriguez MD
[2019-08-28] MEDS: SPIRIVA INH SCH (00:04)
[2019-08-28] MEDS: DILAUDID IV PRN ×2 (01:18→04:24)
[2019-08-28] MEDS ORDERED: DULCOLAX PR ONE (03:59)
[2019-08-28] MEDS: ALBUTEROL NEB INH SCH (04:32)
[2019-08-28] MEDS: HUMULIN R SUBQ SCH (06:15)
--- NOTE | 2019-08-28 06:27 | GENERAL SURGERY PROGRESS NOTE ---
DATE: 08/28/2019 SUBJECTIVE: Patient seems to be doing well. He has passed gas, but has not had a bowel movement. OBJECTIVE: Vital Signs: Patient is currently afebrile. His vital signs stable. General: No acute distress. HEENT: Normocephalic, atraumatic. Pupils equal, round, and reactive to light. Mucous membranes moist. Oropharynx benign. Neck: Supple. Trachea midline. Cardiovascular: Regular rate and rhythm. Lungs: Grossly clear. Abdomen: Soft, somewhat distended, but nontender. Bowel sounds auscultated. Extremities: Moves all extremities. Neurologic: Grossly intact. Skin: No signs of jaundice. Vascular: All extremities perfused. LABORATORY: None this morning as of yet. ASSESSMENT AND PLAN: A 73-year-old gentleman with resolving small bowel obstruction versus enteritis. Small bowel obstruction. At this time, I think it is improving. He is on GI mechanical soft diet. I think he can probably be discharged here in the near future. From a surgical point of view, no immediate surgical plans. cc: MD Ashvin Osullivan MD
[2019-08-28 07:45] VITALS: BP 155/76
[2019-08-28] MEDS: NORVASC PO SCH (08:26)
[2019-08-28] MEDS: ZYRTEC PO SCH (08:26)
[2019-08-28] MEDS: COREG PO SCH (08:26)
[2019-08-28] MEDS: PRILOSEC PO SCH (08:26)
[2019-08-28] MEDS: LOPID PO SCH (08:26)
--- NOTE | 2019-08-28 08:32 | PROGRESS NOTE ---
DATE: 08/28/2019 SUBJECTIVE: Patient is feeling better. He is sitting up, eating breakfast well. At the last of the interview, he said he felt like he needed to have a bowel movement. Indeed, he did go and have a good bowel movement this morning. Dr. Bey had seen him earlier this morning and felt he was doing better as well. The patient does complain of a headache, left-sided. He had a subdural hematoma about 10 to 14 days ago, and is off anticoagulation due to that fact. He was followed at [facility] by neurosurgery and by his board turner, and left off of the aspirin and Xarelto due to that bleeding. It was small and contained. It did not require surgery. OBJECTIVE: Afebrile. Vital signs stable. CV: Irregularly irregular. Lungs: Clear. Abdomen: Protuberant. Active bowel sounds. Extremities: No calf tenderness, cords, or edema. Neurologic: Cranial nerves 2-12 are intact. Nonfocal. PERRL. EOMI. Laboratory Data: Reviewed during the hospitalization. Blood sugars in the 100s. ASSESSMENT: 1. Small bowel obstruction, resolved, with history of recurrent episodes, evaluated by Dr. Najera outpatient with recommendation for Dr. Najera to continue conservative treatment as it has been effective longstanding. 2. Recent subdural hematoma requiring patient to be off aspirin and Xarelto. 3. Chronic atrial fibrillation. 4. Insulin-dependent diabetes mellitus. 5. Hypertension. 6. Hypercholesterolemia. PLAN: We will discharge the patient back on home medications he was on after discharge from [facility] a week and a half ago. He will remain off aspirin and Xarelto as recommended by his board turner. They are considering restarting this in 2 weeks. Otherwise, gave him [place] 7.5 for headache and encouraged him to try not to use it more than 3 days a week to avoid rebound headaches. He will drink lots of water. Continue Metamucil b.i.d. Ambulation encouraged. We will resume his home insulin dosage. We will monitor his blood sugar very closely. cc: Ashvin Law MD
--- NOTE | 2019-09-15 14:09 | DISCHARGE SUMMARY ---
ADMISSION DATE: 08/25/2019 DISCHARGE DATE: 08/28/2019 DIAGNOSES: 1. Small bowel obstruction with resolution with conservative treatment. 2. Recent subdural hematoma with patient remaining off aspirin and Xarelto. 3. Chronic atrial fibrillation. 4. Insulin dependent diabetes mellitus. 5. Hypertension. 6. Hypercholesterolemia. CONSULTANTS: Dr. Bey, general surgery. PROCEDURES: CT scan abdomen and pelvis with IV contrast only revealing some improvement in dilation of the small bowel. REASON FOR ADMISSION AND HOSPITAL COURSE: The patient is a 74-year-old white male followed in my medical practice who had recently had a subdural hematoma and was transferred to the hospital over in [place], where he was monitored by neurosurgery and he did not require any surgical procedures. He does have a history of frequent small-bowel obstruction, thought related to adhesions and subsequently developed some difficulty with abdominal pain, bloating, and no bowel movements. No gas passage. He was admitted to the hospital here and received NG tube, some Dulcolax suppositories, IV fluids and repeat serial x-rays, which showed slow general correction of the SBO and by 08/27 he was passing gas and eating and ambulating. He had remained off the aspirin and Xarelto he had been on long-term due to the recent subdural hematoma. He resolved with the small bowel obstruction and he was noted to be discharged home. DISCHARGE MEDICATIONS WERE: Lasix 20 mg p.o. every other day, Spiriva 1 puff daily. He will remain off the aspirin and Xarelto. Coreg 6.25 mg p.o. b.i.d., Lopid 600 mg p.o. b.i.d., Flomax 0.4 mg p.o. at bedtime, Metamucil 0.4 g capsule b.i.d., Zyrtec 10 mg p.o. daily, Novolin 70/30 insulin 52 units subcutaneous q.a.m., multivitamin 1 p.o. daily, Prilosec 20 mg p.o. daily, Daliresp 500 mcg p.o. at bedtime, Crestor 40 mg p.o. at bedtime, Norvasc 10 mg p.o. daily, duo nebs q.2 hours p.r.n. cough or wheezing, Serevent Diskus 50 mcg 1 puff b.i.d., Prospect 7.5 mg p.o. q. 6 hours p.r.n. pain. FOLLOWUP: He will follow up in my office in 1 week with consideration given to resuming aspirin and Xarelto at that time. cc: Ashvin Law MD
== END 2019-08-28 09:09 | disposition home or self-care (01) | DRG 390 ==
LOC: ED 23:59 → 3N 08-25 04:24 → SUATTDRO 08-25 04:24 → 3N 08-26 23:32
PROVIDERS: ADMIT Family Medicine; ATTEND Family Medicine

== ENCOUNTER 2019-09-07 16:35 | Observation (INO) ==
[2019-09-07 17:19] LABS: BASO# 0.03 X1000 (0.0-0.2); BASO% 0.4 % (0.0-0.8); EOS# 0.15 X1000 (0.0-0.7); EOS% 1.9 % (0.0-10.0); HEMATOCRIT 38.9 % (42.0-52.0); INR 0.94; LYMPH# 1.51 X1000 (1.2-3.4); LYMPH% 19.4 % (20.5-51.1); MCH 26.3 PG (27-31); MCHC 30.8 g/dL (33-37); MCV 85.3 FL (81-99); MONO# 0.67 X1000 (0.11-0.59); MONO% 8.6 % (1.7-9.3); MPV 10.4 FL (7.4-10.4); NEUT# 5.43 X1000 (1.4-6.5); NEUT% 69.7 % (42.2-75.2); PLT 221 X1000 (130-400); PROTIME 12.7 Seconds (11.0-16.0); RBC 4.56 XMIL (4.7-6.1); RDW 14.8 % (11.5-14.5); WBC 7.79 X1000 (4.8-10.8)
[2019-09-07 17:20] LABS: PTT 26.6 Seconds (22.3-41.8)
[2019-09-07 17:35] LABS: AGAP 10; ALB/GLOB RATIO 1.4; ALKALINE PHOSPHATASE 120 U/L (32-122); BUN 17 mg/dL (8-22); CALCIUM 9.5 mg/dL (8.8-10.2); CHLORIDE 103 mmol/L (98-107); COSMO 291; CREATININE 1.1 mg/dL (0.7-1.2); ESTIMATED GFR > 60; GLUCOSE 306 mg/dL (70-104); GOT 11 U/L (10-34); GPT 7 U/L (10-44); POTASSIUM 4.8 mmol/L (3.5-5.1); SODIUM 139 mmol/L (136-145); TCO2 26 mmol/L (25-35); TOTAL BILIRUBIN 0.21 mg/dL (0.20-1.00); TOTAL PROTEIN 6.9 g/dL (6.3-8.3)
--- NOTE | 2019-09-07 17:38 | Diag Imaging Result Doc PS360 ---
CT HEAD W/O CONTRAST - 09/07/2019 INDICATION: stroke like symptoms COMPARISON: 08/17/2019 FINDINGS: There has been significant decrease in the size and density of the now chronic left subdural hemorrhage. No new hemorrhages. The ventricles and sulci are otherwise grossly normal. The skull is intact. The sinuses, mastoids, and middle ears are clear. IMPRESSION: Decrease in size and density of the now chronic left subdural hemorrhage. No new abnormalities. This exam was performed using automated exposure control, adjustment of mA or kV according to patient size, and/or use of iterative reconstruction technique Electronically signed by Earnest Montero 09/07/2019 5:36 PM
[2019-09-07 18:06] LABS: URINE SOURCE CLEAN CATCH
[2019-09-07 18:09] LABS: BILIRUBIN URINE NEGATIVE (NEGATIVE); BLOOD URINE SMALL (NEGATIVE); COLOR YELLOW; GLUCOSE URINE 1000 mg/dL (NEGATIVE); KETONE URINE NEGATIVE (NEGATIVE); LEUKOCYTES URINE NEGATIVE (NEGATIVE); NITRITE URINE NEGATIVE (NEGATIVE); PH URINE 6.5; PROTEIN URINE 100 mg/dL (NEGATIVE); SP GRAVITY URINE 1.012; TURBIDITY URINE CLEAR (CLEAR); UROBILINOGEN URINE NORMAL (NORMAL)
[2019-09-07 18:10] LABS: UR EPITHELIAL CELLS <10 /HPF (<10); URINE BACTERIA NEGATIVE /HPF; URINE RBC <10 /HPF (<10); URINE WBC <10 /HPF (<10)
[2019-09-07 18:22] LABS: UR AMPHETAMINES QUAL NONE DETECTED (NONE DETECT); UR BARBITUATES QUAL NONE DETECTED (NONE DETECT); UR BENZODIAZEPIN QUAL NONE DETECTED (NONE DETECT); UR CANNABINOIDS QUAL NONE DETECTED (NONE DETECT); UR COCAINE QUAL NONE DETECTED (NONE DETECT); UR METHADONE QUAL NONE DETECTED (NONE DETECT); UR OPIATES QUAL NONE DETECTED (NONE DETECT); UR OXYCODONE QUAL NONE DETECTED (NONE DETECT); UR PCP QUAL NONE DETECTED (NONE DETECT)
--- NOTE | 2019-09-07 18:32 | Diag Imaging Result Doc PS360 ---
CHEST-PORTABLE - 09/07/2019 INDICATION: stroke like symptoms COMPARISON: 08/17/2019 FINDINGS: The lungs are normally expanded and clear. Heart size and mediastinal contours are normal. No pneumothorax or pleural effusion. IMPRESSION: Negative exam. Electronically signed by Earnest Montero 09/07/2019 6:29 PM
[2019-09-07] MEDS ORDERED: DILAUDID IV ONE (18:43)
[2019-09-07] MEDS ORDERED: ZOFRAN IV ONE (18:44)
--- NOTE | 2019-09-07 19:04 | PROVIDER DOCUMENTATION ---
This chart was entered by Concha Pacheco Scribe, acting as scribe for Jose Adams MD. HPI-Neurological Disorder - General Chief Complaint: Stroke-Like Symptoms Stated Complaint: "STROKE SYMPTOMS" Time Seen by Provider: 09/07/19 16:46 Source: patient Allergies/Adverse Reactions: Patient Allergies Allergy/AdvReac Type Severity Reaction Status Date / Time No Known Allergies Allergy Verified 08/25/19 04:56 Home Medications: Home Medication List Medication Instructions Recorded Confirmed Last Taken Type Carvedilol [Coreg] 6.25 mg PO BID 10/13/16 09/07/19 07/15/19 History Furosemide [Lasix] 20 mg PO EVERY OTHER DAY 10/13/16 09/07/19 07/15/19 History Gemfibrozil 600 mg PO BID 10/13/16 09/07/19 07/15/19 History Tiotropium [place] Inhaler 1 puff INH QHS 10/13/16 08/25/19 07/14/19 History [Spiriva] Tamsulosin HCl 0.4 mg PO QHS 02/13/19 08/25/19 07/14/19 History Psyllium Husk [Metamucil] 0.4 gm PO BID 03/01/19 08/25/19 07/15/19 History Amlodipine Besylate [Norvasc] 10 mg PO DAILY 07/15/19 09/07/19 07/15/19 History Cetirizine HCl [Zyrtec] 10 mg PO DAILY 07/15/19 08/25/19 07/15/19 History Multivitamin [Multivitamins] 1 ea PO DAILY 07/15/19 08/25/19 07/15/19 History Omeprazole [Prilosec] 20 mg PO DAILY 07/15/19 08/25/19 07/15/19 History Roflumilast [Daliresp] 500 mcg PO HS 07/15/19 09/07/19 07/14/19 History Rosuvastatin Calcium [Crestor] 40 mg PO HS 07/15/19 08/25/19 07/14/19 History Albuterol 2.5MG/Ipratrop 0.5MG 3 ml INH Q2H PRN PRN 08/25/19 09/07/19 Unknown History [Duoneb (A & A)] Insulin NPH Hum/Reg Insulin Hm 52 units SUBQ QAM 08/25/19 09/07/19 Unknown History [Relion Novolin 70-30 Flexpen] Salmeterol Xinafoate [Serevent 1 puff INH BID 08/25/19 08/25/19 Unknown History Diskus] Insulin NPH Hum/Reg Insulin Hm 32 units SQ WSUPPER #0 08/28/19 09/07/19 07/14/19 Rx [Novolin 70-30 100 Unit/ml Vial] Hydrocodone/APAP 7.5 mg/325 mg 1 ea PO Q6H PRN PRN 09/07/19 09/07/19 Unknown History [[place]-7.5] - History of Present Illness-Neuro Nature of Presenting Problem: 73 yowm c/o RLE numbness starting this am that lasted for 10-15 mins, has resolved in er. pt also c/o severe lau's. pt denies slurred speech and weakness. pt sts he had recent syncopal episode. pt was seen in [facility] about 1 mon ago for subdural hematoma. pt has not been on regular anticoagulant. pt is NVI and a&ox3. Onset/Duration: reports: this morning Timing: reports: still present (lau), resolved prior to arrival (rle numbness) Context: reports: other (numbess rle and lau) Character of Altered Mental Status: reports: N/A Any recent trauma/injury?: reports: other (subdural hematoma) New weakness or altered sensation location:: reports: RLE (numbness, has resolved) Cognitive Baseline: alert, oriented x3 Associated Symptoms: reports: headache Recently seen or treated by another doctor?: Yes Review of Systems - Adult - REVIEW OF SYSTEMS - ADULT Constitutional: reports: no symptoms reported. denies: fever, fatique, night sweats Eyes: reports: no symptoms reported Ears, Nose, Mouth & Throat: reports: no symptoms reported Cardiovascular: reports: no symptoms reported Respiratory: reports: no symptoms reported Gastrointestinal: reports: no symptoms reported Genitourinary: reports: no symptoms reported Musculoskeletal: reports: no symptoms reported Integumentary: reports: no symptoms reported Neurological: reports: see HPI, headache/migraines, numbness (RLE), syncope (recent episode). denies: loss of balance, paresthesia, slurred speech, tremors Psychiatric: reports: no symptoms reported Endocrine: reports: no symptoms reported Hematologic/Lymphatic: reports: no symptoms reported Allergic/Immunologic: reports: no symptoms reported All Other Systems: Reviewed and Negative Past History - Adult - PAST MEDICAL HISTORY-ADULT Review of Records: reports: Nursing Assessment Review, Medications Reviewed, Social history reviewed & non-contributory. Major Childhood Illnesses: reports: denies history Cardiovascular: reports: denies history Respiratory: reports: COPD Gastrointestinal: reports: obstruction (x7), other (diverticulitis) Obstetrical/Gynecological: reports: denies history Genitourinary: reports: denies history Musculoskeletal: reports: denies history Neurological: reports: denies history Psychiatric: reports: denies history Endocrine/Immune: reports: denies history Other Conditions: reports: denies history - PRIOR SURGERIES/PROCEDURES Surgical/Procedure History: reports: cholecystectomy, cardiac stent (3), hernia repair, bowel surgery (Small bowel obstruction) - IMMUNIZATION STATUS Childhood Immunizations: See Nurse Assessment Flu Vaccine: See Nurse Assessment - FAMILY HISTORY Family History: reviewed, not pertinent - SOCIAL HISTORY Smoking: other (former smoker) Substance Use: none/never Physical Exam- Neurological - Physical Exam-Neuro Initial Vital Signs Reviewed: Yes General Appearance: appears well, alert, no apparent distress, obese. 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 negative: abnormal speech, facial asymmetry, facial droop Motor/Sensory: no motor deficit, no sensory deficit. 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 negative: aphasia, motor weakness, sensory deficit Integumentary: normal color, normal turgor, warm/dry Psych/Mental Status: normal mood/affect, normal thought content, normal thought process, oriented x 3 - Glascow Coma Scale Best Eye Response: (4) open spontaneously Best Verbal Response: (5) oriented Best Motor Response: (6) obeys commands Total Glascow Score: 15 Progress - PLAN OF CARE/RESULTS Progress/Plan/Lab Results: Vital Signs - 8 hr 09/07/19 16:37 Temperature 98.1 F Pulse Rate 69 Respiratory Rate 18 Blood Pressure 175/78 O2 Sat by Pulse Oximetry 97 Laboratory Results - last 24 hr 09/07/19 09/07/19 09/07/19 17:00 17:00 17:00 WBC 7.79 RBC 4.56 L Hgb 12.0 L Hct 38.9 L MCV 85.3 MCH 26.3 L MCHC 30.8 L RDW Std Deviation 14.8 H Plt Count 221 MPV 10.4 Immature Gran % (Auto) 0.0 Neut % (Auto) 69.7 Lymph % (Auto) 19.4 L Hutch[place] % (Auto) 8.6 Eos % (Auto) 1.9 Baso % (Auto) 0.4 Immature Gran # (Auto) 0.00 Neut # (Auto) 5.43 Lymph # (Auto) 1.51 [place] # (Auto) 0.67 H Eos # (Auto) 0.15 Baso # (Auto) 0.03 PT INR PTT (Actin FS) Sodium 139 Potassium 4.8 Chloride 103 Carbon Dioxide 26 Anion Gap 10 BUN 17 Creatinine 1.1 Estimated GFR/1.73 m2 > 60 BUN/Creatinine Ratio 15 Glucose 306 H Calculated Osmolality 291 Calcium 9.5 Total Bilirubin 0.21 AST 11 ALT 7 L Alkaline Phosphatase 120 Troponin T High Sens 25 H Total Protein 6.9 Albumin 4.0 Globulin 2.9 Albumin/Globulin Ratio 1.4 Urine Source Urine Color Urine Turbidity Urine pH Ur Specific [place] Urine Protein Ur Glucose (Stick) Ur Ketones (Stick) Urine Blood Urine Nitrite Urine Bilirubin Urobilinogen Dipstick Urine Leukocytes Urine WBC (Auto) Urine RBC (Auto) U Epithel Cells (Auto) Urine Bacteria (Auto) Urine Opiates Screen Ur Oxycodone Screen Ur Methadone, Qual Ur Barbiturates Screen Ur Phencyclidine Scrn Ur Amphetamines Screen U Benzodiazepines Scrn Urine Cocaine Screen U Cannabinoids Screen 09/07/19 09/07/19 09/07/19 17:00 17:57 17:57 WBC RBC Hgb Hct MCV MCH MCHC RDW Std Deviation Plt Count MPV Immature Gran % (Auto) Neut % (Auto) Lymph % (Auto) [place] % (Auto) Eos % (Auto) Baso % (Auto) Immature Gran # (Auto) Neut # (Auto) Lymph # (Auto) [place] # (Auto) Eos # (Auto) Baso # (Auto) PT 12.7 INR 0.94 PTT (Actin FS) 26.6 Sodium Potassium Chloride Carbon Dioxide Anion Gap BUN Creatinine Estimated GFR/1.73 m2 BUN/Creatinine Ratio Glucose Calculated Osmolality Calcium Total Bilirubin AST ALT Alkaline Phosphatase Troponin T High Sens Total Protein Albumin Globulin Albumin/Globulin Ratio Urine Source CLEAN CATCH Urine Color YELLOW Urine Turbidity CLEAR Urine pH 6.5 Ur Specific [place] 1.012 Urine Protein 100 A Ur Glucose (Stick) 1000 A Ur Ketones (Stick) NEGATIVE Urine Blood SMALL A Urine Nitrite NEGATIVE Urine Bilirubin NEGATIVE Urobilinogen Dipstick NORMAL Urine Leukocytes NEGATIVE Urine WBC (Auto) <10 Urine RBC (Auto) <10 U Epithel Cells (Auto) <10 Urine Bacteria (Auto) NEGATIVE Urine Opiates Screen NONE DETECTED Ur Oxycodone Screen NONE DETECTED Ur Methadone, Qual NONE DETECTED Ur Barbiturates Screen NONE DETECTED Ur Phencyclidine Scrn NONE DETECTED Ur Amphetamines Screen NONE DETECTED U Benzodiazepines Scrn NONE DETECTED Urine Cocaine Screen NONE DETECTED U Cannabinoids Screen NONE DETECTED Orders Category Date Time Status Cardiac Monitoring DIRECTED Care 09/07/19 16:49 Active Finger Stick Blood Sugar (ED) DIRECTED Care 09/07/19 16:49 Active Oxygen Therapy- ED Nursing DIRECTED Care 09/07/19 16:49 Active Saline Loc NOW Care 09/07/19 16:49 Active CHEST-PORTABLE [RAD] Stat Exams 09/07/19 16:[address] HEAD W/O CONTRAST [CT] Stat Exams 09/07/19 16:49 Completed CBC WITH ELECTRONIC DIFF [HEME] Stat Lab 09/07/19 17:00 Completed COMPREHENSIVE METABOLIC PANEL [CHEM] Stat Lab 09/07/19 17:00 Completed PROTIME WITH INR [COAG] Stat Lab 09/07/19 17:00 Completed PTT [COAG] Stat Lab 09/07/19 17:00 Completed TROPONIN T HIGH SENSITIVITY Stat Lab 09/07/19 17:00 Completed URINALYSIS W/POSS RFLX CULT [URINALYSIS] Stat Lab 09/07/19 17:57 Completed URINE DRUG SCREEN Stat Lab 09/07/19 17:57 Completed Hydromorphone [Dilaudid] Med 09/07/19 18:43 Discontinued 1 mg IV NOW ONE Ondansetron [Zofran] Med 09/07/19 18:44 Discontinued 4 mg IV NOW ONE EKG [EKG] Stat Ther 09/07/19 16:49 Ordered Result Diagrams: 09/07/19 17:00 09/07/19 17:00 - EKG 1 Time of EKG reading by physician:: 17:02 EKG Read and Signed by:: Jose Adams EKG Interpretation (*Must complete 3 of following elements*): Abnormal Rate: 56 Rhythm: Sinus Bradycardia [place]: normal QRS: other (abnormal QRS angle, consider primary T wave abnormality) NC Interval: normal ST Wave: non-specific ST changes (ST abnormality) - XRAY 1 XRAY Study: Chest Impression: Normal, See EMR Report ( CHEST-PORTABLE - 09/07/2019 INDICATION: stroke like symptoms COMPARISON: 08/17/2019 FINDINGS: The lungs are normally expanded and clear. Heart size and mediastinal contours are normal. No pneumothorax or pleural effusion. IMPRESSION: Negative exam. Electronically signed by Earnest Montero 09/07/2019 6:29 PM 09/07/19 [id number]) - CT/MRI 1 CT Study: Head Impression: See EMR Report (CT HEAD W/O CONTRAST - 09/07/2019 INDICATION: stroke like symptoms COMPARISON: 08/17/2019 FINDINGS: There has been significant decrease in the size and density of the now chronic left subdural hemorrhage. No new hemorrhages. The ventricles and sulci are otherwise grossly normal. The skull is intact. The sinuses, mastoids, and middle ears are clear. IMPRESSION: Decrease in size and density of the now chronic left subdural hemorrhage. No new abnormalities. This exam was performed using automated exposure control, adjustment of mA or kV according to patient size, and/or use of iterative reconstruction technique Electronically signed by Earnest Montero 09/07/2019 5:36 PM) Comparison with other Films: changes noted - CONSULTS/PCP/HOSPITALIST Notification #1 *Consult/PCP/Hospitalist*: Dr. Barnes for Dr. Law Time Discussed: 18:40 Consult Disposition: Admit Departure - Departure Date of Disposition Decision: 09/07/19 Time of Disposition Decision: 19:03 DIAGNOSIS: Leg numbness Disposition: ADMITTED INPATIENT 09 Certified Medical Emergency: Emergent Condition: Fair Referrals and Follow-Ups: Ashvin Law MD [Primary Care Provider] - - Critical Care Note This patient required my direct & personal management of CC.: No Attestation - Physician/ OFELIA Attestation Patient care was provided by Advanced Practice Provider:: No The physician spent face to face time with patient:: Yes Advanced Practice Provider documentation review:: Supervising physician onsite and consulted in the evaluation and care of this patient. The physician did have a face to face encounter with the patient. This chart was documented by the indicated scribe, (Concha Pacheco, Alesia) and accurately reflects the services I performed and decisions made by me, Jose Adams MD, as attested by the provider's signature.
[2019-09-07] MEDS ORDERED: DUONEB (A & A) INH PRN (21:40)
[2019-09-07] MEDS ORDERED: CRESTOR PO SCH (22:15)
[2019-09-07] MEDS ORDERED: SPIRIVA INH SCH (22:15)
[2019-09-07] MEDS ORDERED: FLOMAX PO SCH (22:15)
--- NOTE | 2019-09-07 22:28 | HISTORY AND PHYSICAL ---
lpCHIEF COMPLAINT: Stroke-like symptoms, mostly tingling and numbness in the right leg. HISTORY OF PRESENT ILLNESS: He is a 73-year-old pleasant white gentleman, a patient of Dr. Law. Apparently, he talked to Dr. Law's office this morning about this tingling and numbness in the right leg. He was advised to go to the emergency room. Recently, he had a subdural hematoma and bowel obstruction. Since then, he has been off blood thinners. He has intermittent atrial fibrillation. He also has some headaches. The symptoms lasted about less than 1 hour, completely resolved. He denies of any weakness. No back pain. It did not involve the right half of the body. The emergency room physician evaluated the patient. CT head showed resolution of the bilateral subdural hemorrhage. The patient wants to be admitted for observation to rule out CVA. The symptoms looks like a TIA symptoms, which is not very classical. As a result, a hospital admission was warranted. PAST MEDICAL HISTORY: 1. CAD diagnosed in 1998, status post 3 stents in 2010. 2. Hypertension. 3. Hyperlipidemia. 4. COPD. 5. Diverticulosis. 6. Complicated diabetes. 7. Bowel obstruction due to adhesions. 8. Abdominal aneurysm 3.4 cm paroxysmal atrial fibrillation. Recent subdural hematoma. PAST SURGICAL HISTORY: Reported open cholecystectomy, incarcerated hernia, perforated colon requiring colostomy and reversal in 1993 and testicular abscess drainage. ALLERGIES: Reported to none. SOCIAL HISTORY: He lives in a [place], [place]. He has been , 3 children. 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 Quit smoking in 2011 after 22-eesl-vavg smoking. No alcohol abuse. FAMILY HISTORY: Father of emphysema. Mother of some type of infection. Second-degree relatives have strokes and colon cancers. HEALTH MAINTENANCE: Pneumococcal vaccine 23 was given 01/10/2018. Prevnar-13 2014. Zostavax 2016. Flu vaccine 2019. MEDICINES: Prior to the admission: 1. Lasix 20 mg daily 2. Spiriva 1 puff at bedtime. 3. Coreg 6.25 p.o. b.i.d. 4. Lopid 600 p.o. b.i.d. 5. Flomax 0.4 at bedtime. 6. Cetirizine 10 daily. 7. Multivitamin 1 tablet daily. 8. Prilosec 20 daily. 9. Daliresp 500 mcg at bedtime. 10. Crestor 40 mg daily. 11. Amlodipine 10 daily. 12. DuoNeb 1 puff q.6h as needed. 13. ReliOn 70/30 reported 32 units at supper, 52 in the morning. 14. Serevent Diskus 1 puff p.o. b.i.d. 15. [place] 7.5 q.6h as needed. REVIEW OF SYSTEMS: HEENT: Headaches. No vision problem. No facial asymmetry. No earache. No sore throat. Neck: No neck pain. No goiter. No lymphadenopathy. Cardiopulmonary: No chest pain, shortness of breath, PND, orthopnea. GI: No nausea, vomiting, abdominal pain. No constipation. No altered bowel habits. : No history of hesitancy, frequency, dysuria. Tingling and numbness in the right leg. No weakness. No claudication symptoms. Neuro exam: No other focal symptoms or seizures, dizziness, or vertigo. PHYSICAL EXAMINATION: VITAL SIGNS: Temperature is 98 degrees, pulse 69, blood pressure is 175/78. Height 5 feet 9. 200 pounds. HEENT: Atraumatic, normocephalic. Pupils equal, reactive to light. No facial asymmetry noted. Tongue is in the midline. NECK: Supple. JVD is normal. No carotid bruit heard. No goiter. No lymphadenopathy. CHEST: Bilateral air entry. HEART: Sounds are regular. ABDOMEN: Belly is soft, obese, nontender. Open cholecystectomy scar noted. RECTAL: Deferred. NEURO: Alert oriented to time, place, and person. No obvious deficits. No weakness. No cerebellar sign. No meningeal signs noted. Gait is normal. INVESTIGATIONS: White cell count 7.7, hematocrit 38.9, platelets 221,000. PT/INR is normal. SMA 7: Sodium 139, potassium 4.8, chloride 103, BUN 17, creatinine 1.1, glucose 306. Liver function tests were normal. Troponin is 25. Urinalysis is negative. Urine toxic screen was negative. CT head, decrease in size and density of left subdural hemorrhage. No new abnormalities. Chest x- ray negative. ASSESSMENT AND PLAN: 1. A 73-year-old white gentleman with above problems admitted to the hospital with a tingling and numbness in the right leg. It does not appear to be classical transient ischemic attack symptoms. Completely resolve. Etiology to be determined. We will get MRI of the brain. If it is negative, Dr. Law will follow up on the disposition. 2. Headaches. Wants Dilaudid as needed. 3. Paroxysmal atrial fibrillation, off on aspirin and Xarelto. 4. 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 5. Type 2 diabetes insulin dependent. Follow up on insulin with sliding scale coverage and continue on 70/30 insulin. 6. Reconcile home medications. Continue neuro checks and look for other causes and Dr. Law is going to follow up. Discussed the plan of care with the patient in the emergency room. cc: MD Ashvin Miguel MD [facility]
[2019-09-07] MEDS: DILAUDID IV PRN (22:29)
[2019-09-07] MEDS: HUMULIN R SUBQ SCH (23:35)
[2019-09-07] MEDS: COREG PO SCH (23:45)
[2019-09-07] MEDS: LOPID PO SCH (23:45)
[2019-09-07] MEDS: METAMUCIL PO SCH (23:46)
[2019-09-08] MEDS: DILAUDID IV PRN ×2 (02:18→09:39)
[2019-09-08] MEDS ORDERED: INSULIN PEN NEEDLES ONE (06:14)
[2019-09-08] MEDS: HUMULIN R SUBQ SCH (06:26)
--- NOTE | 2019-09-08 06:54 | EKG Report ---
Test Performed on : 09/07/2019 5:02:02 PM Test Reason : Stroke like symptoms Blood Pressure : / mmHG Vent. Rate : 056 BPM Atrial Rate : 056 BPM P-R Int : 128 ms QRS Dur : 088 ms QT Int : 424 ms P-R-T Axes : 102 040 112 degrees QTc Int : 409 ms Sinus bradycardia. Nonspecific ST abnormality Abnormal QRS-T angle, consider primary T wave abnormality Abnormal ECG When compared with ECG of 07-SEP-2019 16:59, (Unconfirmed) Previous ECG has undetermined rhythm, needs review Unconfirmed Result
[2019-09-08] MEDS ORDERED: PRILOSEC PO SCH (07:00)
[2019-09-08] MEDS ORDERED: HUMULIN 70/30 SUBQ SCH ×2 (07:00→17:00)
[2019-09-08] MEDS ORDERED: SEREVENT DISKUS INH SCH (07:30)
[2019-09-08 07:38] VITALS: BP 139/73
[2019-09-08] MEDS: LOPID PO SCH (08:48)
[2019-09-08] MEDS: METAMUCIL PO SCH (08:48)
[2019-09-08] MEDS: COREG PO SCH (08:49)
[2019-09-08] MEDS ORDERED: NORVASC PO SCH (09:00)
[2019-09-08] MEDS ORDERED: LASIX PO SCH (09:00)
--- NOTE | 2019-09-08 12:24 | Diag Imaging Result Doc PS360 ---
EXAM: MRI BRAIN W/WO CONTRAST INDICATION: CVA COMPARISON: CT head dated 09/07/2019 and 08/17/2019. No prior MRI brain is available for comparison. FINDINGS: There is no evidence of acute infarct. There is patchy T2/FLAIR hyperintensity in the periventricular and subcortical white matter suggesting mild to moderate microangiopathy. There is a known aging subdural hematoma mainly along the left tentorial leaflet but also along the falx and overlying the left convexity. There has been little if any change in the size of the hematoma when compared to the CT from 08/17/2019. It exhibits high T1 and T2 signal, which is suggestive of a late subacute hematoma. Similar to previous CTs, there is subtle effacement of the left lateral ventricle. No new hematoma is appreciated. The surrounding soft tissues and bony structures are essentially unremarkable. IMPRESSION: 1.Known aging left subdural hematoma that is very similar in size as compared to previous CTs as described above. 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 No evidence of acute ischemic infarct. Electronically signed by Ludwin Pacheco 09/08/2019 12:21 PM
--- NOTE | 2019-09-08 13:10 | DISCHARGE SUMMARY ---
ADMISSION DATE: 09/07/2019 DISCHARGE DATE: 09/08/2019 The patient initially admitted to Dr. Law, but changed to me as Dr. Law did not have an opportunity to see the patient. FINAL DIAGNOSES: 1. Subdural hematoma on the left. This is chronic and resolving. 2. Weakness and tingling in the right leg, resolved. It lasted about 15 minutes. SECONDARY DIAGNOSES: 1. Diabetes mellitus. 2. Coronary artery disease. 3. Hypertension. 4. Hyperlipidemia. 5. Chronic obstructive pulmonary disease. 6. Diverticulosis. 7. History of bowel obstruction due to adhesions. 8. Abdominal aneurysm at 3.4 cm. 9. The patient also has atrial fibrillation that is intermittent. He appears to have a sinus bradycardia with PACs on his telemetry. 10. Headaches. PRESENT ILLNESS: The patient came in after calling Dr. Law's office yesterday around noon or a little bit before noon stating that he had gotten up, and his right leg went numb and weak. He thought he was going to fall but he caught himself. This lasted for about [address] Law suggested he come to the emergency room. By the time he got here, this has all resolved and has not reoccurred. His CT scan of his head showed a subdural hematoma, which he had had previously. Apparently, about 3 weeks or so ago, he had a fall. He does not remember whether he hit his head or not, but they could not find any bruising around his head. He had lost consciousness, and they were concerned because at the time he was on blood thinners because of his intermittent atrial fibrillation, and he was having a subdural hematoma with questionable active bleeding to his brain. He was sent to [facility], and evaluated by Neurology and Neurosurgery. They elected not to operate on him at that time. This stabilized and he did have headaches, and they told him he would have for the next few weeks. He was taken off of his blood thinners. He was discharged, and was doing alright except for headaches for which he was taking Tylenol. When he came in the hospital, he wanted some relief from his headaches and was given Dilaudid. We sat and talked about the use of narcotics right now. He had tried one at home, and he thinks it was [place], but he is not sure. He had side effects from it, and could not tolerate it. Also, the fact that he has had a bowel obstruction, falls, and brain bleed all would be contraindications to taking narcotics or at least relative contraindications. He says at this time he is willing to just take Tylenol. MRI scan today shows only a subdural hematoma which seems to be aging appropriately, and no other significant intracranial problems. PHYSICAL EXAMINATION: Vital Signs: Blood pressure 139/73, respirations 19, pulse 59, and temperature 97.9 degrees Fahrenheit. HEENT: He is normocephalic. EOMS intact. PERRLA. Throat clear. Lungs are clear to auscultation and percussion without rhonchi, rales, or wheezes. Heart: Bradycardic without murmurs, gallops, or friction rubs. Abdomen: Soft. Active bowel sounds. No organomegaly or tenderness. Neurological: Intact grossly. He has no weakness in the right lower extremity at this time. DISCUSSION: We sat and talked about this, and really unless there is some other sources causing that weakness in the right leg all we can do right now is wait and watch. He had no back pain with this. He had no buttocks pain with it to indicate any sort of disk problem or back problem though I suppose if this reoccurred, you could consider doing an MRI scan of his spine just to make sure there was not a tumor there, but there has really been no other indication. This may have all been from some irritation from the subdural hematoma, and just was a little atypical in that it occurred late. The patient is eager to go home. His lab work shows his white count is normal at 7790, and hemoglobin 12.0. Electrolytes essentially normal. Blood glucose was 306 when he came in. He had 1,000 glucose in his urine. Toxicology screen was done, and it was all negative. One troponin slightly up, and troponin T is 25. He has had no chest pains. No other symptoms with this. This is just barely up. The patient feels like he should go home, and he will contact Dr. Law on Wednesday and set up an appointment for recheck. I feel like he is stable at this point. Certainly, if any thing comes up or this recurs, he should let us know. His blood sugars have been a little high at home, but he says Dr. Law has been working with him to get these under control. We will let him do so. We will discharge him home on his regular home medications. May use Tylenol for headache. cc: MD Ashvin Cantu Jr, MD MTDD
[2019-09-08] MEDS ORDERED: HUMULIN R SUBQ SCH (16:00)
== END 2019-09-08 13:32 | disposition home or self-care (01) ==
LOC: ED 16:35 → 3N 21:10 → INTOOBSV 21:10
PROVIDERS: ADMIT Family Medicine; ATTEND Emergency Medicine